=== PATIENT | female | born 1950 | race Caucasian/White ===

== ENCOUNTER 2018-03-23 09:32 | Emergency (ER) | payer MEDICARE, OTHER ==
[2018-03-23] MEDS ORDERED: guaiFENesin/DEXTROMETHORPHAN 10 ML UDC PO STA (11:29)
[2018-03-23] MEDS ORDERED: OXYMETAZOLINE NASAL SPRAY NAS STA (11:29)
--- NOTE | 2018-03-23 13:01 | XRAY Report ---
Reason: cough RUL ronchi Procedure Date: 03/23/2018 Accession Number: [id number] / [id number] Procedure: XR - Chest 2 View X-Ray CPT Code: 43777 FULL RESULT: EXAM: CHEST RADIOGRAPHY EXAM DATE: 03/23/2018 12:35 PM. CLINICAL HISTORY: Cough RUL ronchil. COMPARISON: None. TECHNIQUE: 2 views. FINDINGS: Lungs/Pleura: Mild medial right lower lung atelectasis or infiltrate. No dense consolidation. Probable minimal focal atelectasis or scarring at the left lateral lung base. No pleural effusion. No pneumothorax. Mediastinum: Heart and mediastinal contours are unremarkable. Other: None. IMPRESSION: Mild medial right lower lung infiltrate or atelectasis. RADIA
--- NOTE | 2018-03-23 13:29 | ED Physician Documentation ---
History of Present Illness - Stated complaint Stated Complaint: SOA/COUGH - Chief complaint Chief Complaint: Resp - Additonal information Additional information: hx from pt 67 f to ED with cough congestion for several days rest of family with same recently moved from [place] and no PMD no leg swelling Review of Systems Constitutional: reports: Myalgias. denies: Fever Nose: reports: Congestion Respiratory: reports: Cough GI: denies: Vomiting, Diarrhea Musculoskeletal: denies: Extremity swelling Immunocompromised: denies: Immunocompromised PD PAST MEDICAL HISTORY - Past Medical History Past Medical History: Yes Cardiovascular: None Respiratory: None Neuro: None Endocrine/Autoimmune: None GI: None [employer]ACHINE: Uterine cancer, Breast cancer : None HEENT: Chronic hearing loss Psych: None Musculoskeletal: None Derm: None - Past Surgical History Past Surgical History: Yes General: Cholecystectomy, Appendectomy /ST[employer]ACHINE: Hysterectomy, Mastectomy - Present Medications Home Medications: Ambulatory Orders Medication Instructions Recorded Confirmed Acetaminophen 650 mg ORAL Q6HR PRN 03/23/18 03/23/18 Albuterol Sulf [Ventolin Hfa 90 mcg INH Q6H PRN 03/23/18 03/23/18 Inhaler] Alprazolam [Xanax] 1 mg ORAL DAILY 03/23/18 03/23/18 Anastrozole 1 mg ORAL DAILY 03/23/18 03/23/18 Azithromycin [Zithromax] 250 mg PO DAILY #6 tablet 03/23/18 Fluticasone [Flonase] 50 mcg INH 03/23/18 03/23/18 QUEtiapine [SEROquel] 1 tab ORAL 03/23/18 Sertraline HCl [Zoloft] 200 mg ORAL DAILY 03/23/18 03/23/18 Tiotropium [place] [Spiriva] 1 cap ORAL DAILY 03/23/18 03/23/18 diphenhydrAMINE [Benadryl] 25 mg ORAL Q6H PRN 03/23/18 03/23/18 guaiFENesin/DEXTROMETHORPHAN 10 ml PO Q6H PRN #120 ml 03/23/18 [Robitussin Dm] predniSONE [Deltasone] 60 mg PO DAILY 5 Days #15 tablet 03/23/18 - Allergies Allergies/Adverse Reactions: Allergies Allergy/AdvReac Type Severity Reaction Status Date / Time No Known Drug Allergies Allergy Verified 03/23/18 09:50 - Social History Does the pt smoke?: Yes Smoking Status: Current every day smoker Does the pt drink ETOH?: No Does the pt have substance abuse?: No - Immunizations Immunizations are current?: Yes - POLST Patient has POLST: No PD ED PE NORMAL - Vitals Vital signs reviewed: Yes - General General: Alert and oriented X 3 - HEENT HEENT: Pharynx benign, Other (no sinus TTP). No: Ears normal (L TM retracted) - Neck Neck: Supple, no meningeal sign - Cardiac Cardiac: RRR - Respiratory Respiratory: Other (RUL ronchi) - Abdomen Abdomen: Soft - Derm Derm: Normal color - Extremities Extremities: No edema, No calf tenderness / cord - Neuro Neuro: Alert and oriented X 3 Results - Vitals Vitals: Vital Signs - 24 hr 03/23/18 03/23/18 09:48 10:30 Temperature 35.6 C L 36.4 C L Heart Rate 103 H Respiratory 20 Rate Blood Pressure 129/94 H O2 Saturation 96 Oxygen O2 Source Room air - Labs Labs: Laboratory Tests 03/23/18 10:38 Influenza A (Rapid) Negative Influenza B (Rapid) Negative Departure - Departure Disposition: 01 Home, Self Care Clinical Impression: Pneumonia Qualifiers: Pneumonia type: due to unspecified organism Laterality: right Lung location: lower lobe of lung Qualified Code(s): J18.1 - Lobar pneumonia, unspecified organism Condition: Good Instructions: ED Pneumonia Adult Prescriptions: Azithromycin [Zithromax] 250 mg PO DAILY #6 tablet guaiFENesin/DEXTROMETHORPHAN [Robitussin Dm] 10 ml PO Q6H PRN #120 ml PRN Reason: Cough predniSONE [Deltasone] 60 mg PO DAILY 5 Days #15 tablet Comments: The xray shows a right sided pneumonia I have prescribed antibiotics and cough medication Use you inhaler every 4 hr as needed. if you have worsening cough or shortness of breath add the steroids I prescribed
[2018-03-23 13:53] VITALS: BP 128/90
== END 2018-03-23 13:52 | disposition home or self-care (01) ==
LOC: ED 09:32
DX: J18.1 Lobar pneumonia, unspecified organism (principal); F17.200 Nicotine dependence, unspecified, uncomplicated
CPT/HCPCS: 71046; 87275; 87276; 99283; A9270

== ENCOUNTER 2018-07-22 11:45 | Outpatient (CLI) | payer MEDICARE, OTHER ==
[2018-07-22 18:44] LABS: BASOPHILS % (AUTO) 0.7 %; EOSINOPHILS # (AUTO) 0.1 10^3/uL (0.0-0.7); HGB - HEMOGLOBIN 13.5 g/dL (12.0-16.0); LYMPHOCYTES # (AUTO) 2.3 10^3/uL (1.5-3.5); LYMPHOCYTES % (AUTO) 33.5 %; MEAN CORPUSCULAR HEMOGLOBIN 30.6 pg (27.0-31.0); MEAN CORPUSCULAR HGB CONC 33.3 g/dL (32.0-36.0); MEAN CORPUSCULAR VOLUME 91.8 fL (81.0-99.0); MONOCYTES # (AUTO) 0.5 10^3/uL (0.0-1.0); MONOCYTES % (AUTO) 7.1 %; NEUTROPHILS # (AUTO) 3.9 10^3/uL (1.5-6.6); NEUTROPHILS % (AUTO) 56.7 %; PLT - PLATELET COUNT 258 10^3/uL (130-450); RED BLOOD COUNT 4.41 10^6/uL (4.20-5.40); RED CELL DISTRIBUTION WIDTH 14.6 % (12.0-15.0); WHITE BLOOD COUNT 6.8 x10^3/uL (4.8-10.8)
[2018-07-22 19:15] LABS: ALBUMIN 3.9 g/dL (3.2-5.5); ALBUMIN/GLOBULIN RATIO 1.1 (1.0-2.2); BILIRUBIN,TOTAL 0.3 mg/dL (0.2-1.0); CALCIUM 9.4 mg/dL (8.5-10.3); CREATININE 0.7 mg/dL (0.4-1.0); TOTAL PROTEIN 7.3 g/dL (6.7-8.2)
== END 2018-07-22 11:46 | disposition home or self-care (01) ==
LOC: LAB.WCP 11:45
PROVIDERS: ATTEND Nurse Practitioner
DX: R06.02 Shortness of breath (principal)
CPT/HCPCS: 36415; 80053; 85025

== ENCOUNTER 2018-07-27 09:19 | Outpatient (CLI) | payer MEDICARE, OTHER ==
[2018-07-27] MEDS ORDERED: ALBUTEROL NEB 2.5 MG/3 ML INH SCH (09:42)
== END 2018-07-27 09:20 | disposition home or self-care (01) ==
LOC: RT 09:19
PROVIDERS: ATTEND Nurse Practitioner
DX: R06.02 Shortness of breath (principal); F17.200 Nicotine dependence, unspecified, uncomplicated
CPT/HCPCS: 94010; 94664; 94729

== ENCOUNTER 2018-09-05 12:57 | Outpatient (CLI) | payer MEDICARE, OTHER ==
--- NOTE | 2018-09-06 08:37 | DEXA Report ---
Reason: BONE DISORDER Procedure Date: 09/05/2018 Accession Number: [id number] / [id number] Procedure: DEX - Dexa Spine and/or Hip CPT Code: FULL RESULT: EXAM: Dexa Spine and/or Hip DATE: 09/05/2018 1:18 PM CLINICAL HISTORY: BONE DISORDER TECHNIQUE: Dual energy x-ray absorptiometry (DXA) was performed on a [employer] System. Regions measured are the AP Spine, femoral neck, and if needed forearm. COMPARISON: None. In accordance with the International Society for Clinical Densitometry (ISCD) guidelines, data from previous exams may be reanalyzed using current recommendations and techniques. This is done to allow a more accurate basis for comparison with the current study. FINDINGS: The data for the lumbar spine is as follows: BMD (g/cm/cm) T-SCORE Z-SCORE REGION L1 0.885 -2.0 -1.6 L2 0.920 -2.3 -1.9 L3 0.998 -1.7 -1.2 L4 1.053 -1.2 -0.7 TOTAL 0.972 -1.7 -1.3 NOTE: All evaluable vertebrae are used for classification The data for the hip is as follows: BMD (g/cm/cm) T-SCORE Z-SCORE REGION Neck 0.801 -1.7 -0.8 TOTAL 0.895 -0.9 -0.3 NOTE: The femoral neck or total proximal femur, whichever is lowest, is used for classification. IMPRESSION: THE WHO CLASSIFICATION BASED ON THE INTERNATIONAL REFERENCE STANDARD IS OSTEOPENIA. THE FRACTURE RISK IS INCREASED. RECOMMENDATION: Patients with diagnosis of osteoporosis or osteopenia should have regular bone mineral density assessment. For those eligible for Medicare, routine testing is allowed once every 2 years. Testing frequency can be increased for patients who have rapidly progressing disease or for those who are receiving medical therapy to restore bone mass. COMMENT: World Health Organization (WHO) definitions for osteoporosis and osteopenia: NORMAL BMD: T-score at -1.0 or higher, fracture risk is low OSTEOPENIA BMD: T-score between -1.0 and -2.5, fracture risk is increased. OSTEOPOROSIS BMD: T-score at -2.5 or lower, fracture risk is high. National Osteoporosis Foundation recommends: 1. Obtain adequate dietary calcium (at least 1200 mg per day) and vitamin D (400-800 international units per day). 2. Participate, as appropriate, in regular weightbearing and muscle-strengthening exercise. 3. Avoid tobacco use and reduce alcohol and caffeine intake. 4. For more detailed information see the website at www.NOF.org.
== END 2018-09-05 12:58 | disposition home or self-care (01) ==
LOC: DI 12:57
PROVIDERS: ATTEND Nurse Practitioner
DX: M85.89 Other specified disorders of bone density and structure, multiple sites (principal)
CPT/HCPCS: 77080

== ENCOUNTER 2018-09-09 11:30 | Outpatient (CLI) | payer MEDICARE, OTHER | END 2018-09-09 11:31 | disposition home or self-care (01) | LOC: LAB.WCP 11:30 | PROVIDERS: ATTEND Family Medicine | DX: M89.9 Disorder of bone, unspecified (principal); F41.8 Other specified anxiety disorders; Z13.29 Encounter for screening for other suspected endocrine disorder | CPT/HCPCS: 36415; 84443 ==

== ENCOUNTER 2018-11-05 10:39 | Emergency (ER) | payer MEDICARE, OTHER ==
[2018-11-05 10:46] VITALS: BP 118/86
== END 2018-11-05 12:00 | disposition left against medical advice (07) ==
LOC: ED 10:39
DX: Z53.21 Procedure and treatment not carried out due to patient leaving prior to being seen by health care provider (principal)

== ENCOUNTER 2019-01-30 09:47 | Outpatient (CLI) | payer MEDICARE, OTHER ==
[2019-01-30 12:12] LABS: ALBUMIN 3.6 g/dL (3.2-5.5); BILIRUBIN,TOTAL 0.4 mg/dL (0.2-1.0); CREATININE 0.7 mg/dL (0.4-1.0); TOTAL PROTEIN 7.3 g/dL (6.7-8.2)
[2019-01-30 12:59] LABS: BASOPHILS % (AUTO) 0.4 %; EOSINOPHILS # (AUTO) 0.2 10^3/uL (0.0-0.7); EOSINOPHILS % (AUTO) 1.9 %; LYMPHOCYTES # (AUTO) 1.6 10^3/uL (1.5-3.5); LYMPHOCYTES % (AUTO) 19.3 %; MEAN CORPUSCULAR HEMOGLOBIN 30.4 pg (27.0-31.0); MEAN CORPUSCULAR HGB CONC 31.9 g/dL (32.0-36.0); MEAN CORPUSCULAR VOLUME 95.1 fL (81.0-99.0); MEAN PLATELET VOLUME 10.2 fL (7.9-10.8); MONOCYTES # (AUTO) 0.6 10^3/uL (0.0-1.0); NEUTROPHILS # (AUTO) 5.9 10^3/uL (1.5-6.6); PLT - PLATELET COUNT 253 10^3/uL (130-450); RED BLOOD COUNT 4.28 10^6/uL (4.20-5.40); RED CELL DISTRIBUTION WIDTH 13.9 % (12.0-15.0); WHITE BLOOD COUNT 8.3 x10^3/uL (4.8-10.8)
== END 2019-01-30 23:59 | disposition home or self-care (01) ==
LOC: LAB.N 09:47
PROVIDERS: ATTEND Family Medicine
DX: R10.9 Unspecified abdominal pain (principal)
CPT/HCPCS: 36415; 80053; 82150; 83690; 85025

== ENCOUNTER 2019-01-30 09:55 | Outpatient (CLI) | payer MEDICARE, OTHER ==
--- NOTE | 2019-01-30 14:08 | XRAY Report ---
Reason: abdominal discomfort Procedure Date: 01/30/2019 Accession Number: [id number] / [id number] Procedure: XRN - Abdomen Acute CPT Code: FULL RESULT: EXAM: ABDOMINAL SERIES AND PA CHEST EXAM DATE: 01/30/2019 10:29 AM. CLINICAL HISTORY: Abdominal discomfort; left flank pain. COMPARISON: CHEST 2 VIEW 03/23/2018 12:29 PM. TECHNIQUE: 2 views abdomen and 1 view chest. FINDINGS: CHEST: Lungs/Pleura: No focal opacities. No effusion or pneumothorax. Mediastinum: Within exam limitations, cardiomediastinal contour is normal. ABDOMEN: Bowel Gas Pattern: Within normal limits. No dilated loops or abnormal fluid levels. Free Air: None. Other: Tiny focus of right upper quadrant calcification of unknown etiology. Differential diagnosis includes cholelithiasis, right renal calculus, and osteochondral calcification. Otherwise no visualized calcifications. No evidence of radiopaque left intrarenal calculus. IMPRESSION: 1. Tiny right upper quadrant calcification of unknown etiology. 2. No acute cardiopulmonary abnormality. 3. Otherwise unremarkable abdomen. RADIA
== END 2019-01-30 09:56 | disposition home or self-care (01) ==
LOC: DI.N 09:55
PROVIDERS: ATTEND Family Medicine
DX: R10.9 Unspecified abdominal pain (principal); R93.5 Abnormal findings on diagnostic imaging of other abdominal regions, including retroperitoneum
CPT/HCPCS: 36415; 74022; 80053; 82150; 83690; 85025

== ENCOUNTER 2019-02-03 09:30 | Outpatient (CLI) | payer MEDICARE, OTHER | END 2019-02-03 23:59 | disposition home or self-care (01) | LOC: LAB.R 09:30 | PROVIDERS: ATTEND Family Medicine | DX: R10.9 Unspecified abdominal pain (principal) | CPT/HCPCS: 87493 ==

== ENCOUNTER 2019-02-03 10:04 | Outpatient (CLI) | payer MEDICARE, OTHER ==
--- NOTE | 2019-02-05 10:26 | Ultrasound Report ---
Reason: ABDOMINAL DISCOMFORT Procedure Date: 02/03/2019 Accession Number: [id number] / [id number] Procedure: US - Abdomen Complete CPT Code: FULL RESULT: EXAM: ABDOMEN ULTRASOUND EXAM DATE: 02/03/2019 10:48 AM. CLINICAL HISTORY: Abdominal discomfort. COMPARISON: None. TECHNIQUE: Real-time scanning was performed with static images obtained. FINDINGS: Liver: Diffusely increased in echotexture with mildly diminished beam penetration consistent with probable steatosis. No focal lesions appreciated. 17.2 cm. Main portal vein flow: Hepatopetal. Gallbladder: Surgically absent. Biliary System: Common bile duct measures 13.1 mm in the proximal aspect with gradual taper to 4 mm in the distal duct. No intrahepatic ductal dilatation. No evidence of choledocholithiasis. Pancreas: Visualized portion is unremarkable. Kidneys: Right: 11.7 cm longitudinally. Normal. No contour-deforming mass, stones, or hydronephrosis. Left: 12.5 cm longitudinally. Normal. No contour-deforming mass, stones, or hydronephrosis. Spleen: 12.1 x 4.0 x 9.5 cm. Normal in size and echotexture. Aorta and Inferior Vena Cava: Unremarkable. Aortic diameters 2.6 cm proximal, 2.3 cm mid, and 1.8 x 1.7 cm distally. Other: None. IMPRESSION: 1. Probable hepatic steatosis. 2. Prominence of the extrahepatic common bile duct consistent with prior cholecystectomy. RADIA
== END 2019-02-03 10:05 | disposition home or self-care (01) ==
LOC: DI 10:04
PROVIDERS: ATTEND Family Medicine
DX: R10.9 Unspecified abdominal pain (principal)
CPT/HCPCS: 76700; 87493

== ENCOUNTER 2019-06-26 08:00 | Outpatient (CLI) | payer MEDICARE, OTHER | END 2019-06-26 23:59 | disposition home or self-care (01) | LOC: LAB.R 08:00 | PROVIDERS: ATTEND Family Medicine | DX: R39.9 Unspecified symptoms and signs involving the genitourinary system (principal) | CPT/HCPCS: 87077; 87086 ==

== ENCOUNTER 2019-07-15 08:00 | Outpatient (CLI) | payer MEDICARE, OTHER | END 2019-07-15 23:59 | disposition home or self-care (01) | LOC: LAB.R 08:00 | PROVIDERS: ATTEND Family Medicine | DX: J06.9 Acute upper respiratory infection, unspecified (principal) | CPT/HCPCS: 87275; 87276 ==

== ENCOUNTER 2019-07-15 14:14 | Outpatient (CLI) | payer MEDICARE, OTHER ==
--- NOTE | 2019-07-15 14:56 | XRAY Report ---
Reason: shoulder joint pain,right Procedure Date: 07/15/2019 Accession Number: [id number] / [id number] Procedure: XRN - Shoulder 3 View RT CPT Code: Final Report FULL RESULT: EXAM: RIGHT SHOULDER RADIOGRAPHY EXAM DATE: 07/15/2019 02:36 PM. CLINICAL HISTORY: Shoulder joint pain, right. COMPARISON: ABDOMEN ACUTE 01/30/2019 10:11 AM. TECHNIQUE: 3 views. FINDINGS: Healed previous fracture of the right humeral head/neck, healed bone extending medially and caudally to the glenohumeral articulation. The glenohumeral articulation space and acromioclavicular space appear preserved. IMPRESSION: Healed previous right humeral head/neck fracture. No acute bone processes identified. RADIA
== END 2019-07-15 14:15 | disposition home or self-care (01) ==
LOC: DI.N 14:14
PROVIDERS: ATTEND Family Medicine
DX: M25.511 Pain in right shoulder (principal); J06.9 Acute upper respiratory infection, unspecified
CPT/HCPCS: 87275; 87276

== ENCOUNTER 2019-08-05 12:37 | Outpatient (CLI) | payer MEDICARE, OTHER ==
--- NOTE | 2019-08-07 09:29 | CT Report ---
Reason: TOBACCO USER Procedure Date: 08/05/2019 Accession Number: [id number] / [id number] Procedure: CT - Low Dose Lung Cancer Screen CPT Code: Final Report FULL RESULT: EXAM CT LUNG SCREEN EXAM DATE: 08/05/2019 12:49 PM. HISTORY: 68-year-old patient with 21-ffyv-feck smoking history. Currently smoking: Yes. History of breast cancer with mastectomy 2015. COMPARISON: CHEST W/O 08/05/2018 11:16 AM. TECHNIQUE: CT examination of the entire thorax without contrast was performed using low-dose technique. Thin section coronal, axial, sagittal and MIP axial images were obtained. In accordance with CT protocol optimization, one or more of the following dose reduction techniques were utilized for this exam: automated exposure control, adjustment of mA and/or KV based on patient size, or use of iterative reconstructive technique. FINDINGS: Nodules: Right upper lobe: Calcified posterior right upper lobe subpleural granuloma. Right middle lobe: None. Right lower lobe: None. Left upper lobe: Stable tiny 2 mm left upper lobe lung nodule in series 4 image 77. Left lower lobe: None. Emphysema: None. Pleura: Unremarkable. Aorta: Mild atherosclerotic calcifications. No thoracic aortic aneurysm or intramural hematoma. Mediastinum: Unremarkable. Coronary calcifications: Mild to moderate. Other pulmonary findings: None. Other extrapulmonary findings: Prior right mastectomy. Prior cholecystectomy. IMPRESSION: Lung-RADS ASSESSMENT CATEGORY: 2 - benign appearance or behavior. Probability of malignancy: Less than 1%. RECOMMENDATION: Continue annual screening with LDCT in 12 months. RADIA
== END 2019-08-05 12:38 | disposition home or self-care (01) ==
LOC: DI 12:37
PROVIDERS: ATTEND Internal Medicine Hematology & Oncology
DX: Z12.2 Encounter for screening for malignant neoplasm of respiratory organs (principal); F17.210 Nicotine dependence, cigarettes, uncomplicated

== ENCOUNTER 2019-08-18 19:22 | Outpatient (CLI) | payer MEDICARE, OTHER | END 2019-08-18 19:23 | disposition home or self-care (01) | LOC: COV 19:22 | PROVIDERS: ATTEND Family Medicine | DX: R05 Cough (principal); R06.02 Shortness of breath; R06.2 Wheezing | CPT/HCPCS: 81599 ==

== ENCOUNTER 2019-12-30 07:00 | Outpatient (CLI) | payer MEDICARE, OTHER | END 2019-12-30 23:59 | disposition home or self-care (01) | LOC: LAB.R 07:00 | PROVIDERS: ATTEND Family Medicine | DX: J06.9 Acute upper respiratory infection, unspecified (principal); Z20.828 Contact with and (suspected) exposure to other viral communicable diseases ==

== ENCOUNTER 2019-12-31 13:59 | Outpatient (CLI) | payer MEDICARE, OTHER ==
--- NOTE | 2020-01-01 05:47 | Mammography Report ---
UNILATERAL LEFT DIGITAL SCREENING MAMMOGRAM 3D/2D: 12/31/2019 CLINICAL: Routine screening. Personal history of right breast cancer. Comparison is made to exams dated: 01/20/2016 ultrasound and 11/18/2018 mammogram - [facility]. The tissue of left breast is predominantly fatty. No significant masses, calcifications, or other findings are seen in the breast. There has been no significant interval change. IMPRESSION: NEGATIVE There is no mammographic evidence of malignancy. A 1 year screening mammogram is recommended. This exam was interpreted at Station ID: [id number]. NOTE: For mammograms, a report in lay terms will be sent to the patient. Approximately 15% of breast malignancies will not be visualized mammographically. In the management of a palpable breast mass, a negative mammogram must not discourage biopsy of a clinically suspicious lesion. Electronically Signed By: Slime stack/penrad:12/31/2019 15:35:45 ACR BI-RADS Category 1: Negative 3341F PARENCHYMAL PATTERN: (F) - The breast(s) demonstrate(s) diffuse fatty replacement. BI-RADS CATEGORY: (1) - 1 RECOMMENDATION: (ANNUAL) - Recommend routine annual screening mammography. [id number] 1 year screening LATERALITY: (B)
== END 2019-12-31 14:00 | disposition home or self-care (01) ==
LOC: DI 13:59
PROVIDERS: ATTEND Internal Medicine Hematology & Oncology
DX: Z12.31 Encounter for screening mammogram for malignant neoplasm of breast (principal); Z85.3 Personal history of malignant neoplasm of breast
CPT/HCPCS: 77063

== ENCOUNTER 2020-01-31 12:46 | Emergency (ER) | payer MEDICARE, OTHER ==
[2020-01-31] MEDS ORDERED: predniSONE 20 MG TABLET PO STA (13:46)
--- NOTE | 2020-01-31 13:51 | ED Physician Documentation ---
History of Present Illness - Stated complaint Stated Complaint: SOA - Chief complaint Chief Complaint: Resp - History obtained from History obtained from: Patient, Family - History of Present Illness Timing: How many days ago (2) Pain level max: 0 Pain level now: 0 - Additonal information Additional information: 69-year-old female presents to the emergency department complaining of cough and congestion for the past 2 days. Has a history of COPD, is on Spiriva and albuterol. Occasionally uses a Spiriva, has not used her albuterol. No fevers. No chills. States had a negative coronavirus test 3 weeks ago. Feels like the cough is dry. She has been taking decongestants as well. No rash. No abdominal pain. No nausea or vomiting. Review of Systems Constitutional: denies: Fever, Chills GI: denies: Vomiting, Diarrhea Skin: denies: Rash Musculoskeletal: denies: Neck pain, Back pain Neurologic: denies: Headache PD PAST MEDICAL HISTORY - Past Medical History Cardiovascular: None Respiratory: None Neuro: None Endocrine/Autoimmune: None GI: None MAITRE D': Uterine cancer, Breast cancer : None HEENT: Chronic hearing loss Psych: None Musculoskeletal: None Derm: None - Past Surgical History Past Surgical History: Yes General: Cholecystectomy, Appendectomy /MAITRE D': Hysterectomy, Mastectomy - Present Medications Home Medications: Ambulatory Orders Medication Instructions Recorded Confirmed Acetaminophen 650 mg ORAL Q6HR PRN 03/23/18 01/28/20 Albuterol Sulf [Ventolin Hfa 90 mcg INH Q6H PRN 03/23/18 01/28/20 Inhaler] Alprazolam [Xanax] 1 mg ORAL DAILY 03/23/18 01/28/20 Fluticasone [Flonase] 50 mcg INH PRN PRN 03/23/18 01/28/20 QUEtiapine [SEROquel] 1 tab ORAL DAILY 03/23/18 01/28/20 Sertraline HCl [Zoloft] 200 mg ORAL DAILY 03/23/18 01/28/20 Tiotropium [place] [Spiriva] 1 cap ORAL DAILY 03/23/18 01/28/20 diphenhydrAMINE [Benadryl] 25 mg ORAL Q6H PRN 03/23/18 01/28/20 guaiFENesin/DEXTROMETHORPHAN 10 ml PO Q6H PRN #120 ml 11/24/18 09/30/20 [Robitussin Dm] Quetiapine Fumarate [Seroquel] 50 mg PO DAILY 05/27/18 01/28/20 Sertraline HCl [Zoloft] 2 tab PO DAILY 05/27/18 01/28/20 Tiotropium [place] [Spiriva] 18 mcg IH BID 05/27/18 01/28/20 Anastrozole [Arimidex] 1 mg PO DAILY #90 tab 01/28/20 predniSONE [Deltasone] 10 mg PO [id number] #42 tab 01/31/20 - Allergies Allergies/Adverse Reactions: Allergies Allergy/AdvReac Type Severity Reaction Status Date / Time No Known Drug Allergies Allergy Verified 01/31/20 13:05 - Social History Does the pt smoke?: Yes Smoking Status: Current every day smoker Does the pt drink ETOH?: No Does the pt have substance abuse?: No - Immunizations Immunizations are current?: Yes - POLST Patient has POLST: No PD ED PE NORMAL - Vitals Vital signs reviewed: Yes - General General: Alert and oriented X 3, No acute distress - HEENT HEENT: Moist mucous membranes - Neck Neck: Supple, no meningeal sign - Cardiac Cardiac: RRR - Respiratory Respiratory: Other (Diminished breath sounds bilaterally. No respiratory distress) - Abdomen Abdomen: Soft, Non tender, Non distended - Derm Derm: Warm and dry, No rash - Extremities Extremities: No edema - Neuro Neuro: Alert and oriented X 3 - Psych Psych: Normal mood, Normal affect Results - Vitals Vitals: Vital Signs - 24 hr 01/31/20 01/31/20 12:54 14:48 Temperature 37 C Heart Rate 98 71 Respiratory 20 15 Rate Blood Pressure 132/83 H 126/72 O2 Saturation 97 96 Oxygen O2 Source Room air - Rads (name of study) cxr Radiology: Prelim report reviewed, EMP read contemporaneously, See rad report (No acute disease) PD MEDICAL DECISION MAKING - ED course Complexity details: reviewed results, re-evaluated patient, considered differential, d/w patient ED course: 69-year-old female with what appears to be a viral upper respiratory infection. She is well-appearing, nontoxic. No respiratory distress. Will place on a steroid taper for her likely COPD. She will start to use her albuterol inhaler at home with a spacer. Patient counseled regarding signs and symptoms for which I believe and urgent re-evaluation would be necessary. Patient with good understanding of and agreement to plan and is comfortable going home at this time This document was made in part using voice recognition software. While efforts are made to proofread this document, sound alike and grammatical errors may occur. Coronavirus test was sent. Departure - Departure Disposition: Home, Self Care Clinical Impression: Upper respiratory tract infection Qualifiers: URI type: unspecified viral URI Qualified Code(s): J06.9 - Acute upper respiratory infection, unspecified Condition: Good Instructions: ED Viral Syndrome Follow-Up: SARA PABLO MD [Primary Care Provider] - Within 1 week Prescriptions: predniSONE [Deltasone] 10 mg PO [id number] #42 tab Comments: Begin to use your albuterol inhaler at home. Make sure you are using it with a spacer. Your coronavirus test should return in the next 24 to 48 hours. Your x-ray does not show any pneumonia. No antibiotics are indicated at this time. Return if you worsen. Discharge Date/Time: 01/31/20 14:54
--- NOTE | 2020-01-31 14:32 | XRAY Report ---
PROCEDURE: Chest 1 View X-Ray INDICATIONS: cough TECHNIQUE: One view of the chest was acquired. COMPARISON: CT chest August 05, 2019 FINDINGS: Surgical changes and devices: None. Lungs and pleura: No pleural effusions or pneumothorax. Lungs are clear. Mediastinum: Mediastinal contours appear normal. Heart size is normal. Bones and chest wall: No suspicious bony lesions. Degenerative changes of the right glenohumeral yola nt. Overlying soft tissues appear unremarkable. IMPRESSION: No acute cardiopulmonary abnormality. Reviewed by: Jose Roberto Bauer on 01/31/2020 1:31 PM RUPA Approved by: Jose Roberto Bauer on 01/31/2020 1:31 PM RUPA Station ID: [id number]
[2020-01-31 14:49] VITALS: BP 126/72
== END 2020-01-31 14:54 | disposition home or self-care (01) ==
LOC: ED 12:46
DX: J06.9 Acute upper respiratory infection, unspecified (principal); J44.9 Chronic obstructive pulmonary disease, unspecified; F17.200 Nicotine dependence, unspecified, uncomplicated; Z20.828 Contact with and (suspected) exposure to other viral communicable diseases
CPT/HCPCS: 71045; 99284; J7512; U0004

== ENCOUNTER 2020-02-04 08:00 | Outpatient (CLI) | payer MEDICARE, OTHER | END 2020-02-04 23:59 | disposition home or self-care (01) | LOC: LAB.R 08:00 | PROVIDERS: ATTEND Nurse Practitioner | DX: J06.9 Acute upper respiratory infection, unspecified (principal); Z20.828 Contact with and (suspected) exposure to other viral communicable diseases ==

== ENCOUNTER 2020-02-27 13:00 | Outpatient (CLI) | payer MEDICARE, OTHER | END 2020-02-27 23:59 | disposition home or self-care (01) | LOC: LAB.R 13:00 | PROVIDERS: ATTEND Family Medicine | DX: J44.1 Chronic obstructive pulmonary disease with (acute) exacerbation (principal); Z20.828 Contact with and (suspected) exposure to other viral communicable diseases ==

== ENCOUNTER 2020-08-02 10:52 | Outpatient (CLI) | payer MEDICARE, OTHER | END 2020-08-02 10:53 | disposition home or self-care (01) | LOC: LAB 10:52 | PROVIDERS: ATTEND Internal Medicine | DX: Z53.9 Procedure and treatment not carried out, unspecified reason (principal) ==

== ENCOUNTER 2020-11-22 11:47 | Outpatient (CLI) | payer MEDICARE, OTHER | END 2020-11-22 23:59 | disposition home or self-care (01) | LOC: LAB.N 11:47 | PROVIDERS: ATTEND Family Medicine | DX: R05 Cough (principal); Z20.822 Contact with and (suspected) exposure to COVID-19 ==

== ENCOUNTER 2020-12-21 13:26 | Outpatient (CLI) | payer MEDICARE, OTHER ==
--- NOTE | 2020-12-22 10:00 | XRAY Report ---
PROCEDURE: Shoulder 3 View RT INDICATIONS: R SHOULDER PX TECHNIQUE: 3 views of the shoulder were acquired. COMPARISON: None. FINDINGS: Bones: Old healed impacted right proximal humeral fracture is seen. Moderate acromioclavicular joint and glenohumeral joint osteoarthritic changes are noted. No acute fracture or dislocation. No suspic ious bony lesions. Visualized ribs appear intact. Soft tissues: No suspicious soft tissue calcifications. IMPRESSION: Moderate right shoulder joint osteoarthritis and old healed impacted right proximal [place] ral fracture. No acute fracture or dislocation. Reviewed by: Paulo Dimas MD on 12/22/2020 9:58 AM PDT Approved by: Paulo Dimas MD on 12/22/2020 9:58 AM PDT Station ID: [id number]
== END 2020-12-21 23:59 | disposition home or self-care (01) ==
LOC: DI.N 13:26
PROVIDERS: ATTEND Family Medicine
DX: M19.011 Primary osteoarthritis, right shoulder (principal); S42.201D Unspecified fracture of upper end of right humerus, subsequent encounter for fracture with routine healing

== ENCOUNTER 2021-01-31 08:00 | Outpatient (CLI) | payer MEDICARE, OTHER | END 2021-01-31 23:59 | disposition home or self-care (01) | LOC: LAB.N 08:00 | PROVIDERS: ATTEND Family Medicine | DX: Z20.822 Contact with and (suspected) exposure to COVID-19 (principal) ==

== ENCOUNTER 2021-02-16 07:00 | Outpatient (CLI) | payer MEDICARE, OTHER ==
--- NOTE | 2021-02-16 15:14 | DEXA Report ---
PROCEDURE: Dexa Spine and/or Hip INDICATIONS: OSTEOPENIA TECHNIQUE: Dual energy x-ray absorptiometry (DXA) was performed on a [employer] System. Regions measur ed are the AP Spine, femoral neck, and if needed forearm. COMPARISON: September 05, 2018 FINDINGS: Lumbar Spine: Bone Mineral Density 1.007 g/cm/cm,T score -1.4, osteopenia. Left Femoral Neck: Bone Mineral Density 0.765 g/cm/cm, T score -2, osteopenia. (T score greater or equal to -1.0: NORMAL) (T score from -1.1 to -2.4: OSTEOPENIA) (T score less than or equal to -2.5 to: OSTEOPOROSIS) Impression: Osteopenic changes. Patients with diagnosis of osteoporosis or osteopenia should have regular bone mineral density assess ment. For those eligible for Medicare, routine testing is allowed once every 2 years. Testing frequ ency can be increased for patients who have rapidly progressing disease or for those who are receivin g medical therapy to restore bone mass. Reviewed by: Abraham Melo MD on 02/16/2021 3:13 PM PDT Approved by: Abraham Melo MD on 02/16/2021 3:13 PM PDT Station ID: [id number]
== END 2021-02-18 23:59 | disposition home or self-care (01) ==
LOC: DI 07:00
PROVIDERS: ATTEND Nurse Practitioner
DX: M85.89 Other specified disorders of bone density and structure, multiple sites (principal)

== ENCOUNTER 2021-02-16 13:40 | Outpatient (CLI) | payer MEDICARE, OTHER ==
--- NOTE | 2021-02-17 09:56 | Mammography Report ---
UNILATERAL LEFT DIGITAL SCREENING MAMMOGRAM 3D/2D - RIGHT BREAST POST MASTECTOMY: 02/16/2021 CLINICAL: Routine screening. Personal history of right breast cancer. Comparison is made to exams dated: 12/31/2019 mammogram, 11/18/2018 mammogram, and 01/20/2016 ultrasound - Merged with [facility]. The tissue of left breast is predominantly fatty. No significant masses, calcifications, or other findings are seen in the breast. There has been no significant interval change. IMPRESSION: NEGATIVE There is no mammographic evidence of malignancy. A 1 year screening mammogram is recommended. This exam was interpreted at Station ID: [id number]. NOTE: For mammograms, a report in lay terms will be sent to the patient. Approximately 15% of breast malignancies will not be visualized mammographically. In the management of a palpable breast mass, a negative mammogram must not discourage biopsy of a clinically suspicious lesion. Electronically Signed By: Davion Martinez acr/penrad:02/16/2021 15:05:53 ACR BI-RADS Category 1: Negative 3341F PARENCHYMAL PATTERN: (F) - The breast(s) demonstrate(s) diffuse fatty replacement. BI-RADS CATEGORY: (1) - 1 RECOMMENDATION: (ANNUAL) - Recommend routine annual screening mammography. [id number] 1 year screening LATERALITY: (B)
== END 2021-02-16 13:41 | disposition home or self-care (01) ==
LOC: DI 13:40
PROVIDERS: ATTEND Internal Medicine Medical Oncology
DX: Z12.31 Encounter for screening mammogram for malignant neoplasm of breast (principal); Z08 Encounter for follow-up examination after completed treatment for malignant neoplasm; Z85.3 Personal history of malignant neoplasm of breast

== ENCOUNTER 2021-03-04 16:06 | Outpatient (CLI) | payer MEDICARE, OTHER ==
[2021-03-04 20:51] LABS: BASOPHILS % (AUTO) 0.4 %; EOSINOPHILS # (AUTO) 0.1 10^3/uL (0.0-0.7); EOSINOPHILS % (AUTO) 1.4 %; HCT - HEMATOCRIT 42.6 % (37.0-47.0); HGB - HEMOGLOBIN 13.8 g/dL (12.0-16.0); LYMPHOCYTES # (AUTO) 2.6 10^3/uL (1.5-3.5); LYMPHOCYTES % (AUTO) 26.9 %; MEAN CORPUSCULAR HEMOGLOBIN 30.5 pg (27.0-31.0); MEAN CORPUSCULAR HGB CONC 32.4 g/dL (32.0-36.0); MEAN CORPUSCULAR VOLUME 94.2 fL (81.0-99.0); MEAN PLATELET VOLUME 10.4 fL (7.9-10.8); MONOCYTES # (AUTO) 0.7 10^3/uL (0.0-1.0); MONOCYTES % (AUTO) 7.4 %; NEUTROPHILS # (AUTO) 6.2 10^3/uL (1.5-6.6); NEUTROPHILS % (AUTO) 63.5 %; PLT - PLATELET COUNT 293 10^3/uL (130-450); RED BLOOD COUNT 4.52 10^6/uL (4.20-5.40); RED CELL DISTRIBUTION WIDTH 13.4 % (12.0-15.0); WHITE BLOOD COUNT 9.8 x10^3/uL (4.8-10.8)
[2021-03-04 21:01] LABS: ALBUMIN 3.9 g/dL (3.2-5.5); ALBUMIN/GLOBULIN RATIO 1.1 (1.0-2.2); BILIRUBIN,TOTAL 0.4 mg/dL (0.2-1.0); CREATININE 0.9 mg/dL (0.4-1.0); CRP - C-REACTIVE PROTEIN 2.7 mg/dL (0-1.0); TOTAL PROTEIN 7.5 g/dL (6.7-8.2); URIC ACID 5.4 mg/dL (2.6-7.2)
== END 2021-03-04 16:07 | disposition home or self-care (01) ==
LOC: LAB.N 16:06
PROVIDERS: ATTEND Nurse Practitioner
DX: M25.511 Pain in right shoulder (principal); R53.83 Other fatigue
CPT/HCPCS: 36415; 80053; 84550; 85025; 85651; 86140; 86200

== ENCOUNTER 2021-05-09 17:02 | Emergency (ER) | payer MEDICARE, OTHER ==
[2021-05-09 17:26] VITALS: BP 147/81
[2021-05-09] MEDS ORDERED: HYDROmorphone 1 MG/ML CARPUJECT IM STA (17:40)
--- NOTE | 2021-05-09 17:43 | ED Physician Documentation ---
PD HPI UPPER EXT INJURY - Stated complaint Stated Complaint: left shoulder px - Chief complaint Chief Complaint: Ext Problem - History obtained from History obtained from: Patient - Additonal information Additional information: 70-year-old woman presents with a flare of polymyalgia rheumatica affecting the left shoulder. About 5 days now she has had excruciating shoulder pain similar to prior flares. 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 She denies fevers or chills. There was no injury. 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 : None HEENT: Chronic hearing loss Psych: None Musculoskeletal: None Derm: None - Past Surgical History Past Surgical History: Yes General: Cholecystectomy, Appendectomy /CREATIVE PROJECT MANAGER: Hysterectomy, Mastectomy - Present Medications Home Medications: Ambulatory Orders Medication Instructions Recorded Confirmed Acetaminophen 650 mg ORAL Q6HR PRN 03/23/18 08/09/20 Albuterol Sulf [Ventolin Hfa 90 mcg INH Q6H PRN 03/23/18 08/09/20 Inhaler] Alprazolam [Xanax] 1 mg ORAL DAILY 03/23/18 08/09/20 Fluticasone [Flonase] 50 mcg INH PRN PRN 03/23/18 08/09/20 QUEtiapine [SEROquel] 1 tab ORAL DAILY 03/23/18 08/09/20 Sertraline HCl [Zoloft] 200 mg ORAL DAILY 03/23/18 08/09/20 Tiotropium [place] [Spiriva] 1 cap ORAL DAILY 03/23/18 08/09/20 diphenhydrAMINE [Benadryl] 25 mg ORAL Q6H PRN 03/23/18 08/09/20 guaiFENesin/DEXTROMETHORPHAN 10 ml PO Q6H PRN #120 ml 03/23/18 08/09/20 [Robitussin Dm] Quetiapine Fumarate [Seroquel] 50 mg PO DAILY 05/27/18 08/09/20 Sertraline HCl [Zoloft] 2 tab PO DAILY 05/27/18 08/09/20 Tiotropium [place] [Spiriva] 18 mcg IH BID 05/27/18 08/09/20 Anastrozole [Arimidex] 1 mg PO DAILY #90 tab 01/28/20 08/09/20 predniSONE [Deltasone] 10 mg PO [id number] #42 tab 01/31/20 08/09/20 HYDROcod/ACETAM 5/325 [[place] 5/325] 1 - 2 tab PO Q6H PRN #20 tablet 05/09/21 - Allergies Allergies/Adverse Reactions: Allergies Allergy/AdvReac Type Severity Reaction Status Date / Time No Known Drug Allergies Allergy Verified 05/09/21 17:26 - Social History Does the pt smoke?: Yes Smoking Status: Current every day smoker Does the pt drink ETOH?: No Does the pt have substance abuse?: No - Immunizations Immunizations are current?: Yes - POLST Patient has POLST: No PD ED PE NORMAL - Vitals Vital signs reviewed: Yes - General General: Alert and oriented X 3, No acute distress - Extremities Extremities: Other (Shoulder is not tender or warm. She is in a lot of pain with any attempts at range of motion.) - Neuro Neuro: Alert and oriented X 3, Normal speech Results - Vitals Vitals: Vital Signs - 24 hr 05/09/21 17:18 Temperature 36.3 C L Heart Rate 115 H Respiratory 20 Rate Blood Pressure 147/81 H O2 Saturation 96 Oxygen O2 Source Room air PD MEDICAL DECISION MAKING - ED course ED course: States this is an exacerbation of PMR, but steroids have not worked for her in the past and as such just request something for pain. Departure - Departure Disposition: 01 Home, Self Care Clinical Impression: Polymyalgia rheumatica, Shoulder pain, left Condition: Good Record reviewed to determine appropriate education?: Yes Instructions: ED Shoulder Pain [facility] Prescriptions: HYDROcod/ACETAM 5/325 [[place] 5/325] 1 - 2 tab PO Q6H PRN #20 tablet PRN Reason: Pain Comments: Prescription sent electronically to [facility] in [place]. Follow-up with your natural sciences department chair when able. Return for new or worsening symptoms. As discussed wear the sling for no more than 3 days. I am prescribing a short course of narcotic pain medication for you. These are potentially dangerous and addictive medications that should be used carefully. These medications may constipate you. Take an kevo-few-lefxiaz stool softener (docusate) twice daily with plenty of water while taking these medications. If you go 24 hours without a bowel movement, take qjyy-dmx-[id number] miralax, per package instructions. Do not drink or drive while taking these medications. If you received narcotic or sedating medications while in the emergency department, do not drive for 24 hours. Store this medication in a safe, secure place and out of reach of children. It is a violation of federal law to give or sell this medication to another person or to use in a manner other than prescribed. The ED will not refill narcotic prescriptions, including prescriptions lost or stolen. To dispose of unwanted medications: 1. [facility] at [address] in [place] has a medication drop box. They accept prescription medications (in pill form) Sunday through Sunday 9:00 a.m. to 5:00 p.m. 2. The [facility] accepts prescription medications (in pill form only) for disposal year round. Call for more information. 3. Contact the [facility] for the next [facility] sponsored prescription drug collection event. , [phone], or x9345; Note that many narcotic pain relievers also contain Tylenol/acetaminophen. Please ensure that your total dose of acetaminophen from all sources does not exceed 3 g (3000 mg) per day. Discharge Date/Time: 05/09/21 17:59
== END 2021-05-09 17:59 | disposition home or self-care (01) ==
LOC: ED 17:02
DX: M25.512 Pain in left shoulder (principal); M35.3 Polymyalgia rheumatica; F17.200 Nicotine dependence, unspecified, uncomplicated
CPT/HCPCS: 96372; 99283; J1170

== ENCOUNTER 2021-05-24 13:52 | Emergency (ER) | payer MEDICARE, OTHER ==
[2021-05-24 14:04] VITALS: BP 168/97
[2021-05-24] MEDS ORDERED: oxyCODONE 5 MG TABLET PO STA (14:39)
--- NOTE | 2021-05-24 14:43 | ED Physician Documentation ---
History of Present Illness - Stated complaint Stated Complaint: LT SHOULDER PAIN - Chief complaint Chief Complaint: Ext Problem - History obtained from History obtained from: Patient - History of Present Illness Timing: Today Pain level max: 8 Pain level now: 8 - Additonal information Additional information: 70-year-old female presents to the emergency department complaining of left shoulder pain. Ongoing for the past month. She states this is similar to her flares of polymyalgia rheumatica in the past. She was seen here 2 weeks ago and given Vicodin. She states that the pain medication helped, but she is now out of her pain medication. She states that her primary care provider states that they will not prescribe any narcotics to patients anymore. 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 She states she has a referral to the pain clinic for next week. Worse with movement, better with rest. 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 : None HEENT: Chronic hearing loss Psych: None Musculoskeletal: None Derm: None - Past Surgical History Past Surgical History: Yes General: Cholecystectomy, Appendectomy /TRAVELING PLANT OPERATOR: Hysterectomy, Mastectomy - Present Medications Home Medications: Ambulatory Orders Medication Instructions Recorded Confirmed Acetaminophen 650 mg ORAL Q6HR PRN 03/23/18 08/09/20 Albuterol Sulf [Ventolin Hfa 90 mcg INH Q6H PRN 03/23/18 08/09/20 Inhaler] Alprazolam [Xanax] 1 mg ORAL DAILY 03/23/18 08/09/20 Fluticasone [Flonase] 50 mcg INH PRN PRN 03/23/18 08/09/20 QUEtiapine [SEROquel] 1 tab ORAL DAILY 03/23/18 08/09/20 Sertraline HCl [Zoloft] 200 mg ORAL DAILY 03/23/18 08/09/20 Tiotropium [place] [Spiriva] 1 cap ORAL DAILY 03/23/18 08/09/20 diphenhydrAMINE [Benadryl] 25 mg ORAL Q6H PRN 03/23/18 08/09/20 guaiFENesin/DEXTROMETHORPHAN 10 ml PO Q6H PRN #120 ml 03/23/18 08/09/20 [Robitussin Dm] Quetiapine Fumarate [Seroquel] 50 mg PO DAILY 05/27/18 08/09/20 Sertraline HCl [Zoloft] 2 tab PO DAILY 05/27/18 08/09/20 Tiotropium [place] [Spiriva] 18 mcg IH BID 05/27/18 08/09/20 Anastrozole [Arimidex] 1 mg PO DAILY #90 tab 01/28/20 08/09/20 predniSONE [Deltasone] 10 mg PO [id number] #42 tab 01/31/20 08/09/20 HYDROcod/ACETAM 5/325 [[place] 5/325] 1 - 2 tab PO Q6H PRN #20 tablet 05/09/21 Oxycodone HCl/Acetaminophen 1 - 2 each PO Q6H PRN #20 tablet 05/24/21 [Percocet 5-325 mg Tablet] - Allergies Allergies/Adverse Reactions: Allergies Allergy/AdvReac Type Severity Reaction Status Date / Time No Known Drug Allergies Allergy Verified 05/24/21 14:04 - Social History Does the pt smoke?: Yes Smoking Status: Current every day smoker Does the pt drink ETOH?: No Does the pt have substance abuse?: No - Immunizations Immunizations are current?: Yes - POLST Patient has POLST: No PD ED PE NORMAL - Vitals Vital signs reviewed: Yes - General General: Alert and oriented X 3, No acute distress - HEENT HEENT: Moist mucous membranes - Neck Neck: Supple, no meningeal sign - Cardiac Cardiac: RRR - Respiratory Respiratory: No respiratory distress, Clear bilaterally - Abdomen Abdomen: Soft, Non tender, Non distended - Derm Derm: Warm and dry - Extremities Extremities: Other (Pain with range of motion of the shoulders, however is able to move them during the interview portion. There is limited range of motion secondary to pain) - Neuro Neuro: Alert and oriented X 3 Results - Vitals Vitals: Vital Signs - 24 hr 05/24/21 13:56 Temperature 36.4 C L Heart Rate 114 H Respiratory 26 H Rate Blood Pressure 168/97 H O2 Saturation 97 Oxygen O2 Source Room air PD MEDICAL DECISION MAKING - ED course Complexity details: considered differential, d/w patient ED course: Patient states that she has a flare of her polymyalgia rheumatica. She is out of her pain medication and is awaiting a referral to pain management in [place]. Will prescribe a small amount of pain medication and have her follow-up with her doctor. I am prescribing a short course of short-acting opioid pain medication for this patient. 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 I have discussed that the opioids are for short term therapy only, and will not be refilled from the ED. patient counseled regarding signs and symptoms for which I believe and urgent re-evaluation would be necessary. Patient with good understanding of and agreement to plan and is comfortable going home at this time This document was made in part using voice recognition software. While efforts are made to proofread this document, sound alike and grammatical errors may occur. Departure - Departure Disposition: 01 Home, Self Care Clinical Impression: Polymyalgia rheumatica Condition: Good Instructions: Understanding Polymyalgia Rheumatica Follow-Up: Rochelle Parker ARNP [Primary Care Provider] - Within 1 week Prescriptions: Oxycodone HCl/Acetaminophen [Percocet 5-325 mg Tablet] 1 - 2 each PO Q6H PRN #20 tablet PRN Reason: pain Comments: A prescription was sent to [facility] in [place]. Please follow-up with your doctor for further care. I am prescribing a short course of narcotic pain medication for you. These are potentially dangerous and addictive medications that should be used carefully. These medications may constipate you. Take an gllg-yre-rmdfwoj stool softener (docusate) twice daily with plenty of water while taking these medications. If you go 24 hours without a bowel movement, take oquz-nxn-rkgcbnh miralax, per package instructions. Do not drink or drive while taking these medications. If you received narcotic or sedating medications while in the emergency department, do not drive for 24 hours. Store this medication in a safe, secure place and out of reach of children. It is a violation of federal law to give or sell this medication to another person or to use in a manner other than prescribed. The ED will not refill narcotic prescriptions, including prescriptions lost or stolen. To dispose of unwanted medications: 1. [facility] at [address] in [place] has a medication drop box. They accept prescription medications (in pill form) Sunday through Sunday 9:00 a.m. to 5:00 p.m. 2. The [facility] accepts prescription medications (in pill form only) for disposal year round. Call for more information. 3. Contact the [facility] for the next [facility] sponsored prescription drug collection event. , [phone], or [phone]; Discharge Date/Time: 05/24/21 15:00
== END 2021-05-24 15:00 | disposition home or self-care (01) ==
LOC: ED 13:52
DX: M35.3 Polymyalgia rheumatica (principal); F17.200 Nicotine dependence, unspecified, uncomplicated
CPT/HCPCS: 99282; 99283; A9270

== ENCOUNTER 2021-07-11 06:46 | Outpatient (CLI) | payer MEDICARE, OTHER | END 2021-07-11 06:47 | disposition EMS.NT | LOC: EMS 06:46 | DX: F41.9 Anxiety disorder, unspecified (principal) ==

== ENCOUNTER 2021-07-11 17:07 | Outpatient (CLI) | payer MEDICARE, OTHER | END 2021-07-11 17:08 | disposition short-term general hospital (02) | LOC: EMS 17:07 | DX: R06.02 Shortness of breath (principal); F17.210 Nicotine dependence, cigarettes, uncomplicated | CPT/HCPCS: A0425; A0429; A0888 ==

== ENCOUNTER 2021-07-22 09:17 | Outpatient (CLI) | payer MEDICARE, OTHER ==
--- NOTE | 2021-07-22 14:00 | Nuclear Medicine Report ---
PROCEDURE: Bone Whole Body INDICATIONS: BREAST CA RADIOPHARMACEUTICAL: 26.9 mCi Tc-99m MDP IV. TECHNIQUE: Delayed whole-body scintigrams were obtained approximately 3-4 hours after intravenous injection of r adiotracer. Anterior and posterior views were acquired from vertex to feet. Additional left and rig ht oblique views of the skull and cervical spine were obtained. COMPARISON: None available. FINDINGS: No lesions are identified in skull, sternum, scapulae, ribs, bony pelvis, and visualized s hafts of the long bones. There are foci of mildly increased uptake in thoracic spine and lumbar spine , most likely degenerative in nature. Early metastasis could be obscured. There are foci of increased periarticular activity involving shoulders bilaterally, wrists and hands bilaterally, knees bilatera lly, ankles and feet bilaterally, consistent with degenerative and arthritic changes. There is intens e uptake in the left humeral head. IMPRESSION: 1. No definitive scintigraphic findings to suggest osseous metastasis. 2. Intense uptake in the left humeral head. The scintigraphic finding is nonspecific and could be due to trauma or severe significant disease. Recommend clinical and radiographic correlation. Reviewed by: Padma Ibrahim MD on 07/22/2021 1:58 PM PDT Approved by: Padma Ibrahim MD on 07/22/2021 1:58 PM PDT Station ID: [id number]
== END 2021-07-22 09:18 | disposition home or self-care (01) ==
LOC: DI 09:17
PROVIDERS: ATTEND Nurse Practitioner
DX: C50.919 Malignant neoplasm of unspecified site of unspecified female breast (principal)
CPT/HCPCS: 78306

== ENCOUNTER 2021-08-15 15:01 | Outpatient (CLI) | payer MEDICARE, OTHER ==
[2021-08-15 18:21] LABS: ALBUMIN 3.8 g/dL (3.2-5.5); BILIRUBIN,TOTAL 0.4 mg/dL (0.2-1.0); CALCIUM 9.5 mg/dL (8.5-10.3); CREATININE 0.8 mg/dL (0.4-1.0); TOTAL PROTEIN 7.8 g/dL (6.7-8.2)
[2021-08-15 18:23] LABS: BASOPHILS % (AUTO) 0.3 %; EOSINOPHILS # (AUTO) 0.2 10^3/uL (0.0-0.7); EOSINOPHILS % (AUTO) 1.6 %; HCT - HEMATOCRIT 41.7 % (37.0-47.0); HGB - HEMOGLOBIN 13.6 g/dL (12.0-16.0); LYMPHOCYTES # (AUTO) 2.4 10^3/uL (1.5-3.5); MEAN CORPUSCULAR HEMOGLOBIN 30.1 pg (27.0-31.0); MEAN CORPUSCULAR HGB CONC 32.6 g/dL (32.0-36.0); MEAN CORPUSCULAR VOLUME 92.3 fL (81.0-99.0); MEAN PLATELET VOLUME 10.8 fL (7.9-10.8); MONOCYTES # (AUTO) 0.8 10^3/uL (0.0-1.0); MONOCYTES % (AUTO) 8.6 %; NEUTROPHILS # (AUTO) 5.9 10^3/uL (1.5-6.6); NEUTROPHILS % (AUTO) 63.2 %; PLT - PLATELET COUNT 264 10^3/uL (130-450); RED BLOOD COUNT 4.52 10^6/uL (4.20-5.40); RED CELL DISTRIBUTION WIDTH 13.7 % (12.0-15.0); WHITE BLOOD COUNT 9.3 x10^3/uL (4.8-10.8)
== END 2021-08-15 15:02 | disposition home or self-care (01) ==
LOC: LAB.N 15:01
PROVIDERS: ATTEND Internal Medicine Cardiovascular Disease
DX: I10 Essential (primary) hypertension (principal)
CPT/HCPCS: 36415; 80053; 85025

== ENCOUNTER 2021-08-28 08:00 | Outpatient (CLI) | payer MEDICARE, OTHER ==
[2021-08-29 11:15] LABS: BACTERIAL VAGINOSIS DNA POSITIVE (NEGATIVE); CANDIDA GLABRATA DNA NEGATIVE (NEGATIVE); CANDIDA GROUP DNA POSITIVE (NEGATIVE); CANDIDA KRUSEI DNA NEGATIVE (NEGATIVE); TRICHOMONAS VAGINALIS DNA NEGATIVE (NEGATIVE)
== END 2021-08-28 08:01 | disposition home or self-care (01) ==
LOC: LAB.N 08:00
PROVIDERS: ATTEND Physician Assistant
DX: R30.0 Dysuria (principal); N76.0 Acute vaginitis
CPT/HCPCS: 81514; 87086

== ENCOUNTER 2021-10-25 20:00 | Emergency (ER) | payer MEDICARE, OTHER ==
--- OUTSIDE RECORDS SUMMARY | 2021-10-25 20:42 | EXTERNAL MEDICAL SUMMARY RPT | Continuity of Care Document ---
:1950 Author Organization [place] Address [address] [place] [address] Phone Allergies No information. Encounters No information. Functional Status No information. Immunizations No information. Medications No information. Problems No information. Procedures No information. Results/Labs test date author facility value unit interpret ation Result panel 1 (unknown) (no date) (unknown) (unknown) 0 /uL (unkn own) (unknown) (no date) (unknown) (unknown) 0.4 % (unkn own) (unknown) (no date) (unknown) (unknown) 1.9 % (unkn own) (unknown) (no date) (unknown) (unknown) 13.1 g/dL (unkn own) (unknown) (no date) (unknown) (unknown) 14.4 % (unkn own) (unknown) (no date) (unknown) (unknown) 1600 /uL (unkn own) (unknown) (no date) (unknown) (unknown) 20.2 % (unkn own) (unknown) (no date) (unknown) (unknown) 200 /uL (unkn own) (unknown) (no date) (unknown) (unknown) 278 X10 3/uL (unkn own) (unknown) (no date) (unknown) (unknown) 30.2 PG (unkn own) (unknown) (no date) (unknown) (unknown) 33.2 % (unkn own) (unknown) (no date) (unknown) (unknown) 39.5 % (unkn own) (unknown) (no date) (unknown) (unknown) 4.35 X10 6/uL (unkn own) (unknown) (no date) (unknown) (unknown) 500 /uL (unkn own) (unknown) (no date) (unknown) (unknown) 5500 /uL (unkn own) (unknown) (no date) (unknown) (unknown) 6.7 % (unkn own) (unknown) (no date) (unknown) (unknown) 7.8 X10 3/uL (unkn own) (unknown) (no date) (unknown) (unknown) 70.8 % (unkn own) (unknown) (no date) (unknown) (unknown) 90.9 fL (unkn own) Result panel 2 (unknown) (no date) (unknown) (unknown) > 60.0 mL/min (unkn own) (unknown) (no date) (unknown) (unknown) 0.5 mg/dL (unkn own) (unknown) (no date) (unknown) (unknown) 0.53 mg/dL (unkn own) (unknown) (no date) (unknown) (unknown) 1.3 (units unknown) (unknown) (unknown) (no date) (unknown) (unknown) 116 U/L (unkn own) (unknown) (no date) (unknown) (unknown) 138 mmol/L (unkn own) (unknown) (no date) (unknown) (unknown) 14 mg/dL (unkn own) (unknown) (no date) (unknown) (unknown) 26.4 (units unknown) (unknown) (unknown) (no date) (unknown) (unknown) 3.2 g/dL (unkn own) (unknown) (no date) (unknown) (unknown) 3.9 mmol/L (unkn own) (unknown) (no date) (unknown) (unknown) 302 mg/dL (unkn own) (unknown) (no date) (unknown) (unknown) 32 mmol/L (unkn own) (unknown) (no date) (unknown) (unknown) 4.0 g/dL (unkn own) (unknown) (no date) (unknown) (unknown) 43 IU/L (unkn own) (unknown) (no date) (unknown) (unknown) 57 IU/L (unkn own) (unknown) (no date) (unknown) (unknown) 7.2 g/dL (unkn own) (unknown) (no date) (unknown) (unknown) 9.7 mg/dL (unkn own) (unknown) (no date) (unknown) (unknown) 98 mmol/L (unkn own) Result panel 3 (unknown) (no (unknown) (unknown) (no value) (units (unk nown) date) unknown) (unknown) (no (unknown) (unknown) Date of Service: (units (unknown) date) 07/27/21 unknown) (unknown) (no (unknown) (unknown) (no value) (units (unk nown) date) unknown) (unknown) (no (unknown) (unknown) Allergies (units (unkn own) date) unknown) (unknown) (no (unknown) (unknown) Home Medications (units (unknown) date) unknown) (unknown) (no (unknown) (unknown) Intake and Output (units (unknown) date) unknown) (unknown) (no (unknown) (unknown) [facility] (units (unknown) date) [address] unknown) [place] [address] (unknown) (no (unknown) (unknown) Laboratory Last (units (unknown) date) Values unknown) (unknown) (no (unknown) (unknown) Oncology Progress (units (unknown) date) Note unknown) (unknown) (no (unknown) (unknown) Patient Weight (units (unknown) date) unknown) (unknown) (no (unknown) (unknown) Vital Signs (units (un known) date) unknown) (unknown) (no (unknown) (unknown) (no value) (units (unk nown) date) unknown) (unknown) (no (unknown) (unknown) Temp Pulse Resp BP (units (unknown) date) Pulse Ox unknown) (unknown) (no (unknown) (unknown) Weight 128.5 kg (units (unknown) date) unknown) (unknown) (no (unknown) (unknown) 07/26/21 07/27/21 (units (unknown) date) 07/27/21 unknown) (unknown) (no (unknown) (unknown) 07/27/21 (units (unkno wn) date) unknown) (unknown) (no (unknown) (unknown) 07/27/21 10:57 (units (unknown) date) 98.4 F 105 H 16 unknown) 129/85 97 (unknown) (no (unknown) (unknown) 23:59 (units (unkno wn) date) unknown) (unknown) (no (unknown) (unknown) 23:59 07:59 15:59 (units (unknown) date) unknown) (unknown) (no (unknown) (unknown) Medication (units (unk nown) date) Instructions unknown) Recorded Confirmed Type (unknown) (no (unknown) (unknown) (1) Breast cancer (units (unknown) date) unknown) (unknown) (no (unknown) (unknown) - Date of Visit (units (unknown) date) unknown) (unknown) (no (unknown) (unknown) - Labs (units (unkno wn) date) unknown) (unknown) (no (unknown) (unknown) - Patient (units (unkn own) date) Self-Reported unknown) Symptoms (unknown) (no (unknown) (unknown) 6 months, (units (unkn own) date) surveillance CTs unknown) due to high risk smoking history. (unknown) (no (unknown) (unknown) 6101 (units (unkno wn) date) unknown) (unknown) (no (unknown) (unknown) ALT 57 IU/L (<35) (units (unknown) date) H 07/27/21 09:40 unknown) (unknown) (no (unknown) (unknown) AST 43 IU/L (units (u nknown) date) (14-36) H unknown) 07/27/21 09:40 (unknown) (no (unknown) (unknown) Age/Sex: 70 / F (units (unknown) date) unknown) (unknown) (no (unknown) (unknown) Albumin 4.0 g/dL (units (unknown) date) (3.5-5.0) unknown) 07/27/21 09:40 (unknown) (no (unknown) (unknown) Albumin/Globulin (units (unknown) date) Ratio 1.3 unknown) (1.0-2.8) 07/27/21 09:40 (unknown) (no (unknown) (unknown) Alkaline (units (unkno wn) date) Phosphatase 116 unknown) U/L (38-126) 07/27/21 09:40 (unknown) (no (unknown) (unknown) Allergy/AdvReac (units (unknown) date) Type Severity unknown) Reaction Status Date / Time (unknown) (no (unknown) (unknown) Assessment and (units (unknown) date) Plan unknown) (unknown) (no (unknown) (unknown) BUN 14 mg/dL (units ( unknown) date) (7-17) 07/27/21 unknown) 09:40 (unknown) (no (unknown) (unknown) BUN/Creatinine (units (unknown) date) Ratio 26.4 (6-22) unknown) H 07/27/21 09:40 (unknown) (no (unknown) (unknown) Baso # (Auto) 0 (units (unknown) date) /uL (0-100) unknown) 07/27/21 09:40 (unknown) (no (unknown) (unknown) Baso % (Auto) 0.4 (units (unknown) date) % (0-2) 07/27/21 unknown) 09:40 (unknown) (no (unknown) (unknown) CA 15-3 Antigen (units (unknown) date) 13.1 U/mL unknown) (0.0-25.0) 12/29/20 16:51 (unknown) (no (unknown) (unknown) CA 27-29 18.9 (units (unknown) date) U/mL (0.0-38.6) unknown) 12/29/20 16:51 (unknown) (no (unknown) (unknown) Calcium 9.7 mg/dL (units (unknown) date) (8.4-10.2) unknown) 07/27/21 09:40 (unknown) (no (unknown) (unknown) Carbon Dioxide 32 (units (unknown) date) mmol/L (22-32) unknown) 07/27/21 09:40 (unknown) (no (unknown) (unknown) Chief Complaint: (units (unknown) date) f/u breast cancer unknown) (unknown) (no (unknown) (unknown) Chloride 98 (units (u nknown) date) mmol/L (98-107) unknown) 07/27/21 09:40 (unknown) (no (unknown) (unknown) Continue (units (unkno wn) date) anastrazole unknown) (unknown) (no (unknown) (unknown) Creatinine 0.53 (units (unknown) date) mg/dL (0.52-1.04) unknown) 07/27/21 09:40 (unknown) (no (unknown) (unknown) : 1950 (units (unknown) date) Acct:[id number] unknown) (unknown) (no (unknown) (unknown) Date of visit: (units (unknown) date) 07/27/21 unknown) (unknown) (no (unknown) (unknown) Eos # (Auto) 200 (units (unknown) date) /uL (0-450) unknown) 07/27/21 09:40 (unknown) (no (unknown) (unknown) Eos % (Auto) 1.9 (units (unknown) date) % (2-4) L unknown) 07/27/21 09:40 (unknown) (no (unknown) (unknown) Estimated GFR > (units (unknown) date) 60.0 mL/min (>60) unknown) 07/27/21 09:40 (unknown) (no (unknown) (unknown) Exam (units (unkno wn) date) unknown) (unknown) (no (unknown) (unknown) GenericComposite[P (units (unknown) date) lt Count 278 unknown) X10^3/uL (150-400) 07/27/21 09:40 ] (unknown) (no (unknown) (unknown) GenericComposite[R (units (unknown) date) BC 4.35 X10^6/uL unknown) (4.0-5.2) 07/27/21 09:40 ] (unknown) (no (unknown) (unknown) GenericComposite[W (units (unknown) date) BC 7.8 X10^3/uL unknown) (4.5-11.0) 07/27/21 09:40 ] (unknown) (no (unknown) (unknown) Globulin 3.2 g/dL (units (unknown) date) (1.7-4.1) unknown) 07/27/21 09:40 (unknown) (no (unknown) (unknown) Glucose 302 mg/dL (units (unknown) date) (80-110) H unknown) 07/27/21 09:40 (unknown) (no (unknown) (unknown) Hct 39.5 % (units (un known) date) (36-46) 07/27/21 unknown) 09:40 (unknown) (no (unknown) (unknown) Hgb 13.1 g/dL (units (unknown) date) (12.0-16.0) unknown) 07/27/21 09:40 (unknown) (no (unknown) (unknown) History (units (unkno wn) date) unknown) (unknown) (no (unknown) (unknown) Home Medications (units (unknown) date) and Allergies unknown) (unknown) (no (unknown) (unknown) Interval history: (units (unknown) date) unknown) (unknown) (no (unknown) (unknown) [place] however (units (unknown) date) wishes to transfer unknown) care to the [facility]. At this (unknown) (no (unknown) (unknown) Left shouldre (units ( unknown) date) biopsy shows no unknown) evidence of cancer. Recent bone scan was neagtive (unknown) (no (unknown) (unknown) Lymph # (Auto) (units (unknown) date) 1600 /uL unknown) ([id number]) 07/27/21 09:40 (unknown) (no (unknown) (unknown) Lymph % (Auto) (units (unknown) date) 20.2 % (25-40) L unknown) 07/27/21 09:40 (unknown) (no (unknown) (unknown) MCH 30.2 PG (units (u nknown) date) (26-34) 07/27/21 unknown) 09:40 (unknown) (no (unknown) (unknown) MCHC 33.2 % (units (u nknown) date) (30-36) 07/27/21 unknown) 09:40 (unknown) (no (unknown) (unknown) MCV 90.9 fL (units (u nknown) date) (80-100) 07/27/21 unknown) 09:40 (unknown) (no (unknown) (unknown) [place] # (Auto) 500 (units (unknown) date) /uL (0-900) unknown) 07/27/21 09:40 (unknown) (no (unknown) (unknown) [place] % (Auto) 6.7 (units (unknown) date) % (3-14) 07/27/21 unknown) 09:40 (unknown) (no (unknown) (unknown) Neut # (Auto) (units ( unknown) date) 5500 /uL unknown) ([id number]) 07/27/21 09:40 (unknown) (no (unknown) (unknown) Neut % (Auto) (units ( unknown) date) 70.8 % (50-75) unknown) 07/27/21 09:40 (unknown) (no (unknown) (unknown) No Known Drug (units ( unknown) date) Allergies Allergy unknown) Verified 07/11/21 17:53 (unknown) (no (unknown) (unknown) Other: (units (unkno wn) date) unknown) (unknown) (no (unknown) (unknown) PN -Subjective (units (unknown) date) unknown) (unknown) (no (unknown) (unknown) Patient: (units (unkno wn) date) Mary Kate Kaiser unknown) MR#: [id number] (unknown) (no (unknown) (unknown) Plan (units (unkno wn) date) unknown) (unknown) (no (unknown) (unknown) Potassium 3.9 (units (unknown) date) mmol/L (3.4-5.1) unknown) 07/27/21 09:40 (unknown) (no (unknown) (unknown) Provider: (units (unkn own) date) Emmett Early MD unknown) (unknown) (no (unknown) (unknown) RDW 14.4 % (units (un known) date) (11.6-14.8) unknown) 07/27/21 09:40 (unknown) (no (unknown) (unknown) Recent tumor (units (u nknown) date) markers are unknown) negative and her cbc is normal. (unknown) (no (unknown) (unknown) Results (units (unkno wn) date) unknown) (unknown) (no (unknown) (unknown) SR Cardiovascular (units (unknown) date) issues: Shortness unknown) of breath with activity or lying flat (unknown) (no (unknown) (unknown) SR Constitution: (units (unknown) date) Fatigue/Malaise unknown) (unknown) (no (unknown) (unknown) SR Endocrine (units (u nknown) date) issues: Heat unknown) intolerance (unknown) (no (unknown) (unknown) SR (units (unkno wn) date) Gastrointestinal unknown) issues: Nausea (unknown) (no (unknown) (unknown) SR Musculoskeletal (units (unknown) date) issues: Joint pain unknown) or swelling, Muscle weakness, Bone pain (unknown) (no (unknown) (unknown) SR Neuro issues: (units (unknown) date) Headache, unknown) Difficulty balancing (unknown) (no (unknown) (unknown) SR ears, nose, (units (unknown) date) mouth, throat unknown) issues: Swollen glands (unknown) (no (unknown) (unknown) SR respiratory (units (unknown) date) issues: Shortness unknown) of breath (unknown) (no (unknown) (unknown) She did have (units (u nknown) date) biopsy of her left unknown) shoulder with Dr Gannon with no evidence of (unknown) (no (unknown) (unknown) She was also (units (u nknown) date) diagnosed with CHF unknown) after presenting to ER with orthopnea and is (unknown) (no (unknown) (unknown) Signed By: (units (unk nown) date) unknown) (unknown) (no (unknown) (unknown) Sodium 138 mmol/L (units (unknown) date) (137-145) unknown) 07/27/21 09:40 (unknown) (no (unknown) (unknown) Status: Acute (units ( unknown) date) unknown) (unknown) (no (unknown) (unknown) This is a (units (unkn own) date) 70-year-old female unknown) with a history of stage II breast cancer diagnosed (unknown) (no (unknown) (unknown) Total Bilirubin (units (unknown) date) 0.5 mg/dL (0.2-1.3) unknown) 07/27/21 09:40 (unknown) (no (unknown) (unknown) Total Protein 7.2 (units (unknown) date) g/dL (6.3-8.2) unknown) 07/27/21 09:40 (unknown) (no (unknown) (unknown) Vital signs: (units (u nknown) date) unknown) (unknown) (no (unknown) (unknown) Weight 128.5 kg (units (unknown) date) unknown) (unknown) (no (unknown) (unknown) Who was diagnosed (units (unknown) date) with stage II unknown) right-sided breast cancer in September of 2016. She (unknown) (no (unknown) (unknown) Zometa today and q (units (unknown) date) 6 months. unknown) (unknown) (no (unknown) (unknown) aerosol inhaler (units (unknown) date) (Ventolin HFA) unknown) (unknown) (no (unknown) (unknown) albuterol sulfate (units (unknown) date) 90 mcg/actuation 2 unknown) puff INHALATION Q6H PRN 12/29/20 12/29/20 (unknown) (no (unknown) (unknown) alprazolam 1 mg (units (unknown) date) tablet mg 07/11/21 unknown) History (unknown) (no (unknown) (unknown) anastrozole 1 mg (units (unknown) date) tablet 1 mg PO unknown) DAILY 12/29/20 12/29/20 History (unknown) (no (unknown) (unknown) anastrozole in (units (unknown) date) October of 2016. With unknown) regard to osteoporosis she is on calcium and (unknown) (no (unknown) (unknown) bupropion HCl 100 (units (unknown) date) mg tablet 300 mg PO unknown) DAILY 06/15/21 06/15/21 History (unknown) (no (unknown) (unknown) cancer. She will (units (unknown) date) see another unknown) orthopedist for further managment of shoulder pain. (unknown) (no (unknown) (unknown) did not receive (units (unknown) date) adjuvant radiation unknown) or chemotherapy while she was being treated (unknown) (no (unknown) (unknown) every 6 months. (units (unknown) date) She has a 50 unknown) pack-year smoking history and has had yearly CT (unknown) (no (unknown) (unknown) evidence of cancer (units (unknown) date) on biopsy. I will unknown) see her back in 6 months. Will help her (unknown) (no (unknown) (unknown) except for left (units (unknown) date) shoulder/humerus. unknown) Further workup per ortho since there was no (unknown) (no (unknown) (unknown) expedite referral (units (unknown) date) to Cardiology for unknown) new dx of CHF. (unknown) (no (unknown) (unknown) fluticasone (units (un known) date) propionate 50 2 unknown) spray INTRANASAL DAILY 12/29/20 12/29/20 History (unknown) (no (unknown) (unknown) for Zometa for (units (unknown) date) bone health. unknown) (unknown) (no (unknown) (unknown) furosemide 40 mg (units (unknown) date) tablet (Lasix) 40 unknown) mg PO DAILY #5 tab 03/14/22 Rx (unknown) (no (unknown) (unknown) in September of 2016. (units (unknown) date) The breast cancer unknown) was ER 100% positive and HER2 negative. She (unknown) (no (unknown) (unknown) in [place]. (units (unknown) date) However she has unknown) been on anastrozole since October 2016. The (unknown) (no (unknown) (unknown) mammogram (units (unkn own) date) screening, unknown) continuation of anastrozole 1 mg daily, Prolia 60 mg every (unknown) (no (unknown) (unknown) mcg/actuation (units ( unknown) date) nasal unknown) (unknown) (no (unknown) (unknown) mg tablet (units (unkn own) date) (Percocet) unknown) (unknown) (no (unknown) (unknown) nnlupe Kaiser is a (units (unknown) date) 70 year old female unknown) (unknown) (no (unknown) (unknown) of adjuvant (units (un known) date) treatments. She unknown) was previously seen by Dr. Araya being on [facility] (unknown) (no (unknown) (unknown) oxycodone-acetamin (units (unknown) date) ophen 10 mg-325 1 unknown) tab PO 5XD 06/15/21 06/15/21 History (unknown) (no (unknown) (unknown) plan is to (units (unk nown) date) continue unknown) anastrozole for 10 years since she has not had other forms (unknown) (no (unknown) (unknown) point in time will (units (unknown) date) proceed with unknown) routine surveillance including right-sided (unknown) (no (unknown) (unknown) positive lymph (units (unknown) date) nodes. She did not unknown) receive adjuvant radiation or chemotherapy (unknown) (no (unknown) (unknown) previously seen by (units (unknown) date) Dr. Araya an on unknown) [facility] [place] however she wishes to (unknown) (no (unknown) (unknown) quetiapine 25 mg (units (unknown) date) tablet 25 mg PO unknown) DAILY 12/29/20 12/29/20 History (unknown) (no (unknown) (unknown) quetiapine 25 mg (units (unknown) date) tablet 50 mg PO unknown) BEDTIME 12/29/20 12/29/20 History (unknown) (no (unknown) (unknown) referral to (units (un known) date) cardiology unknown) (unknown) (no (unknown) (unknown) spray,suspension (units (unknown) date) unknown) (unknown) (no (unknown) (unknown) surveillance (units (u nknown) date) studies the latest unknown) was which was July of 2019. The patient was (unknown) (no (unknown) (unknown) tiotropium bromide (units (unknown) date) 18 mcg capsule 1 unknown) cap INHALATION DAILY 12/29/20 12/29/20 (unknown) (no (unknown) (unknown) transfer care to (units (unknown) date) and [place] for unknown) logistical reasons. 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 She continues on AI therapy and is here (unknown) (no (unknown) (unknown) turmeric 400 mg (units (unknown) date) capsule mg PO unknown) 12/29/20 History (unknown) (no (unknown) (unknown) underwent (units (unkn own) date) right-sided breast unknown) mastectomy with tumor size of 2.1 cm and 05/15 (unknown) (no (unknown) (unknown) vitamin-D (units (unkno wn) date) supplements and has unknown) been on Prolia which was started in [place] (unknown) (no (unknown) (unknown) was T2 N1 M0, ER (units (unknown) date) 100%, NM 21%, HER2 unknown) negative, Oncotype Pauline DX equal 20. She (unknown) (no (unknown) (unknown) which is while she (units (unknown) date) was being treated unknown) in [place]. She was started on (unknown) (no (unknown) (unknown) with HandiHaler) (units (unknown) date) unknown) (unknown) (no (unknown) (unknown) with inhalation (units (unknown) date) device (Spiriva unknown) Result panel 4 (unknown) (no (unknown) (unknown) (no value) (units (unk nown) date) unknown) (unknown) (no (unknown) (unknown) Date of Service: (units (unknown) date) 07/27/21 unknown) (unknown) (no (unknown) (unknown) (no value) (units (unk nown) date) unknown) (unknown) (no (unknown) (unknown) Allergies (units (unkn own) date) unknown) (unknown) (no (unknown) (unknown) Home Medications (units (unknown) date) unknown) (unknown) (no (unknown) (unknown) Intake and Output (units (unknown) date) unknown) (unknown) (no (unknown) (unknown) [facility] (units (unknown) date) [address] unknown) [place] [address] (unknown) (no (unknown) (unknown) Laboratory Last (units (unknown) date) Values unknown) (unknown) (no (unknown) (unknown) Oncology Progress (units (unknown) date) Note unknown) (unknown) (no (unknown) (unknown) Patient Weight (units (unknown) date) unknown) (unknown) (no (unknown) (unknown) Vital Signs (units (un known) date) unknown) (unknown) (no (unknown) (unknown) (no value) (units (unk nown) date) unknown) (unknown) (no (unknown) (unknown) Temp Pulse Resp BP (units (unknown) date) Pulse Ox unknown) (unknown) (no (unknown) (unknown) Weight 128.5 kg (units (unknown) date) unknown) (unknown) (no (unknown) (unknown) 07/26/21 07/27/21 (units (unknown) date) 07/27/21 unknown) (unknown) (no (unknown) (unknown) 07/27/21 (units (unkno wn) date) unknown) (unknown) (no (unknown) (unknown) 07/27/21 10:57 (units (unknown) date) 98.4 F 105 H 16 unknown) 129/85 97 (unknown) (no (unknown) (unknown) 23:59 (units (unkno wn) date) unknown) (unknown) (no (unknown) (unknown) 23:59 07:59 15:59 (units (unknown) date) unknown) (unknown) (no (unknown) (unknown) Medication (units (unk nown) date) Instructions unknown) Recorded Confirmed Type (unknown) (no (unknown) (unknown) (1) Breast cancer (units (unknown) date) unknown) (unknown) (no (unknown) (unknown) - Date of Visit (units (unknown) date) unknown) (unknown) (no (unknown) (unknown) - Labs (units (unkno wn) date) unknown) (unknown) (no (unknown) (unknown) - Patient (units (unkn own) date) Self-Reported unknown) Symptoms (unknown) (no (unknown) (unknown) 6 months, (units (unkn own) date) surveillance CTs unknown) due to high risk smoking history. (unknown) (no (unknown) (unknown) 6101 (units (unkno wn) date) unknown) (unknown) (no (unknown) (unknown) ALT 57 IU/L (<35) (units (unknown) date) H 07/27/21 09:40 unknown) (unknown) (no (unknown) (unknown) AST 43 IU/L (units (u nknown) date) (14-36) H unknown) 07/27/21 09:40 (unknown) (no (unknown) (unknown) Age/Sex: 70 / F (units (unknown) date) unknown) (unknown) (no (unknown) (unknown) Albumin 4.0 g/dL (units (unknown) date) (3.5-5.0) unknown) 07/27/21 09:40 (unknown) (no (unknown) (unknown) Albumin/Globulin (units (unknown) date) Ratio 1.3 unknown) (1.0-2.8) 07/27/21 09:40 (unknown) (no (unknown) (unknown) Alkaline (units (unkno wn) date) Phosphatase 116 unknown) U/L (38-126) 07/27/21 09:40 (unknown) (no (unknown) (unknown) Allergy/AdvReac (units (unknown) date) Type Severity unknown) Reaction Status Date / Time (unknown) (no (unknown) (unknown) Assessment and (units (unknown) date) Plan unknown) (unknown) (no (unknown) (unknown) BUN 14 mg/dL (units ( unknown) date) (7-17) 07/27/21 unknown) 09:40 (unknown) (no (unknown) (unknown) BUN/Creatinine (units (unknown) date) Ratio 26.4 (6-22) unknown) H 07/27/21 09:40 (unknown) (no (unknown) (unknown) Baso # (Auto) 0 (units (unknown) date) /uL (0-100) unknown) 07/27/21 09:40 (unknown) (no (unknown) (unknown) Baso % (Auto) 0.4 (units (unknown) date) % (0-2) 07/27/21 unknown) 09:40 (unknown) (no (unknown) (unknown) CA 15-3 Antigen (units (unknown) date) 13.1 U/mL unknown) (0.0-25.0) 12/29/20 16:51 (unknown) (no (unknown) (unknown) CA 27-29 18.9 (units (unknown) date) U/mL (0.0-38.6) unknown) 12/29/20 16:51 (unknown) (no (unknown) (unknown) Calcium 9.7 mg/dL (units (unknown) date) (8.4-10.2) unknown) 07/27/21 09:40 (unknown) (no (unknown) (unknown) Carbon Dioxide 32 (units (unknown) date) mmol/L (22-32) unknown) 07/27/21 09:40 (unknown) (no (unknown) (unknown) Chief Complaint: (units (unknown) date) f/u breast cancer unknown) (unknown) (no (unknown) (unknown) Chloride 98 (units (u nknown) date) mmol/L (98-107) unknown) 07/27/21 09:40 (unknown) (no (unknown) (unknown) Continue (units (unkno wn) date) anastrazole unknown) (unknown) (no (unknown) (unknown) Creatinine 0.53 (units (unknown) date) mg/dL (0.52-1.04) unknown) 07/27/21 09:40 (unknown) (no (unknown) (unknown) : 1950 (units (unknown) date) Acct:[id number] unknown) (unknown) (no (unknown) (unknown) Date of visit: (units (unknown) date) 07/27/21 unknown) (unknown) (no (unknown) (unknown) Eos # (Auto) 200 (units (unknown) date) /uL (0-450) unknown) 07/27/21 09:40 (unknown) (no (unknown) (unknown) Eos % (Auto) 1.9 (units (unknown) date) % (2-4) L unknown) 07/27/21 09:40 (unknown) (no (unknown) (unknown) Estimated GFR > (units (unknown) date) 60.0 mL/min (>60) unknown) 07/27/21 09:40 (unknown) (no (unknown) (unknown) Exam (units (unkno wn) date) unknown) (unknown) (no (unknown) (unknown) GenericComposite[P (units (unknown) date) lt Count 278 unknown) X10^3/uL (150-400) 07/27/21 09:40 ] (unknown) (no (unknown) (unknown) GenericComposite[R (units (unknown) date) BC 4.35 X10^6/uL unknown) (4.0-5.2) 07/27/21 09:40 ] (unknown) (no (unknown) (unknown) GenericComposite[W (units (unknown) date) BC 7.8 X10^3/uL unknown) (4.5-11.0) 07/27/21 09:40 ] (unknown) (no (unknown) (unknown) Globulin 3.2 g/dL (units (unknown) date) (1.7-4.1) unknown) 07/27/21 09:40 (unknown) (no (unknown) (unknown) Glucose 302 mg/dL (units (unknown) date) (80-110) H unknown) 07/27/21 09:40 (unknown) (no (unknown) (unknown) Hct 39.5 % (units (un known) date) (36-46) 07/27/21 unknown) 09:40 (unknown) (no (unknown) (unknown) Hgb 13.1 g/dL (units (unknown) date) (12.0-16.0) unknown) 07/27/21 09:40 (unknown) (no (unknown) (unknown) History (units (unkno wn) date) unknown) (unknown) (no (unknown) (unknown) Home Medications (units (unknown) date) and Allergies unknown) (unknown) (no (unknown) (unknown) Interval history: (units (unknown) date) unknown) (unknown) (no (unknown) (unknown) [place] however (units (unknown) date) wishes to transfer unknown) care to the [facility]. At this (unknown) (no (unknown) (unknown) Left shouldre (units ( unknown) date) biopsy shows no unknown) evidence of cancer. Recent bone scan was neagtive (unknown) (no (unknown) (unknown) Lymph # (Auto) (units (unknown) date) 1600 /uL unknown) ([id number]) 07/27/21 09:40 (unknown) (no (unknown) (unknown) Lymph % (Auto) (units (unknown) date) 20.2 % (25-40) L unknown) 07/27/21 09:40 (unknown) (no (unknown) (unknown) MCH 30.2 PG (units (u nknown) date) (26-34) 07/27/21 unknown) 09:40 (unknown) (no (unknown) (unknown) MCHC 33.2 % (units (u nknown) date) (30-36) 07/27/21 unknown) 09:40 (unknown) (no (unknown) (unknown) MCV 90.9 fL (units (u nknown) date) (80-100) 07/27/21 unknown) 09:40 (unknown) (no (unknown) (unknown) [place] # (Auto) 500 (units (unknown) date) /uL (0-900) unknown) 07/27/21 09:40 (unknown) (no (unknown) (unknown) [place] % (Auto) 6.7 (units (unknown) date) % (3-14) 07/27/21 unknown) 09:40 (unknown) (no (unknown) (unknown) Neut # (Auto) (units ( unknown) date) 5500 /uL unknown) ([id number]) 07/27/21 09:40 (unknown) (no (unknown) (unknown) Neut % (Auto) (units ( unknown) date) 70.8 % (50-75) unknown) 07/27/21 09:40 (unknown) (no (unknown) (unknown) No Known Drug (units ( unknown) date) Allergies Allergy unknown) Verified 07/11/21 17:53 (unknown) (no (unknown) (unknown) No dental (units (unkn own) date) clearance needed as unknown) she has dentures. (unknown) (no (unknown) (unknown) Other: (units (unkno wn) date) unknown) (unknown) (no (unknown) (unknown) PN -Subjective (units (unknown) date) unknown) (unknown) (no (unknown) (unknown) Patient: (units (unkno wn) date) Mary Kate Kaiser unknown) MR#: [id number] (unknown) (no (unknown) (unknown) Plan (units (unkno wn) date) unknown) (unknown) (no (unknown) (unknown) Potassium 3.9 (units (unknown) date) mmol/L (3.4-5.1) unknown) 07/27/21 09:40 (unknown) (no (unknown) (unknown) Provider: (units (unkn own) date) Emmett Early MD unknown) (unknown) (no (unknown) (unknown) RDW 14.4 % (units (un known) date) (11.6-14.8) unknown) 07/27/21 09:40 (unknown) (no (unknown) (unknown) Recent tumor (units (u nknown) date) markers are unknown) negative and her cbc is normal. (unknown) (no (unknown) (unknown) Results (units (unkno wn) date) unknown) (unknown) (no (unknown) (unknown) SR Cardiovascular (units (unknown) date) issues: Shortness unknown) of breath with activity or lying flat (unknown) (no (unknown) (unknown) SR Constitution: (units (unknown) date) Fatigue/Malaise unknown) (unknown) (no (unknown) (unknown) SR Endocrine (units (u nknown) date) issues: Heat unknown) intolerance (unknown) (no (unknown) (unknown) SR (units (unkno wn) date) Gastrointestinal unknown) issues: Nausea (unknown) (no (unknown) (unknown) SR Musculoskeletal (units (unknown) date) issues: Joint pain unknown) or swelling, Muscle weakness, Bone pain (unknown) (no (unknown) (unknown) SR Neuro issues: (units (unknown) date) Headache, unknown) Difficulty balancing (unknown) (no (unknown) (unknown) SR ears, nose, (units (unknown) date) mouth, throat unknown) issues: Swollen glands (unknown) (no (unknown) (unknown) SR respiratory (units (unknown) date) issues: Shortness unknown) of breath (unknown) (no (unknown) (unknown) She did have (units (u nknown) date) biopsy of her left unknown) shoulder with Dr Gannon with no evidence of (unknown) (no (unknown) (unknown) She was also (units (u nknown) date) diagnosed with CHF unknown) after presenting to ER with orthopnea and is (unknown) (no (unknown) (unknown) Signed By: (units (unk nown) date) unknown) (unknown) (no (unknown) (unknown) Sodium 138 mmol/L (units (unknown) date) (137-145) unknown) 07/27/21 09:40 (unknown) (no (unknown) (unknown) Status: Acute (units ( unknown) date) unknown) (unknown) (no (unknown) (unknown) This is a (units (unkn own) date) 70-year-old female unknown) with a history of stage II breast cancer diagnosed (unknown) (no (unknown) (unknown) Total Bilirubin (units (unknown) date) 0.5 mg/dL (0.2-1.3) unknown) 07/27/21 09:40 (unknown) (no (unknown) (unknown) Total Protein 7.2 (units (unknown) date) g/dL (6.3-8.2) unknown) 07/27/21 09:40 (unknown) (no (unknown) (unknown) Vital signs: (units (u nknown) date) unknown) (unknown) (no (unknown) (unknown) Weight 128.5 kg (units (unknown) date) unknown) (unknown) (no (unknown) (unknown) Who was diagnosed (units (unknown) date) with stage II unknown) right-sided breast cancer in September of 2016. She (unknown) (no (unknown) (unknown) aerosol inhaler (units (unknown) date) (Ventolin HFA) unknown) (unknown) (no (unknown) (unknown) albuterol sulfate (units (unknown) date) 90 mcg/actuation 2 unknown) puff INHALATION Q6H PRN 12/29/20 12/29/20 (unknown) (no (unknown) (unknown) alprazolam 1 mg (units (unknown) date) tablet mg 07/11/21 unknown) History (unknown) (no (unknown) (unknown) anastrozole 1 mg (units (unknown) date) tablet 1 mg PO unknown) DAILY 12/29/20 12/29/20 History (unknown) (no (unknown) (unknown) anastrozole in (units (unknown) date) October of 2016. With unknown) regard to osteoporosis she is on calcium and (unknown) (no (unknown) (unknown) bupropion HCl 100 (units (unknown) date) mg tablet 300 mg PO unknown) DAILY 06/15/21 06/15/21 History (unknown) (no (unknown) (unknown) cancer. She will (units (unknown) date) see another unknown) orthopedist for further managment of shoulder pain. (unknown) (no (unknown) (unknown) denosumab/Prolia (units (unknown) date) today and q 6 unknown) months. (unknown) (no (unknown) (unknown) did not receive (units (unknown) date) adjuvant radiation unknown) or chemotherapy while she was being treated (unknown) (no (unknown) (unknown) every 6 months. (units (unknown) date) She has a 50 unknown) pack-year smoking history and has had yearly CT (unknown) (no (unknown) (unknown) evidence of cancer (units (unknown) date) on biopsy. I will unknown) see her back in 6 months. Will help her (unknown) (no (unknown) (unknown) except for left (units (unknown) date) shoulder/humerus. unknown) Further workup per ortho since there was no (unknown) (no (unknown) (unknown) expedite referral (units (unknown) date) to Cardiology for unknown) new dx of CHF. (unknown) (no (unknown) (unknown) fluticasone (units (un known) date) propionate 50 2 unknown) spray INTRANASAL DAILY 12/29/20 12/29/20 History (unknown) (no (unknown) (unknown) for Zometa for (units (unknown) date) bone health. unknown) (unknown) (no (unknown) (unknown) furosemide 40 mg (units (unknown) date) tablet (Lasix) 40 unknown) mg PO DAILY #5 tab 07/11/21 Rx (unknown) (no (unknown) (unknown) in September of 2016. (units (unknown) date) The breast cancer unknown) was ER 100% positive and HER2 negative. She (unknown) (no (unknown) (unknown) in [place]. (units (unknown) date) However she has unknown) been on anastrozole since October 2016. The (unknown) (no (unknown) (unknown) mammogram (units (unkn own) date) screening, unknown) continuation of anastrozole 1 mg daily, Prolia 60 mg every (unknown) (no (unknown) (unknown) mcg/actuation (units ( unknown) date) nasal unknown) (unknown) (no (unknown) (unknown) mg tablet (units (unkn own) date) (Percocet) unknown) (unknown) (no (unknown) (unknown) samantha Kaiser is a (units (unknown) date) 70 year old female unknown) (unknown) (no (unknown) (unknown) of adjuvant (units (un known) date) treatments. She unknown) was previously seen by Dr. Araya being on [facility] (unknown) (no (unknown) (unknown) oxycodone-acetamin (units (unknown) date) ophen 10 mg-325 1 unknown) tab PO 5XD 06/15/21 06/15/21 History (unknown) (no (unknown) (unknown) plan is to (units (unk nown) date) continue unknown) anastrozole for 10 years since she has not had other forms (unknown) (no (unknown) (unknown) point in time will (units (unknown) date) proceed with unknown) routine surveillance including right-sided (unknown) (no (unknown) (unknown) positive lymph (units (unknown) date) nodes. She did not unknown) receive adjuvant radiation or chemotherapy (unknown) (no (unknown) (unknown) previously seen by (units (unknown) date) Dr. Araya an on unknown) [facility] however she wishes to (unknown) (no (unknown) (unknown) quetiapine 25 mg (units (unknown) date) tablet 25 mg PO unknown) DAILY 12/29/20 12/29/20 History (unknown) (no (unknown) (unknown) quetiapine 25 mg (units (unknown) date) tablet 50 mg PO unknown) BEDTIME 12/29/20 12/29/20 History (unknown) (no (unknown) (unknown) referral to (units (un known) date) cardiology unknown) (unknown) (no (unknown) (unknown) spray,suspension (units (unknown) date) unknown) (unknown) (no (unknown) (unknown) surveillance (units (u nknown) date) studies the latest unknown) was which was July of 2019. The patient was (unknown) (no (unknown) (unknown) tiotropium bromide (units (unknown) date) 18 mcg capsule 1 unknown) cap INHALATION DAILY 12/29/20 12/29/20 (unknown) (no (unknown) (unknown) transfer care to (units (unknown) date) and [facility] for unknown) logistical reasons. 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 She continues on AI therapy and is here (unknown) (no (unknown) (unknown) turmeric 400 mg (units (unknown) date) capsule mg PO unknown) 12/29/20 History (unknown) (no (unknown) (unknown) underwent (units (unkn own) date) right-sided breast unknown) mastectomy with tumor size of 2.1 cm and 05/15 (unknown) (no (unknown) (unknown) vitamin-D (units (unkno wn) date) supplements and has unknown) been on Prolia which was started in [place] (unknown) (no (unknown) (unknown) was T2 N1 M0, ER (units (unknown) date) 100%, NM 21%, HER2 unknown) negative, Oncotype Pauline DX equal 20. She (unknown) (no (unknown) (unknown) which is while she (units (unknown) date) was being treated unknown) in [place]. She was started on (unknown) (no (unknown) (unknown) with HandiHaler) (units (unknown) date) unknown) (unknown) (no (unknown) (unknown) with inhalation (units (unknown) date) device (Spiriva unknown) Result panel 5 (unknown) (no (unknown) (unknown) (no value) (units (unk nown) date) unknown) (unknown) (no (unknown) (unknown) Date of Service: (units (unknown) date) 07/27/21 unknown) (unknown) (no (unknown) (unknown) (no value) (units (unk nown) date) unknown) (unknown) (no (unknown) (unknown) Allergies (units (unkn own) date) unknown) (unknown) (no (unknown) (unknown) Home Medications (units (unknown) date) unknown) (unknown) (no (unknown) (unknown) Intake and Output (units (unknown) date) unknown) (unknown) (no (unknown) (unknown) [facility] (units (unknown) date) [address] unknown) [place] [address] (unknown) (no (unknown) (unknown) Laboratory Last (units (unknown) date) Values unknown) (unknown) (no (unknown) (unknown) Oncology Progress (units (unknown) date) Note unknown) (unknown) (no (unknown) (unknown) Patient Weight (units (unknown) date) unknown) (unknown) (no (unknown) (unknown) Vital Signs (units (un known) date) unknown) (unknown) (no (unknown) (unknown) (no value) (units (unk nown) date) unknown) (unknown) (no (unknown) (unknown) Temp Pulse Resp BP (units (unknown) date) Pulse Ox unknown) (unknown) (no (unknown) (unknown) Weight 128.5 kg (units (unknown) date) unknown) (unknown) (no (unknown) (unknown) 07/26/21 07/27/21 (units (unknown) date) 07/27/21 unknown) (unknown) (no (unknown) (unknown) 07/27/21 (units (unkno wn) date) unknown) (unknown) (no (unknown) (unknown) 07/27/21 10:57 (units (unknown) date) 98.4 F 105 H 16 unknown) 129/85 97 (unknown) (no (unknown) (unknown) 23:59 (units (unkno wn) date) unknown) (unknown) (no (unknown) (unknown) 23:59 07:59 15:59 (units (unknown) date) unknown) (unknown) (no (unknown) (unknown) Medication (units (unk nown) date) Instructions unknown) Recorded Confirmed Type (unknown) (no (unknown) (unknown) (1) Breast cancer (units (unknown) date) unknown) (unknown) (no (unknown) (unknown) - Date of Visit (units (unknown) date) unknown) (unknown) (no (unknown) (unknown) - Labs (units (unkno wn) date) unknown) (unknown) (no (unknown) (unknown) - Patient (units (unkn own) date) Self-Reported unknown) Symptoms (unknown) (no (unknown) (unknown) 6 months, (units (unkn own) date) surveillance CTs unknown) due to high risk smoking history. (unknown) (no (unknown) (unknown) 6101 (units (unkno wn) date) unknown) (unknown) (no (unknown) (unknown) ALT 57 IU/L (<35) (units (unknown) date) H 07/27/21 09:40 unknown) (unknown) (no (unknown) (unknown) AST 43 IU/L (units (u nknown) date) (14-36) H unknown) 07/27/21 09:40 (unknown) (no (unknown) (unknown) Age/Sex: 70 / F (units (unknown) date) unknown) (unknown) (no (unknown) (unknown) Albumin 4.0 g/dL (units (unknown) date) (3.5-5.0) unknown) 07/27/21 09:40 (unknown) (no (unknown) (unknown) Albumin/Globulin (units (unknown) date) Ratio 1.3 unknown) (1.0-2.8) 07/27/21 09:40 (unknown) (no (unknown) (unknown) Alkaline (units (unkno wn) date) Phosphatase 116 unknown) U/L (38-126) 07/27/21 09:40 (unknown) (no (unknown) (unknown) Allergy/AdvReac (units (unknown) date) Type Severity unknown) Reaction Status Date / Time (unknown) (no (unknown) (unknown) Assessment and (units (unknown) date) Plan unknown) (unknown) (no (unknown) (unknown) BUN 14 mg/dL (units ( unknown) date) (7-17) 07/27/21 unknown) 09:40 (unknown) (no (unknown) (unknown) BUN/Creatinine (units (unknown) date) Ratio 26.4 (6-22) unknown) H 07/27/21 09:40 (unknown) (no (unknown) (unknown) Baso # (Auto) 0 (units (unknown) date) /uL (0-100) unknown) 07/27/21 09:40 (unknown) (no (unknown) (unknown) Baso % (Auto) 0.4 (units (unknown) date) % (0-2) 07/27/21 unknown) 09:40 (unknown) (no (unknown) (unknown) CA 15-3 Antigen (units (unknown) date) 13.1 U/mL unknown) (0.0-25.0) 12/29/20 16:51 (unknown) (no (unknown) (unknown) CA 27-29 18.9 (units (unknown) date) U/mL (0.0-38.6) unknown) 12/29/20 16:51 (unknown) (no (unknown) (unknown) Calcium 9.7 mg/dL (units (unknown) date) (8.4-10.2) unknown) 07/27/21 09:40 (unknown) (no (unknown) (unknown) Carbon Dioxide 32 (units (unknown) date) mmol/L (22-32) unknown) 07/27/21 09:40 (unknown) (no (unknown) (unknown) Chief Complaint: (units (unknown) date) f/u breast cancer unknown) (unknown) (no (unknown) (unknown) Chloride 98 (units (u nknown) date) mmol/L (98-107) unknown) 07/27/21 09:40 (unknown) (no (unknown) (unknown) Continue (units (unkno wn) date) anastrazole unknown) (unknown) (no (unknown) (unknown) Creatinine 0.53 (units (unknown) date) mg/dL (0.52-1.04) unknown) 07/27/21 09:40 (unknown) (no (unknown) (unknown) : 1950 (units (unknown) date) Acct:[id number] unknown) (unknown) (no (unknown) (unknown) Date of visit: (units (unknown) date) 07/27/21 unknown) (unknown) (no (unknown) (unknown) Eos # (Auto) 200 (units (unknown) date) /uL (0-450) unknown) 07/27/21 09:40 (unknown) (no (unknown) (unknown) Eos % (Auto) 1.9 (units (unknown) date) % (2-4) L unknown) 07/27/21 09:40 (unknown) (no (unknown) (unknown) Estimated GFR > (units (unknown) date) 60.0 mL/min (>60) unknown) 07/27/21 09:40 (unknown) (no (unknown) (unknown) Exam (units (unkno wn) date) unknown) (unknown) (no (unknown) (unknown) GenericComposite[P (units (unknown) date) lt Count 278 unknown) X10^3/uL (150-400) 07/27/21 09:40 ] (unknown) (no (unknown) (unknown) GenericComposite[R (units (unknown) date) BC 4.35 X10^6/uL unknown) (4.0-5.2) 07/27/21 09:40 ] (unknown) (no (unknown) (unknown) GenericComposite[W (units (unknown) date) BC 7.8 X10^3/uL unknown) (4.5-11.0) 07/27/21 09:40 ] (unknown) (no (unknown) (unknown) Globulin 3.2 g/dL (units (unknown) date) (1.7-4.1) unknown) 07/27/21 09:40 (unknown) (no (unknown) (unknown) Glucose 302 mg/dL (units (unknown) date) (80-110) H unknown) 07/27/21 09:40 (unknown) (no (unknown) (unknown) Hct 39.5 % (units (un known) date) (36-46) 07/27/21 unknown) 09:40 (unknown) (no (unknown) (unknown) Hgb 13.1 g/dL (units (unknown) date) (12.0-16.0) unknown) 07/27/21 09:40 (unknown) (no (unknown) (unknown) History (units (unkno wn) date) unknown) (unknown) (no (unknown) (unknown) Home Medications (units (unknown) date) and Allergies unknown) (unknown) (no (unknown) (unknown) Interval history: (units (unknown) date) unknown) (unknown) (no (unknown) (unknown) [place] however (units (unknown) date) wishes to transfer unknown) care to the [facility]. At this (unknown) (no (unknown) (unknown) Left shouldre (units ( unknown) date) biopsy shows no unknown) evidence of cancer. Recent bone scan was neagtive (unknown) (no (unknown) (unknown) Lymph # (Auto) (units (unknown) date) 1600 /uL unknown) ([id number]) 07/27/21 09:40 (unknown) (no (unknown) (unknown) Lymph % (Auto) (units (unknown) date) 20.2 % (25-40) L unknown) 07/27/21 09:40 (unknown) (no (unknown) (unknown) MCH 30.2 PG (units (u nknown) date) (26-34) 07/27/21 unknown) 09:40 (unknown) (no (unknown) (unknown) MCHC 33.2 % (units (u nknown) date) (30-36) 07/27/21 unknown) 09:40 (unknown) (no (unknown) (unknown) MCV 90.9 fL (units (u nknown) date) (80-100) 07/27/21 unknown) 09:40 (unknown) (no (unknown) (unknown) [place] # (Auto) 500 (units (unknown) date) /uL (0-900) unknown) 07/27/21 09:40 (unknown) (no (unknown) (unknown) [place] % (Auto) 6.7 (units (unknown) date) % (3-14) 07/27/21 unknown) 09:40 (unknown) (no (unknown) (unknown) Neut # (Auto) (units ( unknown) date) 5500 /uL unknown) ([id number]) 07/27/21 09:40 (unknown) (no (unknown) (unknown) Neut % (Auto) (units ( unknown) date) 70.8 % (50-75) unknown) 07/27/21 09:40 (unknown) (no (unknown) (unknown) No Known Drug (units ( unknown) date) Allergies Allergy unknown) Verified 07/11/21 17:53 (unknown) (no (unknown) (unknown) No dental (units (unkn own) date) clearance needed as unknown) she has dentures. (unknown) (no (unknown) (unknown) Other: (units (unkno wn) date) unknown) (unknown) (no (unknown) (unknown) PN -Subjective (units (unknown) date) unknown) (unknown) (no (unknown) (unknown) Patient: (units (unkno wn) date) Mary Kate Kaiser unknown) MR#: [id number] (unknown) (no (unknown) (unknown) Plan (units (unkno wn) date) unknown) (unknown) (no (unknown) (unknown) Potassium 3.9 (units (unknown) date) mmol/L (3.4-5.1) unknown) 07/27/21 09:40 (unknown) (no (unknown) (unknown) Provider: (units (unkn own) date) Emmett Early MD unknown) (unknown) (no (unknown) (unknown) RDW 14.4 % (units (un known) date) (11.6-14.8) unknown) 07/27/21 09:40 (unknown) (no (unknown) (unknown) Recent tumor (units (u nknown) date) markers are unknown) negative and her cbc is normal. (unknown) (no (unknown) (unknown) Results (units (unkno wn) date) unknown) (unknown) (no (unknown) (unknown) SR Cardiovascular (units (unknown) date) issues: Shortness unknown) of breath with activity or lying flat (unknown) (no (unknown) (unknown) SR Constitution: (units (unknown) date) Fatigue/Malaise unknown) (unknown) (no (unknown) (unknown) SR Endocrine (units (u nknown) date) issues: Heat unknown) intolerance (unknown) (no (unknown) (unknown) SR (units (unkno wn) date) Gastrointestinal unknown) issues: Nausea (unknown) (no (unknown) (unknown) SR Musculoskeletal (units (unknown) date) issues: Joint pain unknown) or swelling, Muscle weakness, Bone pain (unknown) (no (unknown) (unknown) SR Neuro issues: (units (unknown) date) Headache, unknown) Difficulty balancing (unknown) (no (unknown) (unknown) SR ears, nose, (units (unknown) date) mouth, throat unknown) issues: Swollen glands (unknown) (no (unknown) (unknown) SR respiratory (units (unknown) date) issues: Shortness unknown) of breath (unknown) (no (unknown) (unknown) She did have (units (u nknown) date) biopsy of her left unknown) shoulder with Dr Gannon with no evidence of (unknown) (no (unknown) (unknown) She was also (units (u nknown) date) diagnosed with CHF unknown) after presenting to ER with orthopnea and is (unknown) (no (unknown) (unknown) Signed (units (unkno wn) date) By:<Electronically unknown) signed by Emmett Early MD>07/27/21 1737 (unknown) (no (unknown) (unknown) Sodium 138 mmol/L (units (unknown) date) (137-145) unknown) 07/27/21 09:40 (unknown) (no (unknown) (unknown) Status: Acute (units ( unknown) date) unknown) (unknown) (no (unknown) (unknown) This is a (units (unkn own) date) 70-year-old female unknown) with a history of stage II breast cancer diagnosed (unknown) (no (unknown) (unknown) Total Bilirubin (units (unknown) date) 0.5 mg/dL (0.2-1.3) unknown) 07/27/21 09:40 (unknown) (no (unknown) (unknown) Total Protein 7.2 (units (unknown) date) g/dL (6.3-8.2) unknown) 07/27/21 09:40 (unknown) (no (unknown) (unknown) Vital signs: (units (u nknown) date) unknown) (unknown) (no (unknown) (unknown) Weight 128.5 kg (units (unknown) date) unknown) (unknown) (no (unknown) (unknown) Who was diagnosed (units (unknown) date) with stage II unknown) right-sided breast cancer in September of 2016. She (unknown) (no (unknown) (unknown) aerosol inhaler (units (unknown) date) (Ventolin HFA) unknown) (unknown) (no (unknown) (unknown) albuterol sulfate (units (unknown) date) 90 mcg/actuation 2 unknown) puff INHALATION Q6H PRN 12/29/20 12/29/20 (unknown) (no (unknown) (unknown) alprazolam 1 mg (units (unknown) date) tablet mg 07/11/21 unknown) History (unknown) (no (unknown) (unknown) anastrozole 1 mg (units (unknown) date) tablet 1 mg PO unknown) DAILY 12/29/20 12/29/20 History (unknown) (no (unknown) (unknown) anastrozole in (units (unknown) date) October of 2016. With unknown) regard to osteoporosis she is on calcium and (unknown) (no (unknown) (unknown) bupropion HCl 100 (units (unknown) date) mg tablet 300 mg PO unknown) DAILY 06/15/21 06/15/21 History (unknown) (no (unknown) (unknown) cancer. She will (units (unknown) date) see another unknown) orthopedist for further managment of shoulder pain. (unknown) (no (unknown) (unknown) denosumab/Prolia (units (unknown) date) today and q 6 unknown) months. (unknown) (no (unknown) (unknown) did not receive (units (unknown) date) adjuvant radiation unknown) or chemotherapy while she was being treated (unknown) (no (unknown) (unknown) every 6 months. (units (unknown) date) She has a 50 unknown) pack-year smoking history and has had yearly CT (unknown) (no (unknown) (unknown) evidence of cancer (units (unknown) date) on biopsy. I will unknown) see her back in 6 months. Will help her (unknown) (no (unknown) (unknown) except for left (units (unknown) date) shoulder/humerus. unknown) Further workup per ortho since there was no (unknown) (no (unknown) (unknown) expedite referral (units (unknown) date) to Cardiology for unknown) new dx of CHF. (unknown) (no (unknown) (unknown) fluticasone (units (un known) date) propionate 50 2 unknown) spray INTRANASAL DAILY 12/29/20 12/29/20 History (unknown) (no (unknown) (unknown) for Zometa for (units (unknown) date) bone health. unknown) (unknown) (no (unknown) (unknown) furosemide 40 mg (units (unknown) date) tablet (Lasix) 40 unknown) mg PO DAILY #5 tab 07/11/21 Rx (unknown) (no (unknown) (unknown) in September of 2016. (units (unknown) date) The breast cancer unknown) was ER 100% positive and HER2 negative. She (unknown) (no (unknown) (unknown) in [place]. (units (unknown) date) However she has unknown) been on anastrozole since October 2016. The (unknown) (no (unknown) (unknown) mammogram (units (unkn own) date) screening, unknown) continuation of anastrozole 1 mg daily, Prolia 60 mg every (unknown) (no (unknown) (unknown) mcg/actuation (units ( unknown) date) nasal unknown) (unknown) (no (unknown) (unknown) mg tablet (units (unkn own) date) (Percocet) unknown) (unknown) (no (unknown) (unknown) samantha Kaiser is a (units (unknown) date) 70 year old female unknown) (unknown) (no (unknown) (unknown) of adjuvant (units (un known) date) treatments. She unknown) was previously seen by Dr. Araya being on [facility] (unknown) (no (unknown) (unknown) oxycodone-acetamin (units (unknown) date) ophen 10 mg-325 1 unknown) tab PO 5XD 06/15/21 06/15/21 History (unknown) (no (unknown) (unknown) plan is to (units (unk nown) date) continue unknown) anastrozole for 10 years since she has not had other forms (unknown) (no (unknown) (unknown) point in time will (units (unknown) date) proceed with unknown) routine surveillance including right-sided (unknown) (no (unknown) (unknown) positive lymph (units (unknown) date) nodes. She did not unknown) receive adjuvant radiation or chemotherapy (unknown) (no (unknown) (unknown) previously seen by (units (unknown) date) Dr. Araya an on unknown) [facility] however she wishes to (unknown) (no (unknown) (unknown) quetiapine 25 mg (units (unknown) date) tablet 25 mg PO unknown) DAILY 12/29/20 12/29/20 History (unknown) (no (unknown) (unknown) quetiapine 25 mg (units (unknown) date) tablet 50 mg PO unknown) BEDTIME 12/29/20 12/29/20 History (unknown) (no (unknown) (unknown) referral to (units (un known) date) cardiology unknown) (unknown) (no (unknown) (unknown) spray,suspension (units (unknown) date) unknown) (unknown) (no (unknown) (unknown) surveillance (units (u nknown) date) studies the latest unknown) was which was July of 2019. The patient was (unknown) (no (unknown) (unknown) tiotropium bromide (units (unknown) date) 18 mcg capsule 1 unknown) cap INHALATION DAILY 12/29/20 12/29/20 (unknown) (no (unknown) (unknown) transfer care to (units (unknown) date) and [place] for unknown) logistical reasons. 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 She continues on AI therapy and is here (unknown) (no (unknown) (unknown) turmeric 400 mg (units (unknown) date) capsule mg PO unknown) 12/29/20 History (unknown) (no (unknown) (unknown) underwent (units (unkn own) date) right-sided breast unknown) mastectomy with tumor size of 2.1 cm and 05/15 (unknown) (no (unknown) (unknown) vitamin-D (units (unkno wn) date) supplements and has unknown) been on Prolia which was started in [place] (unknown) (no (unknown) (unknown) was T2 N1 M0, ER (units (unknown) date) 100%, NM 21%, HER2 unknown) negative, Oncotype Pauline DX equal 20. She (unknown) (no (unknown) (unknown) which is while she (units (unknown) date) was being treated unknown) in [place]. She was started on (unknown) (no (unknown) (unknown) with HandiHaler) (units (unknown) date) unknown) (unknown) (no (unknown) (unknown) with inhalation (units (unknown) date) device (Spiriva unknown) Social History No information. Vital Signs No information.
[2021-10-25 20:45] LABS: BASOPHILS % (AUTO) 0.4 %; EOSINOPHILS # (AUTO) 0.1 10^3/uL (0.0-0.7); EOSINOPHILS % (AUTO) 0.7 %; HCT - HEMATOCRIT 39.5 % (37.0-47.0); HGB - HEMOGLOBIN 13.4 g/dL (12.0-16.0); LYMPHOCYTES # (AUTO) 1.4 10^3/uL (1.5-3.5); LYMPHOCYTES % (AUTO) 18.8 %; MEAN CORPUSCULAR HEMOGLOBIN 30.3 pg (27.0-31.0); MEAN CORPUSCULAR HGB CONC 33.9 g/dL (32.0-36.0); MEAN CORPUSCULAR VOLUME 89.4 fL (81.0-99.0); MEAN PLATELET VOLUME 9.3 fL (7.9-10.8); MONOCYTES # (AUTO) 1.1 10^3/uL (0.0-1.0); MONOCYTES % (AUTO) 15.1 %; NEUTROPHILS # (AUTO) 4.6 10^3/uL (1.5-6.6); NEUTROPHILS % (AUTO) 64.7 %; PLT - PLATELET COUNT 256 10^3/uL (130-450); RED BLOOD COUNT 4.42 10^6/uL (4.20-5.40); RED CELL DISTRIBUTION WIDTH 13.5 % (12.0-15.0); WHITE BLOOD COUNT 7.2 x10^3/uL (4.8-10.8)
[2021-10-25 20:59] LABS: ALBUMIN 3.8 g/dL (3.2-5.5); ALBUMIN/GLOBULIN RATIO 1.1 (1.0-2.2); BILIRUBIN,TOTAL 0.3 mg/dL (0.2-1.0); CALCIUM 9.1 mg/dL (8.5-10.3); CREATININE 0.7 mg/dL (0.4-1.0); POTASSIUM 3.6 mmol/L (3.5-5.0); TOTAL PROTEIN 7.4 g/dL (6.7-8.2)
--- NOTE | 2021-10-25 21:37 | ED Physician Documentation ---
History of Present Illness - Stated complaint Stated Complaint: FEVER,BODY ACHE - Chief complaint Chief Complaint: General - History obtained from History obtained from: Patient - History of Present Illness Timing: Yesterday Pain level now: 3 Improved by: nothing Worsened by: no exacerbating factors - Additonal information Additional information: patient c/o fever, generalized headache and body aches since yesterday, worse today. Tmax at home 101.1 (tonight). Has not taken anti-pyretic medication. 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 Dyspnea but she says this is baseline due to COPD; she does not use oxygen at home. c/o chest and back pain but describes this in context of generalized myalgias. She is not COVID vaccinated Review of Systems Constitutional: reports: Fever, Myalgias, Fatigue Throat: denies: Sore throat Cardiac: reports: Chest pain / pressure. denies: Palpitations, Pedal edema Respiratory: reports: Dyspnea (baseline), Cough (mild nonproductive cough). denies: Hemoptysis, Wheezing GI: reports: Reviewed and negative : denies: Dysuria Skin: denies: Rash Musculoskeletal: reports: Back pain Neurologic: reports: Headache. 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 : None HEENT: Chronic hearing loss Psych: None Musculoskeletal: None Derm: None - Past Surgical History Past Surgical History: Yes General: Cholecystectomy, Appendectomy /DRAW FIRE OPERATOR: Hysterectomy, Mastectomy - Present Medications Home Medications: Ambulatory Orders Medication Instructions Recorded Confirmed Tiotropium [place] [Spiriva] 1 cap ORAL DAILY 03/23/18 10/03/21 Quetiapine Fumarate [Seroquel] 25 mg PO TID 05/27/18 10/03/21 Anastrozole [Arimidex] 1 mg PO DAILY #90 tab 01/28/20 10/03/21 Oxycodone HCl/Acetaminophen 1 - 2 each PO Q6H PRN #20 tablet 05/24/21 10/03/21 [Percocet 5-325 mg Tablet] Furosemide [Lasix] 40 mg PO DAILY 10/03/21 10/03/21 Ondansetron Odt [Zofran] 4 mg TL Q6H PRN #10 tablet 10/03/21 - Allergies Allergies/Adverse Reactions: Allergies Allergy/AdvReac Type Severity Reaction Status Date / Time No Known Drug Allergies Allergy Verified 10/03/21 07:41 - Social History Does the pt smoke?: Yes Smoking Status: Current every day smoker Does the pt drink ETOH?: No Does the pt have substance abuse?: No - Immunizations Immunizations are current?: Yes - POLST Patient has POLST: No PD ED PE NORMAL - Vitals Vital signs reviewed: Yes - General General: Alert and oriented X 3, No acute distress, Well developed/nourished - HEENT HEENT: Moist mucous membranes - Neck Neck: Supple, no meningeal sign - Cardiac Cardiac: No murmur - Respiratory Respiratory: No respiratory distress, Clear bilaterally - Abdomen Abdomen: Soft, Non tender - Derm Derm: Normal color, Warm and dry - Extremities Extremities: No edema PD ED PE EXPANDED - Cardiac Cardiac: Tachy, Regular Rhythm Results - Vitals Vitals: Oxygen O2 Source Room air - EKG (time done) No standard instances Rate: Rate (enter#) (110) Rhythm: Sinus tachycardia [place]: Normal Intervals: Normal MI QRS: Normal Ischemia: Normal ST segments - Labs Labs: Laboratory Tests 10/25/21 10/25/21 10/25/21 20:38 20:38 20:38 WBC 7.2 RBC 4.42 Hgb 13.4 Hct 39.5 MCV 89.4 MCH 30.3 MCHC 33.9 RDW 13.5 Plt Count 256 MPV 9.3 Neut # (Auto) 4.6 Lymph # (Auto) 1.4 L [place] # (Auto) 1.1 H Eos # (Auto) 0.1 Baso # (Auto) 0.0 Absolute Nucleated RBC 0.00 Nucleated RBC % 0.0 Sodium 131 L Potassium 3.6 Chloride 98 L Carbon Dioxide 24 Anion Gap 9.0 BUN 10 Creatinine 0.7 Estimated GFR (MDRD) 82 L Glucose 136 H Calcium 9.1 Total Bilirubin 0.3 AST 58 H ALT 41 Alkaline Phosphatase 56 Troponin I High Sens 5.4 Total Protein 7.4 Albumin 3.8 Globulin 3.6 Albumin/Globulin Ratio 1.1 Lipase 22 Nasal Adenovirus (PCR) Nasal B. parapertussis DNA (PCR) Nasal Coronavir 229E PCR Nasal Coronavir HKU1 PCR Nasal Coronavir NL63 PCR Nasal Coronavir OC43 PCR Nasal Enterovir/Rhinovir PCR Nasal Influenza B PCR Nasal Influenza A PCR Nasal Parainfluen 1 PCR Nasal Parainfluen 2 PCR Nasal Parainfluen 3 PCR Nasal Parainfluen 4 PCR Nasal RSV (PCR) Nasal B.pertussis DNA PCR Nasal C.pneumoniae (PCR) [place] Human Metapneumo PCR Nasal M.pneumoniae (PCR) Nasal SARS-CoV-2 (PCR) 10/25/21 21:00 WBC RBC Hgb Hct MCV MCH MCHC RDW Plt Count MPV Neut # (Auto) Lymph # (Auto) [place] # (Auto) Eos # (Auto) Baso # (Auto) Absolute Nucleated RBC Nucleated RBC % Sodium Potassium Chloride Carbon Dioxide Anion Gap BUN Creatinine Estimated GFR (MDRD) Glucose Calcium Total Bilirubin AST ALT Alkaline Phosphatase Troponin I High Sens Total Protein Albumin Globulin Albumin/Globulin Ratio Lipase Nasal Adenovirus (PCR) NOT DETECTED Nasal B. parapertussis DNA (PCR) NOT DETECTED Nasal Coronavir 229E PCR NOT DETECTED Nasal Coronavir HKU1 PCR NOT DETECTED Nasal Coronavir NL63 PCR NOT DETECTED Nasal Coronavir OC43 PCR NOT DETECTED Nasal Enterovir/Rhinovir PCR NOT DETECTED Nasal Influenza B PCR NOT DETECTED Nasal Influenza A PCR NOT DETECTED Nasal Parainfluen 1 PCR NOT DETECTED Nasal Parainfluen 2 PCR NOT DETECTED Nasal Parainfluen 3 PCR NOT DETECTED Nasal Parainfluen 4 PCR NOT DETECTED Nasal RSV (PCR) NOT DETECTED Nasal B.pertussis DNA PCR NOT DETECTED Nasal C.pneumoniae (PCR) NOT DETECTED [place] Human Metapneumo PCR NOT DETECTED Nasal M.pneumoniae (PCR) NOT DETECTED Nasal SARS-CoV-2 (PCR) DETECTED A - Rads (name of study) chest xray Radiology: Prelim report reviewed, See rad report PD MEDICAL DECISION MAKING - ED course Complexity details: reviewed results, re-evaluated patient, considered differential, d/w patient ED course: No concerning findings on CXR, blood tests including hs-cTn, EKG. She tests positive for COVID-19. She is in NAD, no indications for admission. paxlovid is considered and discussed, but significant potential for interaction with her quetiapine. I advised patient that I can provide Paxlovid but I would recommend she then stops her quetiapine for the five day cours of paxlovid. Patient takes the questiapine TID and thus stopping this medication completely for five days would potentially present its own challenges. After further discussion, the outcome of shared decision making process was to not rx paxlovid. Return precautions carefully reviewed with emphasis on worsening dyspnea as a concern. Patient expresses understanding and is comfortable with d/c Departure - Departure Disposition: 01 Home, Self Care Clinical Impression: COVID Condition: Good Instructions: ED Viral Syndrome Comments: YOU HAVE TESTED POSITIVE FOR COVID-19. This explains your signs and symptoms. Follow the CDC guidelines for isolation. The information can be found on the following website: https://www.cdc.gov/coronavirus/2019-ncov/your-health/quarantine-isolation.html# Rather than typing in the above address, just search "CDC covid isolation" on [employer] and click on the appropriate link; then make sure that the website you are on matches the web address above. From there, you can use the isolation guideline tab as well as the calculator to get an idea as to how long you should isolate. Discharge Date/Time: 10/25/21 23:31
[2021-10-25] MEDS ORDERED: ACETAMINOPHEN 325 MG TABLET PO STA (21:50)
--- NOTE | 2021-10-25 21:53 | XRAY Report ---
PROCEDURE: Chest 1 View X-Ray INDICATIONS: cough TECHNIQUE: One view of the chest was acquired. COMPARISON: 01/31/2020. FINDINGS: Surgical changes and devices: None. Lungs and pleura: No pleural effusions or pneumothorax. Lungs are clear. Mediastinum: Mediastinal contours appear normal. Heart size is normal. Bones and chest wall: No suspicious bony lesions. Overlying soft tissues appear unremarkable. IMPRESSION: 1. No acute cardiopulmonary disease. Reviewed by: Yusuf Edwards MD on 10/25/2021 9:52 PM PDT Approved by: Yusuf Edwards MD on 10/25/2021 9:52 PM PDT Station ID: [id number]
[2021-10-25 22:36] LABS: CORONAVIRUS 229E-RESP PCR NOT DETECTED; CORONAVIRUS HKU1-RESP PCR NOT DETECTED; CORONAVIRUS NL63-RESP PCR NOT DETECTED; CORONAVIRUS OC43-RESP PCR NOT DETECTED
[2021-10-25 22:37] LABS: B. PARAPERTUSSIS- RESP PCR PAN NOT DETECTED; B. PERTUSSIS- RESP PCR PANEL NOT DETECTED; C. PNEUMONIAE- RESP PCR PANEL NOT DETECTED; HUMAN METAPNEUMOVIRUS NOT DETECTED; INFLUENZA A- RESP PCR PANEL NOT DETECTED; INFLUENZA B - RESP PCR PANEL NOT DETECTED; M. PNEUMONIAE- RESP PCR PANEL NOT DETECTED; PARAINFLUENZA VIRUS 1 NOT DETECTED; PARAINFLUENZA VIRUS 2 NOT DETECTED; PARAINFLUENZA VIRUS 3 NOT DETECTED; PARAINFLUENZA VIRUS 4 NOT DETECTED; RHINOVIRUS/ENTEROVIRUS NOT DETECTED; RSV- RESP PCR PANEL NOT DETECTED; SARS-CoV-2 -RESP PCR PANEL DETECTED
[2021-10-25 23:03] VITALS: BP 152/55
== END 2021-10-25 23:31 | disposition home or self-care (01) ==
LOC: ED 20:00
DX: U07.1 COVID-19 (principal); F17.200 Nicotine dependence, unspecified, uncomplicated
CPT/HCPCS: 36415; 71045; 80053; 83690; 84484; 85025; 87633; 93005; 99283; 99284; A9270

== ENCOUNTER 2021-10-31 07:36 | Emergency (ER) | payer MEDICARE, OTHER ==
--- NOTE | 2021-10-31 08:41 | ED Physician Documentation ---
History of Present Illness - Stated complaint Stated Complaint: SOA - Chief complaint Chief Complaint: Resp - History obtained from History obtained from: Patient - Additonal information Additional information: Patient comes the emergency department chief complaint of cough and shortness of breath since getting COVID 1 week ago. She states that she has not felt too bad other than being very tired, but does feel that her cough is getting worse and she is most concerned about this. Her got pneumonia while he had COVID and wanted her to come in and get checked out. Patient states she had fevers the first couple of days but now does not. She denies any lower extremity edema. No chest pain. She denies any sputum production with the cough. She has a history of COPD but is not on home O2. No other complaints at this time. The patient did declined to have paxlovid last week when she was seen here and diagnosed. Review of Systems Ten Systems: 10 systems reviewed and negative Constitutional: reports: Reviewed and negative Eyes: reports: Reviewed and negative Ears: reports: Reviewed and negative Nose: reports: Reviewed and negative Throat: reports: Reviewed and negative Cardiac: reports: Reviewed and negative Respiratory: reports: Cough GI: reports: Reviewed and negative : reports: Reviewed and negative Skin: reports: Reviewed and negative Musculoskeletal: reports: Reviewed and negative Neurologic: reports: Reviewed and negative Psychiatric: reports: Reviewed and negative Endocrine: reports: Reviewed and negative Immunocompromised: reports: Reviewed and negative PD PAST MEDICAL HISTORY - Past Medical History Past Medical History: Yes Cardiovascular: None Respiratory: None Neuro: None Endocrine/Autoimmune: None GI: None 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, 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 cancer : None HEENT: Chronic hearing loss Psych: None Musculoskeletal: None Derm: None - Past Surgical History Past Surgical History: Yes General: Cholecystectomy, Appendectomy /QUALITY ASSURANCE ASSISTANT: Hysterectomy, Mastectomy - Present Medications Home Medications: Ambulatory Orders Medication Instructions Recorded Confirmed Tiotropium [place] [Spiriva] 1 cap ORAL DAILY 03/23/18 10/03/21 Quetiapine Fumarate [Seroquel] 25 mg PO TID 05/27/18 10/03/21 Anastrozole [Arimidex] 1 mg PO DAILY #90 tab 01/28/20 10/03/21 Oxycodone HCl/Acetaminophen 1 - 2 each PO Q6H PRN #20 tablet 05/24/21 10/03/21 [Percocet 5-325 mg Tablet] Furosemide [Lasix] 40 mg PO DAILY 10/03/21 10/03/21 Ondansetron Odt [Zofran] 4 mg TL Q6H PRN #10 tablet 10/03/21 - Allergies Allergies/Adverse Reactions: Allergies Allergy/AdvReac Type Severity Reaction Status Date / Time No Known Drug Allergies Allergy Verified 10/31/21 07:49 - Social History Does the pt smoke?: Yes Smoking Status: Current every day smoker Does the pt drink ETOH?: No Does the pt have substance abuse?: No - Immunizations Immunizations are current?: Yes - POLST Patient has POLST: No PD ED PE NORMAL - Vitals Vital signs reviewed: Yes - General General: Alert and oriented X 3, No acute distress, Well developed/nourished - HEENT HEENT: Atraumatic, PERRL, EOMI, Moist mucous membranes - Neck Neck: Supple, no meningeal sign - Cardiac Cardiac: RRR, No murmur, Strong equal pulses - Respiratory Respiratory: No respiratory distress, Clear bilaterally - Abdomen Abdomen: Soft, Non tender, Non distended - Derm Derm: Normal color, Warm and dry, No rash - Extremities Extremities: No deformity, No edema - Neuro Neuro: Alert and oriented X 3, marketing communications associate 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 X-ray was negative. We have discussed symptomatic management at home. Departure - Departure Disposition: 01 Home, Self Care Clinical Impression: COVID-19 COPD (chronic obstructive pulmonary disease) Qualifiers: COPD type: unspecified COPD Qualified Code(s): J44.9 - Chronic obstructive pulmonary disease, unspecified Condition: Stable Instructions: ED Viral Syndrome Comments: Your chest x-ray looks great. There is no evidence of pneumonia or any other significant abnormality in the lungs. Please continue to take your normal medications at home. The cough will pass on its own as your body works through the virus. Discharge Date/Time: 10/31/21 09:13
[2021-10-31 09:13] VITALS: BP 149/85
--- NOTE | 2021-10-31 09:19 | XRAY Report ---
PROCEDURE: Chest 1 View X-Ray INDICATIONS: chest pain TECHNIQUE: One view of the chest was acquired. COMPARISON: None FINDINGS: Surgical changes and devices: None. Lungs and pleura: No pleural effusions or pneumothorax. Lungs are clear. Mediastinum: Mediastinal contours appear normal. Heart size is normal. Bones and chest wall: No suspicious bony lesions. Overlying soft tissues appear unremarkable. IMPRESSION: No acute cardiopulmonary abnormality. Reviewed by: Davion Martinez on 10/31/2021 8:18 AM RUPA Approved by: Davion Martinez on 10/31/2021 8:18 AM RUPA Station ID: [id number]
== END 2021-10-31 09:13 | disposition home or self-care (01) ==
LOC: ED 07:36
DX: U07.1 COVID-19 (principal); J44.9 Chronic obstructive pulmonary disease, unspecified; F17.200 Nicotine dependence, unspecified, uncomplicated
CPT/HCPCS: 99282; 99283

== ENCOUNTER 2022-01-18 09:39 | Outpatient (CLI) | payer MEDICARE, OTHER | END 2022-01-18 09:40 | disposition home or self-care (01) | LOC: LAB 09:39 | PROVIDERS: ATTEND Surgery | DX: Z01.812 Encounter for preprocedural laboratory examination (principal); Z86.010 Personal history of colon polyps; R13.10 Dysphagia, unspecified; I50.9 Heart failure, unspecified; R06.02 Shortness of breath; E11.9 Type 2 diabetes mellitus without complications; J44.9 Chronic obstructive pulmonary disease, unspecified; Z79.4 Long term (current) use of insulin; Z20.822 Contact with and (suspected) exposure to COVID-19 ==

== ENCOUNTER 2022-01-19 06:20 | Day surgery (SDC) | payer MEDICARE, OTHER ==
[2022-01-19] MEDS ORDERED: LACTATED RINGERS 1,000 ML IV ONE (06:27)
--- NOTE | 2022-01-19 07:10 | ANESTHESIA ---
Pre-Anesthesia VS, & Labs - Diagnosis HX OF COLON POLYPS, TROUBLE SWALLOWING - Procedure COLONOSCOPY, EGD Vital Signs: Temp Pulse Resp BP Pulse Ox O2 Flow Rate 36.2 C L 108 H 20 143/90 H 96 01/19/22 06:28 01/19/22 06:28 01/19/22 06:28 01/19/22 06:28 01/19/22 06:28 Height: 5 ft 6 in Weight (kg): 107.6 kg Body Mass Index: 38.2 BMI Classification: Obese - NPO >8 hours - Is Patient ?: No - Lab Results Current Lab Results: Laboratory Tests 01/19/22 06:46: POC Whole Bld Glucose 145 H Home Medications and Allergies Home Medications: Ambulatory Orders Albuterol Sulf [Ventolin Hfa Inhaler] 2 puffs PO Q6HR PRN 01/12/22 Insulin Glargine [Lantus Solostar] 12 unit SQ DAILY PRN 01/12/22 Oxycodone HCl 10 mg PO BID 01/12/22 Quetiapine Fumarate [Seroquel] 25 mg PO BID 05/27/18 Furosemide [Lasix] 40 mg PO BID 10/03/21 Mirtazapine 30 mg PO DAILY 12/08/21 Potassium Chloride [Micro-K] 10 meq PO DAILY 12/08/21 Tiotropium [place] [Spiriva] 1 cap NEB DAILY 12/08/21 metFORMIN [Glucophage] 500 mg PO BID 12/08/21 Albuterol Sulf [Ventolin Hfa Inhaler] 2 puffs PO Q6HR PRN 01/12/22 Insulin Glargine [Lantus Solostar] 12 unit SQ DAILY PRN 01/12/22 Oxycodone HCl 10 mg PO BID 01/12/22 Allergies/Adverse Reactions: Allergies Allergy/AdvReac Type Severity Reaction Status Date / Time No Known Drug Allergies Allergy Verified 10/31/21 07:49 Anes History & Medical History - Anesthetic History Anesthesia Complications: reports: No previous complications Family history of Anesthesia Complications: Denies Family history of Malignant Hyperthermia: Denies - Medical History Cardiovascular: reports: Congestive heart failure, Other (HEART CATH IN SEPTEMBER; CLEAR) Pulmonary: reports: COPD, Shortness of breath Gastrointestinal: reports: GERD Urinary: reports: None Neuro: reports: None Musculoskeletal: reports: None, Other Endocrine/Autoimmune: reports: Type 2 diabetes Blood Disorders: reports: None Skin: reports: None Smoking Status: Current every day smoker Psychosocial: reports: No issues indicated History of Cancer?: Yes - Surgical History General: reports: Cholecystectomy, Appendectomy Gynecologic: reports: Hysterectomy, Mastectomy Orthopedic: reports: Other Exam General: Alert, Oriented x3, Cooperative, No acute distress Dental: Dentures full Upper, Dentures full Lower Mouth Openin Fingerbreadth Neck Mobility: Reduced Mallampati classification: II Thyromental Distance: 4-6 cm Cardiovascular: Regular rate Mental/Cognitive Status: Alert/Oriented X3 Cognitive Status: Within normal limits Plan Anesthesia Type: General Consent for Procedure(s) Verified and Reviewed: Yes Code Status: Attempt Resuscitation ASA classification: 2-Mild systemic disease Is this case an emergency?: No
--- NOTE | 2022-01-19 07:21 | HISTORY & PHYSICAL EXAMINATION ---
Chief Complaint - Chief Complaint Chief Complaint: here for egd and colonoscopy History of Present Illness - History Obtained From Records Reviewed: yes History obtained from: pt Exam Limitations: none - History of Present Illness HPI Comment/Other: mild trouble swallowing and history colon polyps History - Past Medical History Cardiovascular: reports: Congestive heart failure, Other (HEART CATH IN SEPTEMBER; CLEAR) Respiratory: reports: COPD, Shortness of breath Neuro: reports: None Endocrine/Autoimmune: reports: Type 2 diabetes GI: reports: GERD ANESTHESIA ASSISTANT: reports: Uterine cancer, Breast cancer : reports: None HEENT: reports: Chronic hearing loss Psych: reports: Depression, Anxiety Musculoskeletal: reports: None, Other Derm: reports: None MRSA Hx?: No - Past Surgical History General: reports: Cholecystectomy, Appendectomy Ortho: reports: Other /ANESTHESIA ASSISTANT: reports: Hysterectomy, Mastectomy - POLST Patient has POLST: No Meds/Allgy - Home Medications Home Medications: Ambulatory Orders Medication Instructions Recorded Confirmed Quetiapine Fumarate [Seroquel] 25 mg PO BID 05/27/18 01/19/22 Anastrozole [Arimidex] 1 mg PO DAILY #90 tab 01/28/20 01/19/22 Furosemide [Lasix] 40 mg PO BID 10/03/21 01/19/22 Mirtazapine 30 mg PO DAILY 12/08/21 01/19/22 Potassium Chloride [Micro-K] 10 meq PO DAILY 12/08/21 01/19/22 Tiotropium [place] [Spiriva] 1 cap NEB DAILY 12/08/21 01/19/22 metFORMIN [Glucophage] 500 mg PO BID 12/08/21 01/19/22 Albuterol Sulf [Ventolin Hfa 2 puffs PO Q6HR PRN 01/12/22 01/12/22 Inhaler] Insulin Glargine [Lantus Solostar] 12 unit SQ DAILY PRN 01/12/22 01/19/22 Oxycodone HCl 10 mg PO BID 01/12/22 01/12/22 - Allergies Allergies/Adverse Reactions: Allergies Allergy/AdvReac Type Severity Reaction Status Date / Time No Known Drug Allergies Allergy Verified 10/31/21 07:49 Review of Systems - Other Findings Other Findings: 10 pt ros as above otherwise unremarkable Exam - Vital Signs Vital Signs: Vital Signs x48h Temp Pulse Resp BP Pulse Ox 01/19/22 06:28 36.2 C L 108 H 20 143/90 H 96 - Physical Exam General Appearance: positive: No acute distress, Alert Eyes Bilateral: positive: PERRL ENT: positive: No signs of dehydration Neck: positive: No JVD, Trachea midline Respiratory: positive: No respiratory distress, Breath sounds nml Cardiovascular: positive: Regular rate & rhythm Abdomen: positive: Non-tender, No distention Neurologic/Psychiatric: positive: Oriented x3 Conclusion/Plan - Problem List (1) History of colon polyps Conclusion/Plan: plan colonoscopy mild trouble swallowing. plan egd parq held and consent obtained
[2022-01-19] MEDS ORDERED: PROPOFOL 200 MG/20 ML VIAL IVP ONE ×2 (07:37→08:39)
[2022-01-19] MEDS ORDERED: PROPOFOL 500 MG/50 ML 500 MG/50 ML VIAL ONE (07:37)
[2022-01-19] MEDS ORDERED: LIDOCAINE-MPF 2% 5 ML VIAL ONE (07:40)
[2022-01-19] MEDS ORDERED: KETAMINE 500 MG/10 ML VIAL ONE (07:41)
[2022-01-19] MEDS ORDERED: LACTATED RINGERS 700 ML IV ONE (08:53)
[2022-01-19] MEDS ORDERED: ONDANSETRON 4 MG/2 ML VIAL ONE (09:03)
[2022-01-19] MEDS ORDERED: METOCLOPRAMIDE 10 MG/2 ML VIAL ONE (09:19)
[2022-01-19 09:27] VITALS: BP 142/84
--- NOTE | 2022-01-19 16:48 | ANESTHESIA POST OP EVALUATION ---
Anesthesia Post Eval - Post Anesthesia Eval Vitals: Last Vital Signs Temp 36.6 C 01/19/22 09:15 Pulse 98 01/19/22 09:15 Resp 18 01/19/22 09:15 BP 142/84 H 01/19/22 09:15 Pulse Ox 95 01/19/22 09:15 O2 Flow Rate CV Function Including HR & BP: Stable Pain Control: Satisfactory Nausea & Vomiting: Negative Mental Status: Baseline Respiratory Status: Airway Patent Hydration Status: Satisfactory Anesthesia Complications: None
== END 2022-01-19 06:21 | disposition home or self-care (01) ==
LOC: SDS 06:20
PROVIDERS: ATTEND Surgery
PROC: 0DB28ZZ Excision of Middle Esophagus, Via Natural or Artificial Opening Endoscopic (ICD-10-PCS; 2022-01-19)
PROC: 0DBP8ZX Excision of Rectum, Via Natural or Artificial Opening Endoscopic, Diagnostic (ICD-10-PCS; principal; 2022-01-19 07:30)
PROC: 0DB38ZZ Excision of Lower Esophagus, Via Natural or Artificial Opening Endoscopic (ICD-10-PCS; 2022-01-19 07:30)
DX: R13.10 Dysphagia, unspecified (principal); K21.9 Gastro-esophageal reflux disease without esophagitis; K57.30 Diverticulosis of large intestine without perforation or abscess without bleeding; K62.1 Rectal polyp; K64.4 Residual hemorrhoidal skin tags; K64.8 Other hemorrhoids; E11.9 Type 2 diabetes mellitus without complications; J44.9 Chronic obstructive pulmonary disease, unspecified; I50.9 Heart failure, unspecified; H91.90 Unspecified hearing loss, unspecified ear; F32.A Depression, unspecified; F41.9 Anxiety disorder, unspecified; E66.9 Obesity, unspecified; Z68.38 Body mass index [BMI] 38.0-38.9, adult; Z79.84 Long term (current) use of oral hypoglycemic drugs; Z79.4 Long term (current) use of insulin; Z85.3 Personal history of malignant neoplasm of breast; Z85.42 Personal history of malignant neoplasm of other parts of uterus; Z86.010 Personal history of colon polyps; Z90.10 Acquired absence of unspecified breast and nipple; Z90.49 Acquired absence of other specified parts of digestive tract; Z90.710 Acquired absence of both cervix and uterus
CPT/HCPCS: 43239; 45380; J2765; J7120

== ENCOUNTER 2022-07-21 09:37 | Outpatient (CLI) | payer MEDICARE, OTHER ==
[2022-07-21 09:52] LABS: BASOPHILS % (AUTO) 0.4 %; EOSINOPHILS # (AUTO) 0.2 10^3/uL (0.0-0.7); EOSINOPHILS % (AUTO) 2.8 %; HCT - HEMATOCRIT 41.6 % (37.0-47.0); HGB - HEMOGLOBIN 13.6 g/dL (12.0-16.0); LYMPHOCYTES # (AUTO) 2.9 10^3/uL (1.5-3.5); LYMPHOCYTES % (AUTO) 37.4 %; MEAN CORPUSCULAR HEMOGLOBIN 30.3 pg (27.0-31.0); MEAN CORPUSCULAR HGB CONC 32.7 g/dL (32.0-36.0); MEAN CORPUSCULAR VOLUME 92.7 fL (81.0-99.0); MEAN PLATELET VOLUME 9.5 fL (7.9-10.8); MONOCYTES # (AUTO) 0.6 10^3/uL (0.0-1.0); MONOCYTES % (AUTO) 7.9 %; NEUTROPHILS % (AUTO) 51.4 %; PLT - PLATELET COUNT 232 10^3/uL (130-450); RED BLOOD COUNT 4.49 10^6/uL (4.20-5.40); WHITE BLOOD COUNT 7.8 x10^3/uL (4.8-10.8)
[2022-07-21 10:20] LABS: CREATININE,URINE 155.2 mg/dL; MICROALBUM/CREATININE RATIO,UR 7.1 ug/mg (<30.0); MICROALBUMIN,URINE 1.1 mg/dL (0-300.0)
[2022-07-21 10:22] LABS: ALBUMIN 3.7 g/dL (3.2-5.5); ALBUMIN/GLOBULIN RATIO 1.1 (1.0-2.2); ALKALINE PHOSPHATASE 84 IU/L (42-121); ALT ALANINE AMINOTRANSFERASE 16 IU/L (10-60); AST ASPARTATE AMINOTRANSFERASE 16 IU/L (10-42); BILIRUBIN,TOTAL 0.5 mg/dL (0.2-1.0); BUN - BLOOD UREA NITROGEN 20 mg/dL (6-20); CALCIUM 9.1 mg/dL (8.5-10.3); CARBON DIOXIDE - CO2 23 mmol/L (21-32); CHLORIDE 109 mmol/L (101-111); CHOLESTEROL 169 mg/dL; CREATININE 0.7 mg/dL (0.4-1.0); GFR - MDRD 82 (>89); GLUCOSE 135 mg/dL (70-100); HDL CHOLESTEROL 34 mg/dL; LDL CHOLESTEROL,CALCULATED 102 mg/dL; POTASSIUM 4.1 mmol/L (3.5-5.0); SODIUM 141 mmol/L (135-145); TOTAL PROTEIN 7.1 g/dL (6.7-8.2); TRIGLYCERIDES 165 mg/dL; VLDL CHOLESTEROL 33 mg/dL
[2022-07-21 10:32] LABS: THYROID STIMULATING HORMONE 4.76 uIU/mL (0.34-5.60)
[2022-07-21 10:34] LABS: ESTIMATED AVERAGE GLUCOSE 126 mg/dL (70-100)
== END 2022-07-21 09:38 | disposition home or self-care (01) ==
LOC: LAB 09:37
PROVIDERS: ATTEND Nurse Practitioner
DX: I50.9 Heart failure, unspecified (principal); Z13.220 Encounter for screening for lipoid disorders; E11.9 Type 2 diabetes mellitus without complications; F41.9 Anxiety disorder, unspecified; F32.A Depression, unspecified
CPT/HCPCS: 36415; 80053; 80061; 82043; 82570; 83036; 83721; 84443; 85025

== ENCOUNTER 2022-08-10 11:36 | Outpatient (CLI) | payer MEDICARE, OTHER ==
--- NOTE | 2022-08-10 15:21 | CT Report ---
PROCEDURE: Low Dose Lung Cancer Screen INDICATIONS: SMOKER TECHNIQUE: Noncontrast low-dose axial images were acquired from the pulmonary apices to the posterior costophren ic angles. Multiplanar MIP reformats were then reconstructed. For radiation dose reduction, the follo wing was used: automated exposure control, adjustment of mA and/or kV according to patient size. COMPARISON: CT head without, 08/02/2020, 08/05/2019 and 08/05/2018. FINDINGS: Image quality: Excellent. Lungs and pleura: There are multiple lung nodules bilaterally, new since the last CT dated 08/02/2020 . Reference nodules are listed in following: Nodule 1: 1 cm; subsolid; left upper lobe; series 4 image 84. Nodule 2: 0.4 cm nodule; solid; left major fissure; series 4 image 171. Nodule 3: 0.3 cm; subsolid; right upper lobe anterior; series 4 image 75. Nodule 4: 0.4 cm; groundglass; right upper lobe posterior; series 4 image 87. Nodule 5: 0.4 cm; groundglass; right upper lobe; series 4 image 90. No acute pulmonary opacities. No pleural effusions. No pneumothorax. No suspicious pulmonary nodules which require follow up. Mediastinum: Heart size is normal. Mild coronary calcification. No pericardial effusions. No mediasti nal adenopathy by size criteria. No large vessel abnormality. Small hiatal hernia. Chest wall and lower neck: Thyroid is unremarkable. No axillary or supraclavicular adenopathy by size . Right mastectomy. Bones: No aggressive osseous abnormality. There is a subacute left ninth rib fracture. Upper Abdomen: Unremarkable. Cholecystectomy. IMPRESSION: There are multiple new lung nodules bilaterally, mainly in upper lobes. The largest nodul e measures 1 cm in the left upper lobe. Most nodules are subsolid. Differential diagnoses are infecti on, inflammatory nodules and neoplasm such as metastatic disease. The patient has history of breast c ancer and right mastectomy. Recommend a short-term follow-up CT in 3 months. Alternatively, PET/CT ca n be obtained. Lung RAD: 4 Recommendation: Short-term follow-up CT recommended in 3 months. Continued annual screening lung CT. Reviewed by: Padma Ibrahim MD on 08/10/2022 3:20 PM PDT Approved by: Padma Ibrahim MD on 08/10/2022 3:20 PM PDT Station ID: [id number]
== END 2022-08-10 11:37 | disposition home or self-care (01) ==
LOC: DI 11:36
PROVIDERS: ATTEND Nurse Practitioner
DX: Z12.2 Encounter for screening for malignant neoplasm of respiratory organs (principal); F17.210 Nicotine dependence, cigarettes, uncomplicated; R91.8 Other nonspecific abnormal finding of lung field; Z85.3 Personal history of malignant neoplasm of breast; Z90.11 Acquired absence of right breast and nipple

== ENCOUNTER 2022-08-15 15:25 | Outpatient (CLI) | payer MEDICARE, OTHER ==
--- NOTE | 2022-08-16 10:04 | Mammography Report ---
UNILATERAL LEFT DIGITAL SCREENING MAMMOGRAM 3D/2D: 08/15/2022 CLINICAL: Routine screening. Personal history of right breast cancer. Comparison is made to exams dated: 02/16/2021 mammogram, 12/31/2019 mammogram, and 11/18/2018 mammogram - [facility]. There are scattered areas of fibroglandular density in the left breast (category b / 25%-50% glandula r tissue). No significant masses, calcifications, or other findings are seen in the breast. There has been no significant interval change. IMPRESSION: NEGATIVE There is no mammographic evidence of malignancy. A 1 year screening mammogram is recommended. This exam was interpreted at Station ID: [id number]. NOTE: For mammograms, a report in lay terms will be sent to the patient. Approximately 15% of breast malignancies will not be visualized mammographically. In the management of a palpable breast mass, a negative mammogram must not discourage biopsy of a clinically suspicious lesion. Electronically Signed By: Ramon whatley/anitha:08/16/2022 07:52:43 letter sent: No_Letter ACR BI-RADS Category 1: Negative 3341F PARENCHYMAL PATTERN: (A) - The breast(s) demonstrate(s) scattered fibroglandular densities. BI-RADS CATEGORY: (1) - 1 Mammogram [id number] 1 year screening LATERALITY: (B)
== END 2022-08-15 15:26 | disposition home or self-care (01) ==
LOC: DI 15:25
PROVIDERS: ATTEND Nurse Practitioner
DX: Z12.31 Encounter for screening mammogram for malignant neoplasm of breast (principal); Z85.3 Personal history of malignant neoplasm of breast; Z90.11 Acquired absence of right breast and nipple

== ENCOUNTER 2022-09-11 22:57 | Outpatient (CLI) | payer MEDICARE, OTHER | END 2022-09-11 22:58 | disposition critical access hospital (66) | LOC: EMS 22:57 | DX: R53.1 Weakness (principal); R50.9 Fever, unspecified | CPT/HCPCS: A0425; A0429 ==

== ENCOUNTER 2022-09-11 23:11 | Emergency (ER) | payer MEDICARE, OTHER ==
--- OUTSIDE RECORDS SUMMARY | 2022-09-11 23:22 | EXTERNAL MEDICAL SUMMARY RPT | Continuity of Care Document ---
Author Name Unknown Address [address] [place] [address] Phone Organization [facility] Address [address] [place] [address] Phone Care Team Providers Care Roof Service Technician Name Role Phone Emmett Early Unavailable Unavailable Allergies and Intolerances date description facility type (no date) No Known Drug Allergies [facility] ( unknown) Problems date description facility 2022-07-27 12:14 Malignant neoplasm o f unspecified site of right [facility] 2022-07-27 12:14 Malignant neoplasm o f unspecified site of unspecified [facility] 2022-07-27 12:14 Secondary and unspec ified malignant neoplasm of axilla and [facility] 2022-07-27 12:14 Estrogen receptor positive stat us [ER+] [facility] 2022-07-31 10:20 Malignant neoplasm o f unspecified site of right [facility] 2022-07-31 10:20 Malignant neoplasm o f unspecified site of unspecified [facility] 2022-07-31 10:20 Secondary and unspec ified malignant neoplasm of axilla and [facility] 2022-07-31 10:20 Estrogen receptor positive stat us [ER+] [facility] 2022-07-31 11:40 Malignant neoplasm o f unspecified site of right [facility] 2022-07-31 11:40 Malignant neoplasm o f unspecified site of unspecified [facility] 2022-07-31 11:40 Secondary and unspec ified malignant neoplasm of axilla and [facility] 2022-07-31 11:40 Estrogen receptor positive stat us [ER+] [facility] 2022-09-03 00:00 Blurring of visual image [facility] 2022-09-03 00:00 Cough [facility] 2022-09-03 00:00 [facility] Procedures date description facility 2022-09-03 00:00 X-ray of chest, single [facility] Results/Labs test date author facility value unit interpretation Result panel 1 (unknown) (no date) (unknown) [facility] (no value) (units unknown) (unknown) Result panel 2 (unknown) (no date) (unknown) [facility] (no value) (units unknown) (unknown) Result panel 3 (unknown) (no date) (unknown) [facility] (no value) (units unknown) (unknown) Result panel 4 (unknown) (no date) (unknown) [facility] (no value) (units unknown) (unknown) Result panel 5 (unknown) (no date) (unknown) [facility] (no value) (units unknown) (unknown) Result panel 6 (unknown) (no date) (unknown) [facility] (no value) (units unknown) (unknown) Result panel 7 (unknown) (no date) (unknown) [facility] (no value) (units unknown) (unknown) Result panel 8 (unknown) (no date) (unknown) [facility] (no value) (units unknown) (unknown) Result panel 9 (unknown) (no date) (unknown) [facility] (no value) (units unknown) (unknown) Result panel 10 (unknown) (no date) (unknown) [facility] (no value) (units unknown) (unknown) Result panel 11 (unknown) (no date) (unknown) [facility] (no value) (units unknown) (unknown) Result panel 12 (unknown) (no date) (unknown) [facility] (no value) (units unknown) (unknown) Result panel 13 (unknown) (no date) (unknown) [facility] (no value) (units unknown) (unknown) Result panel 14 (unknown) (no date) (unknown) [facility] (no value) (units unknown) (unknown) Result panel 15 (unknown) (no date) (unknown) [facility] (no value) (units unknown) (unknown) Result panel 16 (unknown) (no date) (unknown) [facility] (no value) (units unknown) (unknown) Result panel 17 (unknown) (no date) (unknown) [facility] (no value) (units unknown) (unknown) Result panel 18 (unknown) (no date) (unknown) [facility] (no value) (units unknown) (unknown) Result panel 19 (unknown) (no date) (unknown) [facility] (no value) (units unknown) (unknown) Result panel 20 (unknown) (no date) (unknown) [facility] (no value) (units unknown) (unknown) Result panel 21 (unknown) (no date) (unknown) [facility] (no value) (units unknown) (unknown) Result panel 22 (unknown) (no date) (unknown) [facility] (no value) (units unknown) (unknown) Result panel 23 (unknown) (no date) (unknown) [facility] (no value) (units unknown) (unknown) Result panel 24 (unknown) (no date) (unknown) [facility] (no value) (units unknown) (unknown) Result panel 25 (unknown) (no date) (unknown) [facility] (no value) (units unknown) (unknown) Result panel 26 (unknown) (no date) (unknown) [facility] (no value) (units unknown) (unknown) Result panel 27 (unknown) (no date) (unknown) [facility] (no value) (units unknown) (unknown) Result panel 28 (unknown) (no date) (unknown) [facility] (no value) (units unknown) (unknown) Result panel 29 (unknown) (no date) (unknown) [facility] (no value) (units unknown) (unknown) Result panel 30 (unknown) (no date) (unknown) [facility] (no value) (units unknown) (unknown) Result panel 31 (unknown) (no date) (unknown) [facility] (no value) (units unknown) (unknown) Result panel 32 (unknown) (no date) (unknown) [facility] (no value) (units unknown) (unknown) Result panel 33 (unknown) (no date) (unknown) [facility] (no value) (units unknown) (unknown) Result panel 34 (unknown) (no date) (unknown) [facility] (no value) (units unknown) (unknown) Result panel 35 (unknown) (no date) (unknown) [facility] (no value) (units unknown) (unknown) Result panel 36 (unknown) (no date) (unknown) [facility] (no value) (units unknown) (unknown) Result panel 37 (unknown) (no date) (unknown) [facility] (no value) (units unknown) (unknown) Result panel 38 (unknown) (no date) (unknown) [facility] (no value) (units unknown) (unknown) Result panel 39 (unknown) (no date) (unknown) [facility] (no value) (units unknown) (unknown) Result panel 40 (unknown) (no date) (unknown) [facility] (no value) (units unknown) (unknown) Result panel 41 (unknown) (no date) (unknown) [facility] (no value) (units unknown) (unknown) Result panel 42 (unknown) (no date) (unknown) [facility] (no value) (units unknown) (unknown) Result panel 43 (unknown) (no date) (unknown) [facility] (no value) (units unknown) (unknown) Result panel 44 (unknown) (no date) (unknown) [facility] (no value) (units unknown) (unknown) Result panel 45 (unknown) (no date) (unknown) [facility] (no value) (units unknown) (unknown) Result panel 46 (unknown) (no date) (unknown) [facility] (no value) (units unknown) (unknown) Result panel 47 (unknown) (no date) (unknown) [facility] (no value) (units unknown) (unknown) Result panel 48 (unknown) (no date) (unknown) [facility] (no value) (units unknown) (unknown) Result panel 49 (unknown) (no date) (unknown) [facility] (no value) (units unknown) (unknown) Result panel 50 (unknown) (no date) (unknown) [facility] (no value) (units unknown) (unknown) Result panel 51 (unknown) (no date) (unknown) [facility] (no value) (units unknown) (unknown) Result panel 52 (unknown) (no date) (unknown) [facility] (no value) (units unknown) (unknown) Result panel 53 (unknown) (no date) (unknown) [facility] (no value) (units unknown) (unknown) Result panel 54 (unknown) (no date) (unknown) [facility] (no value) (units unknown) (unknown) Result panel 55 (unknown) (no date) (unknown) [facility] (no value) (units unknown) (unknown) Result panel 56 (unknown) (no date) (unknown) [facility] (no value) (units unknown) (unknown) Result panel 57 (unknown) (no date) (unknown) [facility] (no value) (units unknown) (unknown) Result panel 58 (unknown) (no date) (unknown) [facility] (no value) (units unknown) (unknown) Result panel 59 (unknown) (no date) (unknown) [facility] (no value) (units unknown) (unknown) Result panel 60 (unknown) (no date) (unknown) [facility] (no value) (units unknown) (unknown) Result panel 61 (unknown) (no date) (unknown) [facility] (no value) (units unknown) (unknown) Result panel 62 (unknown) (no date) (unknown) [facility] (no value) (units unknown) (unknown) Result panel 63 (unknown) (no date) (unknown) [facility] (no value) (units unknown) (unknown) Result panel 64 (unknown) (no date) (unknown) [facility] (no value) (units unknown) (unknown) Result panel 65 (unknown) (no date) (unknown) [facility] (no value) (units unknown) (unknown) Result panel 66 (unknown) (no date) (unknown) [facility] (no value) (units unknown) (unknown) Result panel 67 (unknown) (no date) (unknown) [facility] (no value) (units unknown) (unknown) Result panel 68 (unknown) (no date) (unknown) [facility] (no value) (units unknown) (unknown) Result panel 69 (unknown) (no date) (unknown) [facility] (no value) (units unknown) (unknown) Result panel 70 (unknown) (no date) (unknown) [facility] (no value) (units unknown) (unknown) Result panel 71 (unknown) (no date) (unknown) [facility] (no value) (units unknown) (unknown) Result panel 72 (unknown) (no date) (unknown) [facility] (no value) (units unknown) (unknown) Result panel 73 (unknown) (no date) (unknown) [facility] (no value) (units unknown) (unknown) Result panel 74 (unknown) (no date) (unknown) [facility] (no value) (units unknown) (unknown) Result panel 75 (unknown) (no date) (unknown) [facility] (no value) (units unknown) (unknown) Result panel 76 (unknown) (no date) (unknown) [facility] (no value) (units unknown) (unknown) Result panel 77 (unknown) (no date) (unknown) [facility] (no value) (units unknown) (unknown) Result panel 78 (unknown) (no date) (unknown) [facility] (no value) (units unknown) (unknown) Result panel 79 (unknown) (no date) (unknown) [facility] (no value) (units unknown) (unknown) Result panel 80 (unknown) (no date) (unknown) [facility] (no value) (units unknown) (unknown) Result panel 81 (unknown) (no date) (unknown) (unknown) 0.8 % (unknown ) (unknown) (no date) (unknown) (unknown) 100 /ul (unknown ) (unknown) (no date) (unknown) (unknown) 14.0 g/dl (unknown ) (unknown) (no date) (unknown) (unknown) 14.8 % (unknown ) (unknown) (no date) (unknown) (unknown) 2.8 % (unknown ) (unknown) (no date) (unknown) (unknown) 256 x10 3/ul (unknow n) (unknown) (no date) (unknown) (unknown) 2700 /ul (unknown ) (unknown) (no date) (unknown) (unknown) 28.5 % (unknown ) (unknown) (no date) (unknown) (unknown) 30.6 pg (unknown ) (unknown) (no date) (unknown) (unknown) 300 /ul (unknown ) (unknown) (no date) (unknown) (unknown) 33.9 % (unknown ) (unknown) (no date) (unknown) (unknown) 4.57 x10 6/ul (unknow n) (unknown) (no date) (unknown) (unknown) 41.3 % (unknown ) (unknown) (no date) (unknown) (unknown) 5700 /ul (unknown ) (unknown) (no date) (unknown) (unknown) 60.5 % (unknown ) (unknown) (no date) (unknown) (unknown) 7.4 % (unknown ) (unknown) (no date) (unknown) (unknown) 700 /ul (unknown ) (unknown) (no date) (unknown) (unknown) 9.3 x10 3/ul (unknow n) (unknown) (no date) (unknown) (unknown) 90.3 fl (unknown ) Result panel 82 (unknown) (no date) (unknown) (unknown) > 60 ml/min (unknown ) (unknown) (no date) (unknown) (unknown) > 60 ml/min (unknown ) (unknown) (no date) (unknown) (unknown) 0.5 mg/dl (unknown ) (unknown) (no date) (unknown) (unknown) 0.62 mg/dl (unknown ) (unknown) (no date) (unknown) (unknown) 1.2 (units unknown) (unknown) (unknown) (no date) (unknown) (unknown) 103 mmol/l (unknown ) (unknown) (no date) (unknown) (unknown) 122 mg/dl (unknown ) (unknown) (no date) (unknown) (unknown) 122 mg/dl (unknown ) (unknown) (no date) (unknown) (unknown) 139 mmol/l (unknown ) (unknown) (no date) (unknown) (unknown) 16 mg/dl (unknown ) (unknown) (no date) (unknown) (unknown) 20 iu/l (unknown ) (unknown) (no date) (unknown) (unknown) 22 iu/l (unknown ) (unknown) (no date) (unknown) (unknown) 25.8 (units unknown) (unknown) (unknown) (no date) (unknown) (unknown) 29 mmol/l (unknown ) (unknown) (no date) (unknown) (unknown) 3.5 g/dl (unknown ) (unknown) (no date) (unknown) (unknown) 4.2 g/dl (unknown ) (unknown) (no date) (unknown) (unknown) 4.6 mmol/l (unknown ) (unknown) (no date) (unknown) (unknown) 7.7 g/dl (unknown ) (unknown) (no date) (unknown) (unknown) 9.4 mg/dl (unknown ) (unknown) (no date) (unknown) (unknown) 94 u/l (unknown ) Result panel 83 (unknown) (no date) (unknown) (unknown) (no value) (units unknown) (unknown) (unknown) (no date) (unknown) (unknown) 09/03/22 (units unknown) (unknown) (unknown) (no date) (unknown) (unknown) [address] (un its unknown) (unknown) (unknown) (no date) (unknown) (unknown) [id number] (units unknown) (unknown) (unknown) (no date) (unknown) (unknown) Accession Numb er: [phone] (units unknown) (unknown) (unknown) (no date) (unknown) (unknown) Age/Sex: 71 / F Date of Service: (units unknown) (unknown) (unknown) (no date) (unknown) ([place]) [place] [address] (units unknown) (unknown) (unknown) (no date) (unknown) (unknown) Approved by: Sathish Rios M.D. on 09/03/2022 at 14:15 (units unknown) (unknown) (unknown) (no date) (unknown) (unknown) Bones and ches t wall: No suspicious bony lesions. Overlying soft tissues (units unknown) (unknown) (unknown) (no date) (unknown) (unknown) COMPARISON: None. (u nits unknown) (unknown) (unknown) (no date) (unknown) (unknown) : 0 Acct:[id number] (units unknown) (unknown) (unknown) (no date) (unknown) (unknown) Dictated by: Sathish Rios M.D. on 09/03/2022 at 14:15 (units unknown) (unknown) (unknown) (no date) (unknown) (unknown) FINDINGS: (units unknown) (unknown) (unknown) (no date) (unknown) (unknown) IMPRESSION: No acute pulmonary process. (units unknown) (unknown) (unknown) (no date) (unknown) (unknown) INDICATIONS: cough ( units unknown) (unknown) (unknown) (no date) (unknown) (unknown) [facility] (uni ts unknown) (unknown) (unknown) (no date) (unknown) (unknown) Loc: ED (units unknown) (unknown) (unknown) (no date) (unknown) (unknown) Lungs and pleu ra: Lungs are clear. No pleural effusions or pneumothorax. (units unknown) (unknown) (unknown) (no date) (unknown) (unknown) Mediastinum: Mediastinal contours appear normal. Heart size is normal. (units unknown) (unknown) (unknown) (no date) (unknown) (unknown) Ordering Provi jessica: Alida Fischer D.O. (units unknown) (unknown) (unknown) (no date) (unknown) (unknown) PROCEDURE: XR CHEST 1V (units unknown) (unknown) (unknown) (no date) (unknown) (unknown) Patient: Milagros Kaiser MR#: [id number] (units unknown) (unknown) (unknown) (no date) (unknown) (unknown) Procedure: XR chest 1V (units unknown) (unknown) (unknown) (no date) (unknown) (unknown) Signed (units unknown) (unknown) (unknown) (no date) (unknown) (unknown) Surgical [place] es and devices: Partially visualized left shoulder arthroplasty. (units unknown) (unknown) (unknown) (no date) (unknown) (unknown) TECHNIQUE: One view of the chest was acquired. (units unknown) (unknown) (unknown) (no date) (unknown) (unknown) XRay Report (units unknown) (unknown) (unknown) (no date) (unknown) (unknown) appear (units unknown) (unknown) (unknown) (no date) (unknown) (unknown) unremarkable. (units unknown) (unknown) Result panel 84 (unknown) (no date) (unknown) (unknown) Flu A NEGATIVE (unit s unknown) (unknown) (unknown) (no date) (unknown) (unknown) Flu B NEGATIVE (unit s unknown) (unknown) (unknown) (no date) (unknown) (unknown) Negative (units unknown) (unknown) (unknown) (no date) (unknown) (unknown) Negative (units unknown) (unknown) Result panel 85 (unknown) (no date) (unknown) (unknown) (no value) (units unknown) (unknown) (unknown) (no date) (unknown) (unknown) 09/03/22 14:01 (unit s unknown) (unknown) (unknown) (no date) (unknown) (unknown) 09/03/22 14:03 (unit s unknown) (unknown) (unknown) (no date) (unknown) (unknown) 09/03/22 Range/Units (units unknown) (unknown) (unknown) (no date) (unknown) (unknown) 09/03/22 (units unknown) (unknown) (unknown) (no date) (unknown) (unknown) 01/25/22 (units unknown) (unknown) (unknown) (no date) (unknown) (unknown) 1 cap INHALATI ON DAILY (units unknown) (unknown) (unknown) (no date) (unknown) (unknown) 1 mg PO DAILY Qty: 30 11RF (units unknown) (unknown) (unknown) (no date) (unknown) (unknown) 1 tab PO DAILY (unit s unknown) (unknown) (unknown) (no date) (unknown) (unknown) 1,000 unit DAILY (un its unknown) (unknown) (unknown) (no date) (unknown) (unknown) 13:58 09/03/22 (unit s unknown) (unknown) (unknown) (no date) (unknown) (unknown) 14:03 (units unknown) (unknown) (unknown) (no date) (unknown) (unknown) 17:43 (units unknown) (unknown) (unknown) (no date) (unknown) (unknown) 2 puff INHALAT ION Q6H PRN (Reason: Wheezing) (units unknown) (unknown) (unknown) (no date) (unknown) (unknown) 2 spray INTRAN MIAH DAILY (units unknown) (unknown) (unknown) (no date) (unknown) (unknown) 25 mg PO DAILY (unit s unknown) (unknown) (unknown) (no date) (unknown) (unknown) 30 mg PO DAILY (unit s unknown) (unknown) (unknown) (no date) (unknown) (unknown) 40 mg PO PRN P RN (Reason: Edema) (units unknown) (unknown) (unknown) (no date) (unknown) (unknown) 50 mg PO BEDTIME (un its unknown) (unknown) (unknown) (no date) (unknown) (unknown) 500 mg PO DAILY (uni ts unknown) (unknown) (unknown) (no date) (unknown) (unknown) 6101 (units unknown) (unknown) (unknown) (no date) (unknown) (unknown) Age/Sex: 71 / F (uni ts unknown) (unknown) (unknown) (no date) (unknown) (unknown) Allergies (units unknown) (unknown) (unknown) (no date) (unknown) (unknown) Allergy/AdvRea c Type Severity Reaction Status Date / Time (units unknown) (unknown) (unknown) (no date) (unknown) (unknown) Blood Pressure 136/99 H 09/03/22 13:58 (units unknown) (unknown) (unknown) (no date) (unknown) (unknown) Blood Pressure 136/99 H 131/82 (units unknown) (unknown) (unknown) (no date) (unknown) (unknown) CT last month with her primary care for her regular lung cancer screening and (units unknown) (unknown) (unknown) (no date) (unknown) (unknown) Chief Complain t: Upper Respiratory Symptoms (units unknown) (unknown) (unknown) (no date) (unknown) (unknown) Course (units unknown) (unknown) (unknown) (no date) (unknown) (unknown) Covid-19 + FLU A/B + RSV - PCR Stat (units unknown) (unknown) (unknown) (no date) (unknown) (unknown) D3) (units unknown) (unknown) (unknown) (no date) (unknown) (unknown) : 0 Acct:[id number] (units unknown) (unknown) (unknown) (no date) (unknown) (unknown) Date of Servic e: 09/03/22 (units unknown) (unknown) (unknown) (no date) (unknown) (unknown) Departure (units unknown) (unknown) (unknown) (no date) (unknown) (unknown) Discharge Plan (unit s unknown) (unknown) (unknown) (no date) (unknown) (unknown) ED Orders (units unknown) (unknown) (unknown) (no date) (unknown) (unknown) ER Physician: Sintia Salas (units unknown) (unknown) (unknown) (no date) (unknown) (unknown) Emergency Report (un its unknown) (unknown) (unknown) (no date) (unknown) (unknown) Exam (units unknown) (unknown) (unknown) (no date) (unknown) (unknown) General (units unknown) (unknown) (unknown) (no date) (unknown) (unknown) HPI - URI/Sore Throat (units unknown) (unknown) (unknown) (no date) (unknown) (unknown) HPI Narrative: (unit s unknown) (unknown) (unknown) (no date) (unknown) (unknown) History of Pre sent Illness (units unknown) (unknown) (unknown) (no date) (unknown) (unknown) Home Medications (un its unknown) (unknown) (unknown) (no date) (unknown) (unknown) Influenza A (RT-PCR) Flu a negative (NEGATIVE) (units unknown) (unknown) (unknown) (no date) (unknown) (unknown) Influenza B (RT-PCR) Flu b negative (NEGATIVE) (units unknown) (unknown) (unknown) (no date) (unknown) (unknown) Initial Vital Signs (units unknown) (unknown) (unknown) (no date) (unknown) (unknown) Initial Vital Signs: (units unknown) (unknown) (unknown) (no date) (unknown) (unknown) [facility] [address] [place] [id number] (units unknown) (unknown) (unknown) (no date) (unknown) (unknown) Lab Data (units unknown) (unknown) (unknown) (no date) (unknown) (unknown) Lab Results (units unknown) (unknown) (unknown) (no date) (unknown) (unknown) Labs: (units unknown) (unknown) (unknown) (no date) (unknown) (unknown) MDM - URI/Sore Throat (units unknown) (unknown) (unknown) (no date) (unknown) (unknown) Medication Instructions Recorded Confirmed (units unknown) (unknown) (unknown) (no date) (unknown) (unknown) Medication Instructions Recorded (units unknown) (unknown) (unknown) (no date) (unknown) (unknown) No Action (units unknown) (unknown) (unknown) (no date) (unknown) (unknown) No Known Drug Allergies Allergy Verified 07/11/21 17:53 (units unknown) (unknown) (unknown) (no date) (unknown) (unknown) Ordered: (units unknown) (unknown) (unknown) (no date) (unknown) (unknown) Orders (units unknown) (unknown) (unknown) (no date) (unknown) (unknown) Oxygen Deliver y Method Room Air 09/03/22 13:58 (units unknown) (unknown) (unknown) (no date) (unknown) (unknown) Oxygen Deliver y Method Room Air Room Air (units unknown) (unknown) (unknown) (no date) (unknown) (unknown) PO (units unknown) (unknown) (unknown) (no date) (unknown) (unknown) Patient History (uni ts unknown) (unknown) (unknown) (no date) (unknown) (unknown) Patient is a 71-year-old female with COPD, CHF, history of breast cancer in (units unknown) (unknown) (unknown) (no date) (unknown) (unknown) Patient: Milagros Kaiser MR#: [id number] (units unknown) (unknown) (unknown) (no date) (unknown) (unknown) Prescriptions: (unit s unknown) (unknown) (unknown) (no date) (unknown) (unknown) Previous Rx's (units unknown) (unknown) (unknown) (no date) (unknown) (unknown) Pulse Oximetry 96 09/03/22 13:58 (units unknown) (unknown) (unknown) (no date) (unknown) (unknown) Pulse Oximetry 96 99 (units unknown) (unknown) (unknown) (no date) (unknown) (unknown) Pulse Rate 87 09/03/22 13:58 (units unknown) (unknown) (unknown) (no date) (unknown) (unknown) Pulse Rate 87 89 (un its unknown) (unknown) (unknown) (no date) (unknown) (unknown) RSV (PCR) Nega tive (Negative) (units unknown) (unknown) (unknown) (no date) (unknown) (unknown) Related Data (units unknown) (unknown) (unknown) (no date) (unknown) (unknown) Respiratory Ra te 16 09/03/22 13:58 (units unknown) (unknown) (unknown) (no date) (unknown) (unknown) Respiratory Ra te 16 18 (units unknown) (unknown) (unknown) (no date) (unknown) (unknown) SARS-CoV-2 (PC R) Negative (Negative) (units unknown) (unknown) (unknown) (no date) (unknown) (unknown) Signed By: (units unknown) (unknown) (unknown) (no date) (unknown) (unknown) Smoking Status : Current every day smoker (units unknown) (unknown) (unknown) (no date) (unknown) (unknown) Social History (units unknown) (unknown) (unknown) (no date) (unknown) (unknown) Spiriva with HandiHaler 18 mcg Capsule, W/Inhalation Device (units unknown) (unknown) (unknown) (no date) (unknown) (unknown) Stated Complai nt: weak chest pain back pain cough (units unknown) (unknown) (unknown) (no date) (unknown) (unknown) Substance Use Type: does not use (units unknown) (unknown) (unknown) (no date) (unknown) (unknown) Temperature 97 F L 09/03/22 13:58 (units unknown) (unknown) (unknown) (no date) (unknown) (unknown) Temperature 97 F L ( units unknown) (unknown) (unknown) (no date) (unknown) (unknown) Time Seen by Provider: 09/03/22 17:16 (units unknown) (unknown) (unknown) (no date) (unknown) (unknown) Vital Signs - 8 hr ( units unknown) (unknown) (unknown) (no date) (unknown) (unknown) Vital Signs (units unknown) (unknown) (unknown) (no date) (unknown) (unknown) Vital signs: (units unknown) (unknown) (unknown) (no date) (unknown) (unknown) XR chest 1V Stat (un its unknown) (unknown) (unknown) (no date) (unknown) (unknown) aerosol inhale r (Ventolin HFA) (units unknown) (unknown) (unknown) (no date) (unknown) (unknown) albuterol sulf ate 90 mcg/actuation 2 puff inhalation Q6H PRN Wheezing 12/29/20 (units unknown) (unknown) (unknown) (no date) (unknown) (unknown) albuterol sulf ate [Ventolin HFA] 90 mcg/actuation Hfa Aerosol Inhaler (units unknown) (unknown) (unknown) (no date) (unknown) (unknown) alcohol intake frequency: other (units unknown) (unknown) (unknown) (no date) (unknown) (unknown) alprazolam 1 m g tablet mg 07/11/21 (units unknown) (unknown) (unknown) (no date) (unknown) (unknown) alprazolam 1 m g tablet (units unknown) (unknown) (unknown) (no date) (unknown) (unknown) anastrozole 1 mg Tablet (units unknown) (unknown) (unknown) (no date) (unknown) (unknown) anastrozole 1 mg tablet 1 mg PO DAILY #30 tabs 08/17/21 (units unknown) (unknown) (unknown) (no date) (unknown) (unknown) and weak like she might fall. She is also concerned about the pain in her back (units unknown) (unknown) (unknown) (no date) (unknown) (unknown) ascorbic acid (vitamin C) 500 mg 500 mg PO DAILY 01/25/22 01/25/22 (units unknown) (unknown) (unknown) (no date) (unknown) (unknown) ascorbic acid (vitamin C) [Vitamin C] 500 mg Tablet (units unknown) (unknown) (unknown) (no date) (unknown) (unknown) bath or wheezi ng, but she does report some visual blurriness for the last (units unknown) (unknown) (unknown) (no date) (unknown) (unknown) between her shoulder blades which started yesterday. She says that she fixed (units unknown) (unknown) (unknown) (no date) (unknown) (unknown) body aches and chills but says she does not ever had a fever. Of note, she (units unknown) (unknown) (unknown) (no date) (unknown) (unknown) cholecalcifero l (vitamin D3) 25 1,000 unit DAILY 01/25/22 01/25/22 (units unknown) (unknown) (unknown) (no date) (unknown) (unknown) cholecalcifero l (vitamin D3) [Vitamin D3] 25 mcg (1,000 unit) Tablet (units unknown) (unknown) (unknown) (no date) (unknown) (unknown) cruise and new onset weakness this morning. She denies chest pain, shortness a (units unknown) (unknown) (unknown) (no date) (unknown) (unknown) denies any rec ent surgery or coagulation problems in the past. She reports (units unknown) (unknown) (unknown) (no date) (unknown) (unknown) emergency room . She notes that she smokes about a pack a day and has COPD. She (units unknown) (unknown) (unknown) (no date) (unknown) (unknown) fluticasone propionate 50 2 spray intranasal DAILY 12/29/20 01/25/22 (units unknown) (unknown) (unknown) (no date) (unknown) (unknown) fluticasone propionate 50 mcg/actuation [place],Suspension (units unknown) (unknown) (unknown) (no date) (unknown) (unknown) furosemide 40 mg tablet (Lasix) 40 mg PO PRN PRN Edema 01/25/22 01/25/22 (units unknown) (unknown) (unknown) (no date) (unknown) (unknown) furosemide [La six] 40 mg tablet (units unknown) (unknown) (unknown) (no date) (unknown) (unknown) her food this morning but did not eat because they came straight to the (units unknown) (unknown) (unknown) (no date) (unknown) (unknown) mcg (1,000 uni t) tablet (Vitamin (units unknown) (unknown) (unknown) (no date) (unknown) (unknown) mcg/actuation nasal (units unknown) (unknown) (unknown) (no date) (unknown) (unknown) metformin 500 mg Tablet (units unknown) (unknown) (unknown) (no date) (unknown) (unknown) metformin 500 mg tablet 500 mg PO DAILY 01/25/22 01/25/22 (units unknown) (unknown) (unknown) (no date) (unknown) (unknown) mg tablet (Percocet) (units unknown) (unknown) (unknown) (no date) (unknown) (unknown) mirtazapine 30 mg Tablet (units unknown) (unknown) (unknown) (no date) (unknown) (unknown) mirtazapine 30 mg tablet 30 mg PO DAILY 01/25/22 01/25/22 (units unknown) (unknown) (unknown) (no date) (unknown) (unknown) nasal congesti on and a sensation of her ears being clogged. She also endorses (units unknown) (unknown) (unknown) (no date) (unknown) (unknown) notes she take s Symbicort daily and denies increased albuterol usage. She (units unknown) (unknown) (unknown) (no date) (unknown) (unknown) oxycodone-acet amino phen 10 mg-325 1 tab PO DAILY 06/15/21 01/25/22 (units unknown) (unknown) (unknown) (no date) (unknown) (unknown) oxycodone-acet amino phen [Percocet] 10-325 mg Tablet (units unknown) (unknown) (unknown) (no date) (unknown) (unknown) quetiapine 25 mg Tablet (units unknown) (unknown) (unknown) (no date) (unknown) (unknown) quetiapine 25 mg tablet 25 mg PO DAILY 12/29/20 01/25/22 (units unknown) (unknown) (unknown) (no date) (unknown) (unknown) quetiapine 25 mg tablet 50 mg PO BEDTIME 12/29/20 01/25/22 (units unknown) (unknown) (unknown) (no date) (unknown) (unknown) remission, presenting for evaluation of a cough x7 days after returning from a (units unknown) (unknown) (unknown) (no date) (unknown) (unknown) reports a hist ory of breast cancer several years ago. She notes that she had a (units unknown) (unknown) (unknown) (no date) (unknown) (unknown) several days, headache characterized by increased frontal facial pressure, and (units unknown) (unknown) (unknown) (no date) (unknown) (unknown) spray,suspension (un its unknown) (unknown) (unknown) (no date) (unknown) (unknown) tablet (Vitamin C) ( units unknown) (unknown) (unknown) (no date) (unknown) (unknown) these bound something. (units unknown) (unknown) (unknown) (no date) (unknown) (unknown) tiotropium bro mide 18 mcg capsule 1 cap inhalation DAILY 12/29/20 01/25/22 (units unknown) (unknown) (unknown) (no date) (unknown) (unknown) tobacco type: cigarettes (units unknown) (unknown) (unknown) (no date) (unknown) (unknown) turmeric 400 m g Capsule (units unknown) (unknown) (unknown) (no date) (unknown) (unknown) turmeric 400 m g capsule mg PO 12/29/20 (units unknown) (unknown) (unknown) (no date) (unknown) (unknown) weakness occur ring suddenly this morning. She says that she felt suddenly dizzy (units unknown) (unknown) (unknown) (no date) (unknown) (unknown) with HandiHaler) (un its unknown) (unknown) (unknown) (no date) (unknown) (unknown) with inhalatio n device (Spiriva (units unknown) (unknown) Result panel 86 (unknown) (no date) (unknown) (unknown) (no value) (units unknown) (unknown) (unknown) (no date) (unknown) (unknown) <Electronicall y signed by Sintia Salas> (units unknown) (unknown) (unknown) (no date) (unknown) (unknown) 09/03/22 14:01 (unit s unknown) (unknown) (unknown) (no date) (unknown) (unknown) 09/03/22 14:03 (unit s unknown) (unknown) (unknown) (no date) (unknown) (unknown) 09/03/22 1951 (units unknown) (unknown) (unknown) (no date) (unknown) (unknown) 09/03/22 Range/Units (units unknown) (unknown) (unknown) (no date) (unknown) (unknown) 09/03/22 (units unknown) (unknown) (unknown) (no date) (unknown) (unknown) 01/25/22 (units unknown) (unknown) (unknown) (no date) (unknown) (unknown) 1 cap INHALATI ON DAILY (units unknown) (unknown) (unknown) (no date) (unknown) (unknown) 1 mg PO DAILY Qty: 30 11RF (units unknown) (unknown) (unknown) (no date) (unknown) (unknown) 1 tab PO DAILY (unit s unknown) (unknown) (unknown) (no date) (unknown) (unknown) 1,000 unit DAILY (un its unknown) (unknown) (unknown) (no date) (unknown) (unknown) 13:58 09/03/22 (unit s unknown) (unknown) (unknown) (no date) (unknown) (unknown) 14:03 (units unknown) (unknown) (unknown) (no date) (unknown) (unknown) 17:43 (units unknown) (unknown) (unknown) (no date) (unknown) (unknown) 2 puff INHALAT ION Q6H PRN (Reason: Wheezing) (units unknown) (unknown) (unknown) (no date) (unknown) (unknown) 2 spray INTRAN MIAH DAILY (units unknown) (unknown) (unknown) (no date) (unknown) (unknown) 25 mg PO DAILY (unit s unknown) (unknown) (unknown) (no date) (unknown) (unknown) 30 mg PO DAILY (unit s unknown) (unknown) (unknown) (no date) (unknown) (unknown) 40 mg PO PRN P RN (Reason: Edema) (units unknown) (unknown) (unknown) (no date) (unknown) (unknown) 50 mg PO BEDTIME (un its unknown) (unknown) (unknown) (no date) (unknown) (unknown) 500 mg PO DAILY (uni ts unknown) (unknown) (unknown) (no date) (unknown) (unknown) 6101 (units unknown) (unknown) (unknown) (no date) (unknown) (unknown) ? (units unknown) (unknown) (unknown) (no date) (unknown) (unknown) Against Medica l Advice. (units unknown) (unknown) (unknown) (no date) (unknown) (unknown) Age/Sex: 71 / F (uni ts unknown) (unknown) (unknown) (no date) (unknown) (unknown) Allergies (units unknown) (unknown) (unknown) (no date) (unknown) (unknown) Allergy/AdvRea c Type Severity Reaction Status Date / Time (units unknown) (unknown) (unknown) (no date) (unknown) (unknown) Approved by: Sathish Rios M.D. on 09/03/2022 at 14:15 ? (units unknown) (unknown) (unknown) (no date) (unknown) (unknown) BACK: Tender o candis bilateral scapula area worse with palpation, no chest pain (units unknown) (unknown) (unknown) (no date) (unknown) (unknown) Blood Pressure 136/99 H 09/03/22 13:58 (units unknown) (unknown) (unknown) (no date) (unknown) (unknown) Blood Pressure 136/99 H 131/82 (units unknown) (unknown) (unknown) (no date) (unknown) (unknown) Bones and ches t wall:? No suspicious bony lesions.? Overlying soft tissues (units unknown) (unknown) (unknown) (no date) (unknown) (unknown) CARDIOVASCULAR : Regular rate and rhythm without murmurs, gallops, or rubs. (units unknown) (unknown) (unknown) (no date) (unknown) (unknown) CC: This is a new problem, uncertain diagnosis possible systemic effects (units unknown) (unknown) (unknown) (no date) (unknown) (unknown) COMPARISON:? None. ( units unknown) (unknown) (unknown) (no date) (unknown) (unknown) Chest x-ray: (units unknown) (unknown) (unknown) (no date) (unknown) (unknown) Chief Complain t: Upper Respiratory Symptoms (units unknown) (unknown) (unknown) (no date) (unknown) (unknown) Clinical Impression: (units unknown) (unknown) (unknown) (no date) (unknown) (unknown) Complicating co-morbidities: CHF, COPD, history of breast cancer in remission (units unknown) (unknown) (unknown) (no date) (unknown) (unknown) Consultations: Discussed case with Dr. Moy who recommends further workup (units unknown) (unknown) (unknown) (no date) (unknown) (unknown) Corroborating data: (units unknown) (unknown) (unknown) (no date) (unknown) (unknown) Course (units unknown) (unknown) (unknown) (no date) (unknown) (unknown) Covid-19 + FLU A/B + RSV - PCR Stat (units unknown) (unknown) (unknown) (no date) (unknown) (unknown) D3) (units unknown) (unknown) (unknown) (no date) (unknown) (unknown) : 0 Acct:[id number] (units unknown) (unknown) (unknown) (no date) (unknown) (unknown) Data collected from: patient (units unknown) (unknown) (unknown) (no date) (unknown) (unknown) Date of Servic e: 09/03/22 (units unknown) (unknown) (unknown) (no date) (unknown) (unknown) Departure (units unknown) (unknown) (unknown) (no date) (unknown) (unknown) Dictated by: Sathish Rios M.D. on 09/03/2022 at 14:15 ? ? (units unknown) (unknown) (unknown) (no date) (unknown) (unknown) Differential considered: ACS, lung cancer, dysrhythmia, electrolyte (units unknown) (unknown) (unknown) (no date) (unknown) (unknown) Discharge Plan (unit s unknown) (unknown) (unknown) (no date) (unknown) (unknown) Discussion: Girma yarbrough had clear capacity to make decisions for herself. She (units unknown) (unknown) (unknown) (no date) (unknown) (unknown) Disposition: s ee below, along with detailed discharge instructions that have (units unknown) (unknown) (unknown) (no date) (unknown) (unknown) ED Orders (units unknown) (unknown) (unknown) (no date) (unknown) (unknown) ENT: Nose with out bleeding, purulent drainage. Throat without erythema, Airway (units unknown) (unknown) (unknown) (no date) (unknown) (unknown) ER Physician: Sintia Salas (units unknown) (unknown) (unknown) (no date) (unknown) (unknown) EXTREMITIES: N o bilateral edema (units unknown) (unknown) (unknown) (no date) (unknown) (unknown) EYES: Pupils e qual round and reactive. No scleral icterus. No injection or (units unknown) (unknown) (unknown) (no date) (unknown) (unknown) Emergency Report (un its unknown) (unknown) (unknown) (no date) (unknown) (unknown) Exam documente d above, pertinent findings include: Tenderness to percussion of (units unknown) (unknown) (unknown) (no date) (unknown) (unknown) Exam (units unknown) (unknown) (unknown) (no date) (unknown) (unknown) FINDINGS:? (units unknown) (unknown) (unknown) (no date) (unknown) (unknown) GENERAL: 71 ye ar old patient appears stated age. Well-developed patient, in no (units unknown) (unknown) (unknown) (no date) (unknown) (unknown) General (units unknown) (unknown) (unknown) (no date) (unknown) (unknown) HEAD: Atraumat ic. Normocephalic. Tenderness to percussion of sinuses (units unknown) (unknown) (unknown) (no date) (unknown) (unknown) HPI - URI/Sore Throat (units unknown) (unknown) (unknown) (no date) (unknown) (unknown) HPI Narrative: (unit s unknown) (unknown) (unknown) (no date) (unknown) (unknown) History of Pre sent Illness (units unknown) (unknown) (unknown) (no date) (unknown) (unknown) Home Medications (un its unknown) (unknown) (unknown) (no date) (unknown) (unknown) IMPRESSION:? N o acute pulmonary process. (units unknown) (unknown) (unknown) (no date) (unknown) (unknown) INDICATIONS:? cough (units unknown) (unknown) (unknown) (no date) (unknown) (unknown) Imaging Data (units unknown) (unknown) (unknown) (no date) (unknown) (unknown) Imaging studie s independently reviewed: No abnormal findings noted on chest x (units unknown) (unknown) (unknown) (no date) (unknown) (unknown) Influenza A (RT-PCR) Flu a negative (NEGATIVE) (units unknown) (unknown) (unknown) (no date) (unknown) (unknown) Influenza B (RT-PCR) Flu b negative (NEGATIVE) (units unknown) (unknown) (unknown) (no date) (unknown) (unknown) Initial Vital Signs (units unknown) (unknown) (unknown) (no date) (unknown) (unknown) Initial Vital Signs: (units unknown) (unknown) (unknown) (no date) (unknown) (unknown) [place] [address] (units unknown) (unknown) (unknown) (no date) (unknown) (unknown) Lab Data (units unknown) (unknown) (unknown) (no date) (unknown) (unknown) Lab Results (units unknown) (unknown) (unknown) (no date) (unknown) (unknown) Lab Test resul ts independently reviewed as above. Pertinent findings: Negative (units unknown) (unknown) (unknown) (no date) (unknown) (unknown) Labs: (units unknown) (unknown) (unknown) (no date) (unknown) (unknown) Lungs and pleu ra:? Lungs are clear.? No pleural effusions or pneumothorax.? (units unknown) (unknown) (unknown) (no date) (unknown) (unknown) MDM - URI/Sore Throat (units unknown) (unknown) (unknown) (no date) (unknown) (unknown) MDM Narrative (units unknown) (unknown) (unknown) (no date) (unknown) (unknown) Mediastinum:? Mediastinal contours appear normal.? Heart size is normal.? (units unknown) (unknown) (unknown) (no date) (unknown) (unknown) Medical decisi on making narrative: (units unknown) (unknown) (unknown) (no date) (unknown) (unknown) Medical record s reviewed: treated for CHF exacerbation last year (units unknown) (unknown) (unknown) (no date) (unknown) (unknown) Medication Instructions Recorded Confirmed (units unknown) (unknown) (unknown) (no date) (unknown) (unknown) Medication Instructions Recorded (units unknown) (unknown) (unknown) (no date) (unknown) (unknown) NECK: Trachea midline. (units unknown) (unknown) (unknown) (no date) (unknown) (unknown) NEURO: AOx3. (units unknown) (unknown) (unknown) (no date) (unknown) (unknown) No Action (units unknown) (unknown) (unknown) (no date) (unknown) (unknown) No Known Drug Allergies Allergy Verified 07/11/21 17:53 (units unknown) (unknown) (unknown) (no date) (unknown) (unknown) Ordered: (units unknown) (unknown) (unknown) (no date) (unknown) (unknown) Orders (units unknown) (unknown) (unknown) (no date) (unknown) (unknown) Oxygen Deliver y Method Room Air 09/03/22 13:58 (units unknown) (unknown) (unknown) (no date) (unknown) (unknown) Oxygen Deliver y Method Room Air Room Air (units unknown) (unknown) (unknown) (no date) (unknown) (unknown) PO (units unknown) (unknown) (unknown) (no date) (unknown) (unknown) PROCEDURE:? XR CHEST 1V (units unknown) (unknown) (unknown) (no date) (unknown) (unknown) Patient Disposition: Left Against Medical Advice (units unknown) (unknown) (unknown) (no date) (unknown) (unknown) Patient History (uni ts unknown) (unknown) (unknown) (no date) (unknown) (unknown) Patient is a 71-year-old female with COPD, CHF, history of breast cancer in (units unknown) (unknown) (unknown) (no date) (unknown) (unknown) Patient: Milagros Kaiser MR#: [id number] (units unknown) (unknown) (unknown) (no date) (unknown) (unknown) Prescriptions: (unit s unknown) (unknown) (unknown) (no date) (unknown) (unknown) Previous Rx's (units unknown) (unknown) (unknown) (no date) (unknown) (unknown) Pulse Oximetry 96 09/03/22 13:58 (units unknown) (unknown) (unknown) (no date) (unknown) (unknown) Pulse Oximetry 96 99 (units unknown) (unknown) (unknown) (no date) (unknown) (unknown) Pulse Rate 87 09/03/22 13:58 (units unknown) (unknown) (unknown) (no date) (unknown) (unknown) Pulse Rate 87 89 (un its unknown) (unknown) (unknown) (no date) (unknown) (unknown) RESPIRATORY: C lear to auscultation. Breath sounds equal bilaterally. No wheezes, (units unknown) (unknown) (unknown) (no date) (unknown) (unknown) RSV (PCR) Nega tive (Negative) (units unknown) (unknown) (unknown) (no date) (unknown) (unknown) Radiologist's Impression: (units unknown) (unknown) (unknown) (no date) (unknown) (unknown) Related Data (units unknown) (unknown) (unknown) (no date) (unknown) (unknown) Respiratory Ra te 16 09/03/22 13:58 (units unknown) (unknown) (unknown) (no date) (unknown) (unknown) Respiratory Ra te 16 18 (units unknown) (unknown) (unknown) (no date) (unknown) (unknown) SARS-CoV-2 (PC R) Negative (Negative) (units unknown) (unknown) (unknown) (no date) (unknown) (unknown) SKIN: No rash or erythema of visible areas (units unknown) (unknown) (unknown) (no date) (unknown) (unknown) Signed By: (units unknown) (unknown) (unknown) (no date) (unknown) (unknown) Smoking Status : Current every day smoker (units unknown) (unknown) (unknown) (no date) (unknown) (unknown) Social History (units unknown) (unknown) (unknown) (no date) (unknown) (unknown) Spiriva with HandiHaler 18 mcg Capsule, W/Inhalation Device (units unknown) (unknown) (unknown) (no date) (unknown) (unknown) Stand Alone Fo vinnie: Against Medical Advice (units unknown) (unknown) (unknown) (no date) (unknown) (unknown) Stated Complai nt: weak chest pain back pain cough (units unknown) (unknown) (unknown) (no date) (unknown) (unknown) Substance Use Type: does not use (units unknown) (unknown) (unknown) (no date) (unknown) (unknown) Surgical [place] es and devices:? Partially visualized left shoulder arthroplasty. (units unknown) (unknown) (unknown) (no date) (unknown) (unknown) Symbicort sheree y and denies increased albuterol usage. She denies any recent (units unknown) (unknown) (unknown) (no date) (unknown) (unknown) TECHNIQUE:? On e view of the chest was acquired.? (units unknown) (unknown) (unknown) (no date) (unknown) (unknown) Temperature 97 F L 09/03/22 13:58 (units unknown) (unknown) (unknown) (no date) (unknown) (unknown) Temperature 97 F L ( units unknown) (unknown) (unknown) (no date) (unknown) (unknown) Time Seen by Provider: 09/03/22 17:16 (units unknown) (unknown) (unknown) (no date) (unknown) (unknown) Vital Signs - 8 hr ( units unknown) (unknown) (unknown) (no date) (unknown) (unknown) Vital Signs (units unknown) (unknown) (unknown) (no date) (unknown) (unknown) Vital signs: (units unknown) (unknown) (unknown) (no date) (unknown) (unknown) Weakness, Visu al blurriness, Cough (units unknown) (unknown) (unknown) (no date) (unknown) (unknown) XR chest 1V Stat (un its unknown) (unknown) (unknown) (no date) (unknown) (unknown) acute distress . Sitting in a wheelchair. [place] (units unknown) (unknown) (unknown) (no date) (unknown) (unknown) additional outpatient follow up (units unknown) (unknown) (unknown) (no date) (unknown) (unknown) aerosol inhale r (Ventolin HFA) (units unknown) (unknown) (unknown) (no date) (unknown) (unknown) albuterol sulf ate 90 mcg/actuation 2 puff inhalation Q6H PRN Wheezing 12/29/20 (units unknown) (unknown) (unknown) (no date) (unknown) (unknown) albuterol sulf ate [Ventolin HFA] 90 mcg/actuation Hfa Aerosol Inhaler (units unknown) (unknown) (unknown) (no date) (unknown) (unknown) alcohol intake frequency: other (units unknown) (unknown) (unknown) (no date) (unknown) (unknown) alprazolam 1 m g tablet mg 07/11/21 (units unknown) (unknown) (unknown) (no date) (unknown) (unknown) alprazolam 1 m g tablet (units unknown) (unknown) (unknown) (no date) (unknown) (unknown) also concerned about a pain in her back between her shoulder blades which (units unknown) (unknown) (unknown) (no date) (unknown) (unknown) anastrozole 1 mg Tablet (units unknown) (unknown) (unknown) (no date) (unknown) (unknown) anastrozole 1 mg tablet 1 mg PO DAILY #30 tabs 08/17/21 (units unknown) (unknown) (unknown) (no date) (unknown) (unknown) and verbalizes understanding. She chooses with full knowledge to sign out (units unknown) (unknown) (unknown) (no date) (unknown) (unknown) and weak like she might fall this morning and chose to come into the ED. She is (units unknown) (unknown) (unknown) (no date) (unknown) (unknown) appear (units unknown) (unknown) (unknown) (no date) (unknown) (unknown) as well as blo od work including CBC and CMP and possible further imaging to (units unknown) (unknown) (unknown) (no date) (unknown) (unknown) ascorbic acid (vitamin C) 500 mg 500 mg PO DAILY 01/25/22 01/25/22 (units unknown) (unknown) (unknown) (no date) (unknown) (unknown) ascorbic acid (vitamin C) [Vitamin C] 500 mg Tablet (units unknown) (unknown) (unknown) (no date) (unknown) (unknown) atypical pneum onia with antibiotic and steroid given that she has COPD and she (units unknown) (unknown) (unknown) (no date) (unknown) (unknown) been reviewed with patient as well as indications for ED re-evaluation and (units unknown) (unknown) (unknown) (no date) (unknown) (unknown) breast cancer several years ago. She notes that she had a CT last month with (units unknown) (unknown) (unknown) (no date) (unknown) (unknown) breath or whee zing, but she does report some visual blurriness for the last (units unknown) (unknown) (unknown) (no date) (unknown) (unknown) but says she d oes not ever have a fever. Of note, she reports a history of (units unknown) (unknown) (unknown) (no date) (unknown) (unknown) cholecalcifero l (vitamin D3) 25 1,000 unit DAILY 01/25/22 01/25/22 (units unknown) (unknown) (unknown) (no date) (unknown) (unknown) cholecalcifero l (vitamin D3) [Vitamin D3] 25 mcg (1,000 unit) Tablet (units unknown) (unknown) (unknown) (no date) (unknown) (unknown) concerning [facility] she was to follow up on. She states that she is uncertain if (units unknown) (unknown) (unknown) (no date) (unknown) (unknown) cruise and new onset weakness this morning. She denies chest pain, shortness of (units unknown) (unknown) (unknown) (no date) (unknown) (unknown) develop concer wilmar symptoms or continues to experience weakness, I recommend (units unknown) (unknown) (unknown) (no date) (unknown) (unknown) disturbance, P E, sinusitis, bronchitis, atypical pneumonia (units unknown) (unknown) (unknown) (no date) (unknown) (unknown) dizziness and visual blurriness. We discussed what some of these issues may be (units unknown) (unknown) (unknown) (no date) (unknown) (unknown) drainage. (units unknown) (unknown) (unknown) (no date) (unknown) (unknown) eat because th stephany came straight to the emergency room due to her dizziness. She (units unknown) (unknown) (unknown) (no date) (unknown) (unknown) fluticasone propionate 50 2 spray intranasal DAILY 12/29/20 01/25/22 (units unknown) (unknown) (unknown) (no date) (unknown) (unknown) fluticasone propionate 50 mcg/actuation [place],Suspension (units unknown) (unknown) (unknown) (no date) (unknown) (unknown) for COVID, flu and RSV. (units unknown) (unknown) (unknown) (no date) (unknown) (unknown) furosemide 40 mg tablet (Lasix) 40 mg PO PRN PRN Edema 01/25/22 01/25/22 (units unknown) (unknown) (unknown) (no date) (unknown) (unknown) furosemide [La six] 40 mg tablet (units unknown) (unknown) (unknown) (no date) (unknown) (unknown) further evalua te and rule out possible concerning causes of new onset of (units unknown) (unknown) (unknown) (no date) (unknown) (unknown) has been havin g symptoms for the last 7 days. She is agreeable to plan of care (units unknown) (unknown) (unknown) (no date) (unknown) (unknown) her primary ca re for her regular lung cancer screening and it showed something (units unknown) (unknown) (unknown) (no date) (unknown) (unknown) including ACS, electrolyte disturbance, pneumonia not seen on chest x-ray or (units unknown) (unknown) (unknown) (no date) (unknown) (unknown) increased risk for developing severe illness. We did discuss that should she (units unknown) (unknown) (unknown) (no date) (unknown) (unknown) it took for he r to be seen. We discussed that although her chest x-ray is (units unknown) (unknown) (unknown) (no date) (unknown) (unknown) mcg (1,000 uni t) tablet (Vitamin (units unknown) (unknown) (unknown) (no date) (unknown) (unknown) mcg/actuation nasal (units unknown) (unknown) (unknown) (no date) (unknown) (unknown) metformin 500 mg Tablet (units unknown) (unknown) (unknown) (no date) (unknown) (unknown) metformin 500 mg tablet 500 mg PO DAILY 01/25/22 01/25/22 (units unknown) (unknown) (unknown) (no date) (unknown) (unknown) mg tablet (Percocet) (units unknown) (unknown) (unknown) (no date) (unknown) (unknown) mirtazapine 30 mg Tablet (units unknown) (unknown) (unknown) (no date) (unknown) (unknown) mirtazapine 30 mg tablet 30 mg PO DAILY 01/25/22 01/25/22 (units unknown) (unknown) (unknown) (no date) (unknown) (unknown) negative, I am concerned for her symptoms of dizziness and visual blurriness (units unknown) (unknown) (unknown) (no date) (unknown) (unknown) notes that she smokes about a pack a day and has COPD. She notes she takes (units unknown) (unknown) (unknown) (no date) (unknown) (unknown) other concerni ng cause. We discussed that if she does leave now, she is at (units unknown) (unknown) (unknown) (no date) (unknown) (unknown) oxycodone-acet amino phen 10 mg-325 1 tab PO DAILY 06/15/21 01/25/22 (units unknown) (unknown) (unknown) (no date) (unknown) (unknown) oxycodone-acet amino phen [Percocet] 10-325 mg Tablet (units unknown) (unknown) (unknown) (no date) (unknown) (unknown) patent. [place] midline. TMs pearly guajardo with good COL. (units unknown) (unknown) (unknown) (no date) (unknown) (unknown) quetiapine 25 mg Tablet (units unknown) (unknown) (unknown) (no date) (unknown) (unknown) quetiapine 25 mg tablet 25 mg PO DAILY 12/29/20 01/25/22 (units unknown) (unknown) (unknown) (no date) (unknown) (unknown) quetiapine 25 mg tablet 50 mg PO BEDTIME 12/29/20 01/25/22 (units unknown) (unknown) (unknown) (no date) (unknown) (unknown) rales, or rhonchi. ( units unknown) (unknown) (unknown) (no date) (unknown) (unknown) ray. (units unknown) (unknown) (unknown) (no date) (unknown) (unknown) remission, presenting for evaluation of a cough x7 days after returning from a (units unknown) (unknown) (unknown) (no date) (unknown) (unknown) sensation of h er ears being clogged. She also endorses body aches and chills (units unknown) (unknown) (unknown) (no date) (unknown) (unknown) several days, headache characterized by increased frontal facial pressure, and (units unknown) (unknown) (unknown) (no date) (unknown) (unknown) she feels weak at this time, but is afraid to stand up because it may cause her (units unknown) (unknown) (unknown) (no date) (unknown) (unknown) sinuses, clear to auscultation bilaterally (units unknown) (unknown) (unknown) (no date) (unknown) (unknown) spray,suspension (un its unknown) (unknown) (unknown) (no date) (unknown) (unknown) started yester day. She says that she fixed her food this morning but did not (units unknown) (unknown) (unknown) (no date) (unknown) (unknown) starting with EKG and bloodwork. (units unknown) (unknown) (unknown) (no date) (unknown) (unknown) surgery or coagulation problems in the past. She reports nasal congestion and a (units unknown) (unknown) (unknown) (no date) (unknown) (unknown) tablet (Vitamin C) ( units unknown) (unknown) (unknown) (no date) (unknown) (unknown) that she retur n for this further evaluation. I will go ahead and treat for an (units unknown) (unknown) (unknown) (no date) (unknown) (unknown) tiotropium bro mide 18 mcg capsule 1 cap inhalation DAILY 12/29/20 01/25/22 (units unknown) (unknown) (unknown) (no date) (unknown) (unknown) to fall. (units unknown) (unknown) (unknown) (no date) (unknown) (unknown) tobacco type: cigarettes (units unknown) (unknown) (unknown) (no date) (unknown) (unknown) turmeric 400 m g Capsule (units unknown) (unknown) (unknown) (no date) (unknown) (unknown) turmeric 400 m g capsule mg PO 12/29/20 (units unknown) (unknown) (unknown) (no date) (unknown) (unknown) unremarkable.? (unit s unknown) (unknown) (unknown) (no date) (unknown) (unknown) weakness occur ring suddenly this morning. She says that she felt suddenly dizzy (units unknown) (unknown) (unknown) (no date) (unknown) (unknown) with HandiHaler) (un its unknown) (unknown) (unknown) (no date) (unknown) (unknown) with external palpation, no focal spinal tenderness (units unknown) (unknown) (unknown) (no date) (unknown) (unknown) with her significant comorbidities. We discussed that I think she needs an EKG (units unknown) (unknown) (unknown) (no date) (unknown) (unknown) with inhalatio n device (Spiriva (units unknown) (unknown) (unknown) (no date) (unknown) (unknown) would like to leave without further workup reportedly due to the amount of time (units unknown) (unknown) Result panel 87 (unknown) (no date) (unknown) (unknown) (no value) (units unknown) (unknown) (unknown) (no date) (unknown) (unknown) <Electronicall y signed by Sintia Salas> (units unknown) (unknown) (unknown) (no date) (unknown) (unknown) <Electronicall y signed by José Miguel SantamariaOKillian> (units unknown) (unknown) (unknown) (no date) (unknown) (unknown) <Electronicall y signed by Rosalio SarkarO.> (units unknown) (unknown) (unknown) (no date) (unknown) (unknown) <Sintia Salas PA-C - Last Filed: 09/03/22 19:51> (units unknown) (unknown) (unknown) (no date) (unknown) (unknown) <José Miguel Moy DO - Last Filed: 09/04/22 03:13> (units unknown) (unknown) (unknown) (no date) (unknown) (unknown) <cosigner> (units unknown) (unknown) (unknown) (no date) (unknown) (unknown) 09/03/22 14:01 (unit s unknown) (unknown) (unknown) (no date) (unknown) (unknown) 09/03/22 14:03 (unit s unknown) (unknown) (unknown) (no date) (unknown) (unknown) 09/03/22 1951 (units unknown) (unknown) (unknown) (no date) (unknown) (unknown) 09/03/22 Range/Units (units unknown) (unknown) (unknown) (no date) (unknown) (unknown) 09/03/22 (units unknown) (unknown) (unknown) (no date) (unknown) (unknown) 09/04/22 0313 (units unknown) (unknown) (unknown) (no date) (unknown) (unknown) 01/25/22 (units unknown) (unknown) (unknown) (no date) (unknown) (unknown) 1 cap INHALATI ON DAILY (units unknown) (unknown) (unknown) (no date) (unknown) (unknown) 1 mg PO DAILY Qty: 30 11RF (units unknown) (unknown) (unknown) (no date) (unknown) (unknown) 1 tab PO DAILY (unit s unknown) (unknown) (unknown) (no date) (unknown) (unknown) 1,000 unit DAILY (un its unknown) (unknown) (unknown) (no date) (unknown) (unknown) 13:58 09/03/22 (unit s unknown) (unknown) (unknown) (no date) (unknown) (unknown) 14:03 (units unknown) (unknown) (unknown) (no date) (unknown) (unknown) 17:43 (units unknown) (unknown) (unknown) (no date) (unknown) (unknown) 2 puff INHALAT ION Q6H PRN (Reason: Wheezing) (units unknown) (unknown) (unknown) (no date) (unknown) (unknown) 2 spray INTRAN MIAH DAILY (units unknown) (unknown) (unknown) (no date) (unknown) (unknown) 25 mg PO DAILY (unit s unknown) (unknown) (unknown) (no date) (unknown) (unknown) 30 mg PO DAILY (unit s unknown) (unknown) (unknown) (no date) (unknown) (unknown) 40 mg PO PRN P RN (Reason: Edema) (units unknown) (unknown) (unknown) (no date) (unknown) (unknown) 50 mg PO BEDTIME (un its unknown) (unknown) (unknown) (no date) (unknown) (unknown) 500 mg PO DAILY (uni ts unknown) (unknown) (unknown) (no date) (unknown) (unknown) 6101 (units unknown) (unknown) (unknown) (no date) (unknown) (unknown) ? (units unknown) (unknown) (unknown) (no date) (unknown) (unknown) Against Medica l Advice. (units unknown) (unknown) (unknown) (no date) (unknown) (unknown) Age/Sex: 71 / F (uni ts unknown) (unknown) (unknown) (no date) (unknown) (unknown) Allergies (units unknown) (unknown) (unknown) (no date) (unknown) (unknown) Allergy/AdvRea c Type Severity Reaction Status Date / Time (units unknown) (unknown) (unknown) (no date) (unknown) (unknown) Approved by: Sathish Rios M.D. on 09/03/2022 at 14:15 ? (units unknown) (unknown) (unknown) (no date) (unknown) (unknown) BACK: Tender o canids bilateral scapula area worse with palpation, no chest pain (units unknown) (unknown) (unknown) (no date) (unknown) (unknown) Blood Pressure 136/99 H 09/03/22 13:58 (units unknown) (unknown) (unknown) (no date) (unknown) (unknown) Blood Pressure 136/99 H 131/82 (units unknown) (unknown) (unknown) (no date) (unknown) (unknown) Bones and ches t wall:? No suspicious bony lesions.? Overlying soft tissues (units unknown) (unknown) (unknown) (no date) (unknown) (unknown) CARDIOVASCULAR : Regular rate and rhythm without murmurs, gallops, or rubs. (units unknown) (unknown) (unknown) (no date) (unknown) (unknown) CC: This is a new problem, uncertain diagnosis possible systemic effects (units unknown) (unknown) (unknown) (no date) (unknown) (unknown) COMPARISON:? None. ( units unknown) (unknown) (unknown) (no date) (unknown) (unknown) Chest x-ray: (units unknown) (unknown) (unknown) (no date) (unknown) (unknown) Chief Complain t: Upper Respiratory Symptoms (units unknown) (unknown) (unknown) (no date) (unknown) (unknown) Clinical Impression: (units unknown) (unknown) (unknown) (no date) (unknown) (unknown) Complicating co-morbidities: CHF, COPD, history of breast cancer in remission (units unknown) (unknown) (unknown) (no date) (unknown) (unknown) Consultations: Discussed case with Dr. Moy who recommends further workup (units unknown) (unknown) (unknown) (no date) (unknown) (unknown) Corroborating data: (units unknown) (unknown) (unknown) (no date) (unknown) (unknown) Cosign (units unknown) (unknown) (unknown) (no date) (unknown) (unknown) Course (units unknown) (unknown) (unknown) (no date) (unknown) (unknown) Covid-19 + FLU A/B + RSV - PCR Stat (units unknown) (unknown) (unknown) (no date) (unknown) (unknown) D3) (units unknown) (unknown) (unknown) (no date) (unknown) (unknown) : 0 Acct:[id number] (units unknown) (unknown) (unknown) (no date) (unknown) (unknown) Data collected from: patient (units unknown) (unknown) (unknown) (no date) (unknown) (unknown) Date of Servic e: 09/03/22 (units unknown) (unknown) (unknown) (no date) (unknown) (unknown) Departure (units unknown) (unknown) (unknown) (no date) (unknown) (unknown) Dictated by: Sathish Rios M.D. on 09/03/2022 at 14:15 ? ? (units unknown) (unknown) (unknown) (no date) (unknown) (unknown) Differential considered: ACS, lung cancer, dysrhythmia, electrolyte (units unknown) (unknown) (unknown) (no date) (unknown) (unknown) Discharge Plan (unit s unknown) (unknown) (unknown) (no date) (unknown) (unknown) Discussion: Girma yarbrough had clear capacity to make decisions for herself. She (units unknown) (unknown) (unknown) (no date) (unknown) (unknown) Disposition: s ee below, along with detailed discharge instructions that have (units unknown) (unknown) (unknown) (no date) (unknown) (unknown) ED Attending Cosignature Attestation: (units unknown) (unknown) (unknown) (no date) (unknown) (unknown) ED Orders (units unknown) (unknown) (unknown) (no date) (unknown) (unknown) ENT: Nose with out bleeding, purulent drainage. Throat without erythema, Airway (units unknown) (unknown) (unknown) (no date) (unknown) (unknown) ER Physician: Sintia Salas (units unknown) (unknown) (unknown) (no date) (unknown) (unknown) EXTREMITIES: N o bilateral edema (units unknown) (unknown) (unknown) (no date) (unknown) (unknown) EYES: Pupils e qual round and reactive. No scleral icterus. No injection or (units unknown) (unknown) (unknown) (no date) (unknown) (unknown) Emergency Report (un its unknown) (unknown) (unknown) (no date) (unknown) (unknown) Exam documente d above, pertinent findings include: Tenderness to percussion of (units unknown) (unknown) (unknown) (no date) (unknown) (unknown) Exam (units unknown) (unknown) (unknown) (no date) (unknown) (unknown) FINDINGS:? (units unknown) (unknown) (unknown) (no date) (unknown) (unknown) GENERAL: 71 ye ar old patient appears stated age. Well-developed patient, in no (units unknown) (unknown) (unknown) (no date) (unknown) (unknown) General (units unknown) (unknown) (unknown) (no date) (unknown) (unknown) HEAD: Atraumat ic. Normocephalic. Tenderness to percussion of sinuses (units unknown) (unknown) (unknown) (no date) (unknown) (unknown) HPI - URI/Sore Throat (units unknown) (unknown) (unknown) (no date) (unknown) (unknown) HPI Narrative: (unit s unknown) (unknown) (unknown) (no date) (unknown) (unknown) History of Pre sent Illness (units unknown) (unknown) (unknown) (no date) (unknown) (unknown) Home Medications (un its unknown) (unknown) (unknown) (no date) (unknown) (unknown) I was immediat lyle available in the department for consultation. Documentation (units unknown) (unknown) (unknown) (no date) (unknown) (unknown) IMPRESSION:? N o acute pulmonary process. (units unknown) (unknown) (unknown) (no date) (unknown) (unknown) INDICATIONS:? cough (units unknown) (unknown) (unknown) (no date) (unknown) (unknown) Imaging Data (units unknown) (unknown) (unknown) (no date) (unknown) (unknown) Imaging studie s independently reviewed: No abnormal findings noted on chest x (units unknown) (unknown) (unknown) (no date) (unknown) (unknown) Influenza A (RT-PCR) Flu a negative (NEGATIVE) (units unknown) (unknown) (unknown) (no date) (unknown) (unknown) Influenza B (RT-PCR) Flu b negative (NEGATIVE) (units unknown) (unknown) (unknown) (no date) (unknown) (unknown) Initial Vital Signs (units unknown) (unknown) (unknown) (no date) (unknown) (unknown) Initial Vital Signs: (units unknown) (unknown) (unknown) (no date) (unknown) (unknown) [address] [address] (units unknown) (unknown) (unknown) (no date) (unknown) (unknown) Lab Data (units unknown) (unknown) (unknown) (no date) (unknown) (unknown) Lab Results (units unknown) (unknown) (unknown) (no date) (unknown) (unknown) Lab Test resul ts independently reviewed as above. Pertinent findings: Negative (units unknown) (unknown) (unknown) (no date) (unknown) (unknown) Labs: (units unknown) (unknown) (unknown) (no date) (unknown) (unknown) Lungs and pleu ra:? Lungs are clear.? No pleural effusions or pneumothorax.? (units unknown) (unknown) (unknown) (no date) (unknown) (unknown) MDM - URI/Sore Throat (units unknown) (unknown) (unknown) (no date) (unknown) (unknown) MDM Narrative (units unknown) (unknown) (unknown) (no date) (unknown) (unknown) Mediastinum:? Mediastinal contours appear normal.? Heart size is normal.? (units unknown) (unknown) (unknown) (no date) (unknown) (unknown) Medical decisi on making narrative: (units unknown) (unknown) (unknown) (no date) (unknown) (unknown) Medical record s reviewed: treated for CHF exacerbation last year (units unknown) (unknown) (unknown) (no date) (unknown) (unknown) Medication Instructions Recorded Confirmed (units unknown) (unknown) (unknown) (no date) (unknown) (unknown) Medication Instructions Recorded (units unknown) (unknown) (unknown) (no date) (unknown) (unknown) NECK: [place] midline. (units unknown) (unknown) (unknown) (no date) (unknown) (unknown) NEURO: AOx3. (units unknown) (unknown) (unknown) (no date) (unknown) (unknown) No Action (units unknown) (unknown) (unknown) (no date) (unknown) (unknown) No Known Drug Allergies Allergy Verified 07/11/21 17:53 (units unknown) (unknown) (unknown) (no date) (unknown) (unknown) Ordered: (units unknown) (unknown) (unknown) (no date) (unknown) (unknown) Orders (units unknown) (unknown) (unknown) (no date) (unknown) (unknown) Oxygen Deliver y Method Room Air 09/03/22 13:58 (units unknown) (unknown) (unknown) (no date) (unknown) (unknown) Oxygen Deliver y Method Room Air Room Air (units unknown) (unknown) (unknown) (no date) (unknown) (unknown) PO (units unknown) (unknown) (unknown) (no date) (unknown) (unknown) PROCEDURE:? XR CHEST 1V (units unknown) (unknown) (unknown) (no date) (unknown) (unknown) Patient Disposition: Left Against Medical Advice (units unknown) (unknown) (unknown) (no date) (unknown) (unknown) Patient History (uni ts unknown) (unknown) (unknown) (no date) (unknown) (unknown) Patient is a 71-year-old female with COPD, CHF, history of breast cancer in (units unknown) (unknown) (unknown) (no date) (unknown) (unknown) Patient: Milagros Kaiser MR#: [id number] (units unknown) (unknown) (unknown) (no date) (unknown) (unknown) Prescriptions: (unit s unknown) (unknown) (unknown) (no date) (unknown) (unknown) Previous Rx's (units unknown) (unknown) (unknown) (no date) (unknown) (unknown) Pulse Oximetry 96 09/03/22 13:58 (units unknown) (unknown) (unknown) (no date) (unknown) (unknown) Pulse Oximetry 96 99 (units unknown) (unknown) (unknown) (no date) (unknown) (unknown) Pulse Rate 87 09/03/22 13:58 (units unknown) (unknown) (unknown) (no date) (unknown) (unknown) Pulse Rate 87 89 (un its unknown) (unknown) (unknown) (no date) (unknown) (unknown) RESPIRATORY: C lear to auscultation. Breath sounds equal bilaterally. No wheezes, (units unknown) (unknown) (unknown) (no date) (unknown) (unknown) RSV (PCR) Nega tive (Negative) (units unknown) (unknown) (unknown) (no date) (unknown) (unknown) Radiologist's Impression: (units unknown) (unknown) (unknown) (no date) (unknown) (unknown) Related Data (units unknown) (unknown) (unknown) (no date) (unknown) (unknown) Respiratory Ra te 16 09/03/22 13:58 (units unknown) (unknown) (unknown) (no date) (unknown) (unknown) Respiratory Ra te 16 18 (units unknown) (unknown) (unknown) (no date) (unknown) (unknown) SARS-CoV-2 (PC R) Negative (Negative) (units unknown) (unknown) (unknown) (no date) (unknown) (unknown) SKIN: No rash or erythema of visible areas (units unknown) (unknown) (unknown) (no date) (unknown) (unknown) Signed By: (units unknown) (unknown) (unknown) (no date) (unknown) (unknown) Smoking Status : Current every day smoker (units unknown) (unknown) (unknown) (no date) (unknown) (unknown) Social History (units unknown) (unknown) (unknown) (no date) (unknown) (unknown) Spiriva with HandiHaler 18 mcg Capsule, W/Inhalation Device (units unknown) (unknown) (unknown) (no date) (unknown) (unknown) Stand Alone Fo vinnie: Against Medical Advice (units unknown) (unknown) (unknown) (no date) (unknown) (unknown) Stated Complai nt: weak chest pain back pain cough (units unknown) (unknown) (unknown) (no date) (unknown) (unknown) Substance Use Type: does not use (units unknown) (unknown) (unknown) (no date) (unknown) (unknown) Surgical [place] es and devices:? Partially visualized left shoulder arthroplasty. (units unknown) (unknown) (unknown) (no date) (unknown) (unknown) Symbicort sheree y and denies increased albuterol usage. She denies any recent (units unknown) (unknown) (unknown) (no date) (unknown) (unknown) TECHNIQUE:? On e view of the chest was acquired.? (units unknown) (unknown) (unknown) (no date) (unknown) (unknown) Temperature 97 F L 09/03/22 13:58 (units unknown) (unknown) (unknown) (no date) (unknown) (unknown) Temperature 97 F L ( units unknown) (unknown) (unknown) (no date) (unknown) (unknown) Time Seen by Provider: 09/03/22 17:16 (units unknown) (unknown) (unknown) (no date) (unknown) (unknown) Vital Signs - 8 hr ( units unknown) (unknown) (unknown) (no date) (unknown) (unknown) Vital Signs (units unknown) (unknown) (unknown) (no date) (unknown) (unknown) Vital signs: (units unknown) (unknown) (unknown) (no date) (unknown) (unknown) Weakness, Visu al blurriness, Cough (units unknown) (unknown) (unknown) (no date) (unknown) (unknown) XR chest 1V Stat (un its unknown) (unknown) (unknown) (no date) (unknown) (unknown) acute distress . Sitting in a wheelchair. [place] (units unknown) (unknown) (unknown) (no date) (unknown) (unknown) additional outpatient follow up (units unknown) (unknown) (unknown) (no date) (unknown) (unknown) aerosol inhale r (Ventolin HFA) (units unknown) (unknown) (unknown) (no date) (unknown) (unknown) albuterol sulf ate 90 mcg/actuation 2 puff inhalation Q6H PRN Wheezing 12/29/20 (units unknown) (unknown) (unknown) (no date) (unknown) (unknown) albuterol sulf ate [Ventolin HFA] 90 mcg/actuation Hfa Aerosol Inhaler (units unknown) (unknown) (unknown) (no date) (unknown) (unknown) alcohol intake frequency: other (units unknown) (unknown) (unknown) (no date) (unknown) (unknown) alprazolam 1 m g tablet mg 07/11/21 (units unknown) (unknown) (unknown) (no date) (unknown) (unknown) alprazolam 1 m g tablet (units unknown) (unknown) (unknown) (no date) (unknown) (unknown) also concerned about a pain in her back between her shoulder blades which (units unknown) (unknown) (unknown) (no date) (unknown) (unknown) anastrozole 1 mg Tablet (units unknown) (unknown) (unknown) (no date) (unknown) (unknown) anastrozole 1 mg tablet 1 mg PO DAILY #30 tabs 08/17/21 (units unknown) (unknown) (unknown) (no date) (unknown) (unknown) and verbalizes understanding. She chooses with full knowledge to sign out (units unknown) (unknown) (unknown) (no date) (unknown) (unknown) and weak like she might fall this morning and chose to come into the ED. She is (units unknown) (unknown) (unknown) (no date) (unknown) (unknown) appear (units unknown) (unknown) (unknown) (no date) (unknown) (unknown) as well as blo od work including CBC and CMP and possible further imaging to (units unknown) (unknown) (unknown) (no date) (unknown) (unknown) ascorbic acid (vitamin C) 500 mg 500 mg PO DAILY 01/25/22 01/25/22 (units unknown) (unknown) (unknown) (no date) (unknown) (unknown) ascorbic acid (vitamin C) [Vitamin C] 500 mg Tablet (units unknown) (unknown) (unknown) (no date) (unknown) (unknown) atypical pneum onia with antibiotic and steroid given that she has COPD and she (units unknown) (unknown) (unknown) (no date) (unknown) (unknown) been reviewed with patient as well as indications for ED re-evaluation and (units unknown) (unknown) (unknown) (no date) (unknown) (unknown) breast cancer several years ago. She notes that she had a CT last month with (units unknown) (unknown) (unknown) (no date) (unknown) (unknown) breath or whee zing, but she does report some visual blurriness for the last (units unknown) (unknown) (unknown) (no date) (unknown) (unknown) but says she d oes not ever have a fever. Of note, she reports a history of (units unknown) (unknown) (unknown) (no date) (unknown) (unknown) cholecalcifero l (vitamin D3) 25 1,000 unit DAILY 01/25/22 01/25/22 (units unknown) (unknown) (unknown) (no date) (unknown) (unknown) cholecalcifero l (vitamin D3) [Vitamin D3] 25 mcg (1,000 unit) Tablet (units unknown) (unknown) (unknown) (no date) (unknown) (unknown) concerning [facility] she was to follow up on. She states that she is uncertain if (units unknown) (unknown) (unknown) (no date) (unknown) (unknown) cruise and new onset weakness this morning. She denies chest pain, shortness of (units unknown) (unknown) (unknown) (no date) (unknown) (unknown) develop concer wilmar symptoms or continues to experience weakness, I recommend (units unknown) (unknown) (unknown) (no date) (unknown) (unknown) disturbance, P E, sinusitis, bronchitis, atypical pneumonia (units unknown) (unknown) (unknown) (no date) (unknown) (unknown) dizziness and visual blurriness. We discussed what some of these issues may be (units unknown) (unknown) (unknown) (no date) (unknown) (unknown) drainage. (units unknown) (unknown) (unknown) (no date) (unknown) (unknown) eat because daksha hammond came straight to the emergency room due to her dizziness. She (units unknown) (unknown) (unknown) (no date) (unknown) (unknown) fluticasone propionate 50 2 spray intranasal DAILY 12/29/20 01/25/22 (units unknown) (unknown) (unknown) (no date) (unknown) (unknown) fluticasone propionate 50 mcg/actuation [place],Suspension (units unknown) (unknown) (unknown) (no date) (unknown) (unknown) for COVID, flu and RSV. (units unknown) (unknown) (unknown) (no date) (unknown) (unknown) furosemide 40 mg tablet (Lasix) 40 mg PO PRN PRN Edema 01/25/22 01/25/22 (units unknown) (unknown) (unknown) (no date) (unknown) (unknown) furosemide [La six] 40 mg tablet (units unknown) (unknown) (unknown) (no date) (unknown) (unknown) further evalua te and rule out possible concerning causes of new onset of (units unknown) (unknown) (unknown) (no date) (unknown) (unknown) has been havin g symptoms for the last 7 days. She is agreeable to plan of care (units unknown) (unknown) (unknown) (no date) (unknown) (unknown) has been revie wed. I agree with assessment and plan. (units unknown) (unknown) (unknown) (no date) (unknown) (unknown) her primary ca re for her regular lung cancer screening and it showed something (units unknown) (unknown) (unknown) (no date) (unknown) (unknown) including ACS, electrolyte disturbance, pneumonia not seen on chest x-ray or (units unknown) (unknown) (unknown) (no date) (unknown) (unknown) increased risk for developing severe illness. We did discuss that should she (units unknown) (unknown) (unknown) (no date) (unknown) (unknown) it took for he r to be seen. We discussed that although her chest x-ray is (units unknown) (unknown) (unknown) (no date) (unknown) (unknown) mcg (1,000 uni t) tablet (Vitamin (units unknown) (unknown) (unknown) (no date) (unknown) (unknown) mcg/actuation nasal (units unknown) (unknown) (unknown) (no date) (unknown) (unknown) metformin 500 mg Tablet (units unknown) (unknown) (unknown) (no date) (unknown) (unknown) metformin 500 mg tablet 500 mg PO DAILY 01/25/22 01/25/22 (units unknown) (unknown) (unknown) (no date) (unknown) (unknown) mg tablet (Percocet) (units unknown) (unknown) (unknown) (no date) (unknown) (unknown) mirtazapine 30 mg Tablet (units unknown) (unknown) (unknown) (no date) (unknown) (unknown) mirtazapine 30 mg tablet 30 mg PO DAILY 01/25/22 01/25/22 (units unknown) (unknown) (unknown) (no date) (unknown) (unknown) negative, I am concerned for her symptoms of dizziness and visual blurriness (units unknown) (unknown) (unknown) (no date) (unknown) (unknown) notes that she smokes about a pack a day and has COPD. She notes she takes (units unknown) (unknown) (unknown) (no date) (unknown) (unknown) other concerni ng cause. We discussed that if she does leave now, she is at (units unknown) (unknown) (unknown) (no date) (unknown) (unknown) oxycodone-acet amino phen 10 mg-325 1 tab PO DAILY 06/15/21 01/25/22 (units unknown) (unknown) (unknown) (no date) (unknown) (unknown) oxycodone-acet amino phen [Percocet] 10-325 mg Tablet (units unknown) (unknown) (unknown) (no date) (unknown) (unknown) patent. [place] midline. TMs pearly guajardo with good COL. (units unknown) (unknown) (unknown) (no date) (unknown) (unknown) quetiapine 25 mg Tablet (units unknown) (unknown) (unknown) (no date) (unknown) (unknown) quetiapine 25 mg tablet 25 mg PO DAILY 12/29/20 01/25/22 (units unknown) (unknown) (unknown) (no date) (unknown) (unknown) quetiapine 25 mg tablet 50 mg PO BEDTIME 12/29/20 01/25/22 (units unknown) (unknown) (unknown) (no date) (unknown) (unknown) rales, or rhonchi. ( units unknown) (unknown) (unknown) (no date) (unknown) (unknown) ray. (units unknown) (unknown) (unknown) (no date) (unknown) (unknown) remission, presenting for evaluation of a cough x7 days after returning from a (units unknown) (unknown) (unknown) (no date) (unknown) (unknown) sensation of h er ears being clogged. She also endorses body aches and chills (units unknown) (unknown) (unknown) (no date) (unknown) (unknown) several days, headache characterized by increased frontal facial pressure, and (units unknown) (unknown) (unknown) (no date) (unknown) (unknown) she feels weak at this time, but is afraid to stand up because it may cause her (units unknown) (unknown) (unknown) (no date) (unknown) (unknown) sinuses, clear to auscultation bilaterally (units unknown) (unknown) (unknown) (no date) (unknown) (unknown) spray,suspension (un its unknown) (unknown) (unknown) (no date) (unknown) (unknown) started yester day. She says that she fixed her food this morning but did not (units unknown) (unknown) (unknown) (no date) (unknown) (unknown) starting with EKG and bloodwork. (units unknown) (unknown) (unknown) (no date) (unknown) (unknown) surgery or coagulation problems in the past. She reports nasal congestion and a (units unknown) (unknown) (unknown) (no date) (unknown) (unknown) tablet (Vitamin C) ( units unknown) (unknown) (unknown) (no date) (unknown) (unknown) that she retur n for this further evaluation. I will go ahead and treat for an (units unknown) (unknown) (unknown) (no date) (unknown) (unknown) tiotropium bro mide 18 mcg capsule 1 cap inhalation DAILY 12/29/20 01/25/22 (units unknown) (unknown) (unknown) (no date) (unknown) (unknown) to fall. (units unknown) (unknown) (unknown) (no date) (unknown) (unknown) tobacco type: cigarettes (units unknown) (unknown) (unknown) (no date) (unknown) (unknown) turmeric 400 m g Capsule (units unknown) (unknown) (unknown) (no date) (unknown) (unknown) turmeric 400 m g capsule mg PO 12/29/20 (units unknown) (unknown) (unknown) (no date) (unknown) (unknown) unremarkable.? (unit s unknown) (unknown) (unknown) (no date) (unknown) (unknown) weakness occur ring suddenly this morning. She says that she felt suddenly dizzy (units unknown) (unknown) (unknown) (no date) (unknown) (unknown) with HandiHaler) (un its unknown) (unknown) (unknown) (no date) (unknown) (unknown) with external palpation, no focal spinal tenderness (units unknown) (unknown) (unknown) (no date) (unknown) (unknown) with her significant comorbidities. We discussed that I think she needs an EKG (units unknown) (unknown) (unknown) (no date) (unknown) (unknown) with inhalatio n device (Spiriva (units unknown) (unknown) (unknown) (no date) (unknown) (unknown) would like to leave without further workup reportedly due to the amount of time (units unknown) (unknown) Social History date description facility 2022-09-03 00:00 Smokes tobacco daily (finding) [facility] Vital Signs date measurement value units 2022-08-01 00:00 BP_diastolic 68 mmHg 2022-08-01 00:00 BP_systolic 123 mmHg 2022-08-01 00:00 heart_rate 76 /min 2022-08-01 00:00 o2_saturation 100 % 2022-08-01 00:00 respiration_rate 18 /min 2022-08-01 00:00 temperature_metric 37.06 C 2022-08-01 00:00 temperature_standard 98.7 F 2022-08-01 00:00 weight_metric 108 kg 2022-08-01 00:00 weight_standard 238.1 lb 2022-09-03 00:00 BMI 38.7 kg/m2 2022-09-03 00:00 BP_diastolic 82 mmHg 2022-09-03 00:00 BP_systolic 131 mmHg 2022-09-03 00:00 heart_rate 89 /min 2022-09-03 00:00 height_metric 167.64 cm 2022-09-03 00:00 height_standard 66 in 2022-09-03 00:00 o2_saturation 99 % 2022-09-03 00:00 respiration_rate 18 /min 2022-09-03 00:00 temperature_metric 36.11 C 2022-09-03 00:00 temperature_standard 97 F 2022-09-03 00:00 weight_metric 108.86 kg 2022-09-03 00:00 weight_standard 240 lb
--- NOTE | 2022-09-12 00:16 | ED Physician Documentation ---
History of Present Illness - Stated complaint Stated Complaint: GEN WEAKNESS - Chief complaint Chief Complaint: Resp - History obtained from History obtained from: Patient - Additonal information Additional information: HPI from patient. Patient c/o 2 days generalized weakness. She was T+R from ED 1 week ago for URI symptoms, rx antibiotics and steroids, has completed both prescriptions with improvement in URI symptoms, now presents with generalized weakness. Denies fever, dyspnea, chest pain, lightheadedness, cough. Review of Systems Constitutional: denies: Fever, Chills, Sweats Cardiac: reports: Reviewed and negative Respiratory: reports: Reviewed and negative GI: reports: Reviewed and negative Neurologic: reports: Generalized weakness. 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: Uterine cancer, Breast cancer : None HEENT: Chronic hearing loss Psych: Depression, Anxiety Musculoskeletal: None, Other Derm: None - Past Surgical History Past Surgical History: Yes General: Cholecystectomy, Appendectomy Ortho: Other /DATA MODELING SPECIALIST: Hysterectomy, Mastectomy - Present Medications Home Medications: Ambulatory Orders Medication Instructions Recorded Confirmed Quetiapine Fumarate [Seroquel] 25 mg PO BID 05/27/18 01/19/22 Anastrozole [Arimidex] 1 mg PO DAILY #90 tab 01/28/20 01/19/22 Furosemide [Lasix] 40 mg PO BID 10/03/21 01/19/22 Mirtazapine 30 mg PO DAILY 12/08/21 01/19/22 Potassium Chloride [Micro-K] 10 meq PO DAILY 12/08/21 01/19/22 Tiotropium [place] [Spiriva] 1 cap NEB DAILY 12/08/21 01/19/22 metFORMIN [Glucophage] 500 mg PO BID 12/08/21 01/19/22 Albuterol Sulf [Ventolin Hfa 2 puffs PO Q6HR PRN 01/12/22 01/12/22 Inhaler] Insulin Glargine [Lantus Solostar] 12 unit SQ DAILY PRN 01/12/22 01/19/22 Oxycodone HCl 10 mg PO BID 01/12/22 01/12/22 - Allergies Allergies/Adverse Reactions: Allergies Allergy/AdvReac Type Severity Reaction Status Date / Time No Known Drug Allergies Allergy Verified 10/31/21 07:49 - Social History Does the pt smoke?: Yes Smoking Status: Current every day smoker Does the pt drink ETOH?: No Does the pt have substance abuse?: No - Immunizations Immunizations are current?: Yes - POLST Patient has POLST: No PD ED PE NORMAL - Vitals Vital signs reviewed: Yes - General General: Alert and oriented X 3, No acute distress, Well developed/nourished - Neck Neck: Supple, no meningeal sign - Cardiac Cardiac: RRR, No murmur, No gallop, No rub - Respiratory Respiratory: No respiratory distress, Clear bilaterally - Abdomen Abdomen: Normal bowel sounds, Soft, Non tender, Non distended - Back Back: No CVA TTP - Derm Derm: Normal color, Warm and dry - Extremities Extremities: No edema Results - Vitals Vitals: Oxygen O2 Source Room air - EKG (time done) No standard instances EKG releavant findings:: EKG personally interpreted by author of this note. Relevant findings are: Rate: Rate (enter#) (96) Rhythm: NSR [place]: Normal Intervals: Normal [place] QRS: Normal Ischemia: Normal ST segments - Labs Labs: Laboratory Tests 09/12/22 09/12/22 09/12/22 00:27 00:27 00:27 WBC 11.3 H RBC 4.56 Hgb 14.0 Hct 42.7 MCV 93.6 MCH 30.7 MCHC 32.8 RDW 13.6 Plt Count 227 MPV 9.6 Neut # (Auto) 8.0 H Lymph # (Auto) 2.2 Taylor # (Auto) 0.9 Eos # (Auto) 0.2 Baso # (Auto) 0.0 Absolute Nucleated RBC 0.00 Nucleated RBC % 0.0 Sodium 142 Potassium 3.5 Chloride 106 Carbon Dioxide 26 Anion Gap 10.0 BUN 26 H Creatinine 1.0 Estimated GFR (MDRD) 55 L Glucose 157 H Calcium 9.1 Total Bilirubin 0.5 AST 15 ALT 16 Alkaline Phosphatase 66 Troponin I High Sens B-Natriuretic Peptide 26 Total Protein 6.7 Albumin 3.5 Globulin 3.2 Albumin/Globulin Ratio 1.1 Lipase 31 Urine Color Urine Clarity Urine pH Ur Specific [place] Urine Protein Urine Glucose (UA) Urine Ketones Urine Occult Blood Urine Nitrite Urine Bilirubin Urine Urobilinogen Ur Leukocyte Esterase Urine RBC Urine WBC Ur Squamous Epith Cells Urine Bacteria Urine Mucus Ur Microscopic Review Urine Culture Comments 09/12/22 09/12/22 00:27 02:16 WBC RBC Hgb Hct MCV MCH MCHC RDW Plt Count MPV Neut # (Auto) Lymph # (Auto) Taylor # (Auto) Eos # (Auto) Baso # (Auto) Absolute Nucleated RBC Nucleated RBC % Sodium Potassium Chloride Carbon Dioxide Anion Gap BUN Creatinine Estimated GFR (MDRD) Glucose Calcium Total Bilirubin AST ALT Alkaline Phosphatase Troponin I High Sens 2.9 B-Natriuretic Peptide Total Protein Albumin Globulin Albumin/Globulin Ratio Lipase Urine Color YELLOW Urine Clarity CLEAR Urine pH 5.5 Ur Specific [place] >=1.030 H Urine Protein 30 H Urine Glucose (UA) NEGATIVE Urine Ketones 15 H Urine Occult Blood NEGATIVE Urine Nitrite NEGATIVE Urine Bilirubin NEGATIVE Urine Urobilinogen 0.2 (NORMAL) Ur Leukocyte Esterase NEGATIVE Urine RBC None Seen Urine WBC 0-3 Ur Squamous Epith Cells RARE Squamous Urine Bacteria None Seen Urine Mucus Few Strands Ur Microscopic Review INDICATED Urine Culture Comments NOT INDICATED - Rads (name of study) chest xray Relevant Findings:: Prelim report reviewed, See rad report PD Medical Decision Making - ED course Complexity details: reviewed results, re-evaluated patient, considered differential, d/w patient ED course: No concerning nor diagnostic results on tonight's tests, including CBC, ER abdominal panel, BNP, UA, EKG, chest xray. Etiology of symptoms is not apparent at this time. Results d/w patient, advised to follow up with PMD, return precautions reviewed Departure - Departure Disposition: 01 Home, Self Care Clinical Impression: Weakness Condition: Good Instructions: ED Weakness [facility] Comments: There were no concerning or diagnostic findings on tonight's tests including the EKG, chest x-ray, blood test, and urinalysis. Your white blood cell count was minimally elevated; this is a nonspecific finding and not nearly high enough to suggest a dangerous/emergent process. There is no indication of an infection on the chest x-ray such as pneumonia, nor the urinalysis such as a urinary tract infection. At this time, the cause of your weakness is not apparent. Further testing in the emergency department at this time is unlikely to result or suggest a diagnosis. Contact your primary care provider in the morning when the office opens to arrange for next available appointment for reevaluation. Further testing might be helpful should the symptoms persist or worsen. Discharge Date/Time: 09/12/22 04:10
[2022-09-12 00:32] LABS: BASOPHILS % (AUTO) 0.4 %; EOSINOPHILS # (AUTO) 0.2 10^3/uL (0.0-0.7); EOSINOPHILS % (AUTO) 1.4 %; HCT - HEMATOCRIT 42.7 % (37.0-47.0); LYMPHOCYTES # (AUTO) 2.2 10^3/uL (1.5-3.5); LYMPHOCYTES % (AUTO) 19.2 %; MEAN CORPUSCULAR HEMOGLOBIN 30.7 pg (27.0-31.0); MEAN CORPUSCULAR HGB CONC 32.8 g/dL (32.0-36.0); MEAN CORPUSCULAR VOLUME 93.6 fL (81.0-99.0); MEAN PLATELET VOLUME 9.6 fL (7.9-10.8); MONOCYTES # (AUTO) 0.9 10^3/uL (0.0-1.0); MONOCYTES % (AUTO) 7.5 %; NEUTROPHILS % (AUTO) 71.1 %; PLT - PLATELET COUNT 227 10^3/uL (130-450); RED BLOOD COUNT 4.56 10^6/uL (4.20-5.40); RED CELL DISTRIBUTION WIDTH 13.6 % (12.0-15.0); WHITE BLOOD COUNT 11.3 x10^3/uL (4.8-10.8)
[2022-09-12 00:45] LABS: ALBUMIN 3.5 g/dL (3.2-5.5); ALBUMIN/GLOBULIN RATIO 1.1 (1.0-2.2); BILIRUBIN,TOTAL 0.5 mg/dL (0.2-1.0); CALCIUM 9.1 mg/dL (8.5-10.3); POTASSIUM 3.5 mmol/L (3.5-5.0); TOTAL PROTEIN 6.7 g/dL (6.7-8.2)
--- NOTE | 2022-09-12 01:20 | XRAY Report ---
PROCEDURE: Chest 2 View X-Ray INDICATIONS: dyspnea TECHNIQUE: 2 views of the chest were acquired. COMPARISON: Chest x-ray 10/31/2021. FINDINGS: Surgical changes and devices: There is a left glenohumeral joint prosthesis. Lungs and pleura: No pleural effusions or pneumothorax. Lungs are clear. Mediastinum: Mediastinal contours appear normal. Heart size is normal. Bones and chest wall: No suspicious bony lesions. Deformity of the right humeral head is redemonstr ated suggesting sequelae of prior trauma. Overlying soft tissues appear unremarkable. IMPRESSION: 1. No acute cardiopulmonary disease. Reviewed by: Yusuf Edwards MD on 09/12/2022 1:18 AM PDT Approved by: Yusuf Edwards MD on 09/12/2022 1:18 AM PDT Station ID: [id number]
[2022-09-12 02:24] LABS: BILIRUBIN,URINE NEGATIVE (NEGATIVE); GLUCOSE, URINE (UA) NEGATIVE (NEGATIVE); KETONES,URINE (UA) 15 mg/dL (NEGATIVE); LEUKOCYTE ESTERASE, URINE NEGATIVE (NEGATIVE); NITRITE,URINE NEGATIVE (NEGATIVE); OCCULT BLOOD,URINE NEGATIVE (NEGATIVE); PH,URINE 5.5 PH (5.0-7.5); PROTEIN,URINE 30 mg/dL (NEGATIVE); UROBILINOGEN,URINE 0.2 (NORMAL) E.U./dL (NORMAL)
[2022-09-12 02:31] LABS: BACTERIA,URINE None Seen /HPF (None Seen); CLARITY,URINE CLEAR (CLEAR); MUCUS,URINE Few Strands; RBC,URINE None Seen /HPF (0-5); SQUAMOUS EPITHELIAL CELL,UR RARE Squamous (<= Few); WBC,URINE 0-3 /HPF (0-5)
[2022-09-12 04:42] VITALS: BP 117/73
== END 2022-09-12 04:10 | disposition home or self-care (01) ==
LOC: EDUNIT# → ED 23:11
DX: R53.1 Weakness (principal); F17.200 Nicotine dependence, unspecified, uncomplicated
CPT/HCPCS: 36415; 80053; 81001; 81003; 83690; 83880; 84484; 85025; 87086; 93005; 99283; 99284

== ENCOUNTER 2023-06-21 09:43 | Outpatient (CLI) | payer MEDICARE, OTHER ==
[2023-06-21 11:40] LABS: BASOPHILS # (AUTO) 0.1 10^3/uL (0.0-0.1); BASOPHILS % (AUTO) 1.1 %; EOSINOPHILS # (AUTO) 0.2 10^3/uL (0.0-0.7); EOSINOPHILS % (AUTO) 3.8 %; HCT - HEMATOCRIT 38.3 % (37.0-47.0); HGB - HEMOGLOBIN 12.6 g/dL (12.0-16.0); LYMPHOCYTES # (AUTO) 1.7 10^3/uL (1.5-3.5); LYMPHOCYTES % (AUTO) 38.1 %; MEAN CORPUSCULAR HGB CONC 32.9 g/dL (32.0-36.0); MEAN CORPUSCULAR VOLUME 106.4 fL (81.0-99.0); MEAN PLATELET VOLUME 9.3 fL (7.9-10.8); MONOCYTES # (AUTO) 0.4 10^3/uL (0.0-1.0); MONOCYTES % (AUTO) 9.9 %; NEUTROPHILS # (AUTO) 2.1 10^3/uL (1.5-6.6); NEUTROPHILS % (AUTO) 46.9 %; PLT - PLATELET COUNT 236 10^3/uL (130-450); RED CELL DISTRIBUTION WIDTH 13.6 % (12.0-15.0); WHITE BLOOD COUNT 4.4 x10^3/uL (4.8-10.8)
[2023-06-21 11:57] LABS: ESTIMATED AVERAGE GLUCOSE 131 mg/dL (70-100); HEMOGLOBIN A1c% 6.2 % (4.27-6.07)
[2023-06-21 12:04] LABS: ALBUMIN/GLOBULIN RATIO 1.5 (1.0-2.2); BILIRUBIN,TOTAL 0.3 mg/dL (0.2-1.0); CALCIUM 9.4 mg/dL (8.5-10.3); CREATININE 0.7 mg/dL (0.6-1.3); POTASSIUM 4.5 mmol/L (3.5-4.5); TOTAL PROTEIN 6.7 g/dL (6.4-8.9)
[2023-06-21 12:08] LABS: CREATININE,URINE 41.1 mg/dL
[2023-06-21 12:09] LABS: MICROALBUMIN,URINE < 0.7 mg/dL
[2023-06-21 12:11] LABS: THYROID STIMULATING HORMONE 1.98 uIU/mL (0.34-5.60)
== END 2023-06-21 09:44 | disposition home or self-care (01) ==
LOC: LAB.N 09:43
PROVIDERS: ATTEND Nurse Practitioner
DX: E11.9 Type 2 diabetes mellitus without complications (principal); I50.9 Heart failure, unspecified; R53.83 Other fatigue
CPT/HCPCS: 36415; 80053; 82043; 82570; 83036; 84443; 85025